=== PATIENT | female | born 1950 | race American Indian/Alaskan Native ===

== ENCOUNTER 2017-01-30 11:54 | Day surgery (SDC) | payer MEDICARE, OTHER ==
[2017-01-28 14:31] VITALS: RESP 18
--- NOTE | 2017-01-30 13:40 | CP.SDSHP ---
Same Day Surgery H & P - History Proposed Procedure: Left foot wound debridement with graft application. Pre-Op Diagnosis: Left foot venous stasis wound - Previous Medical/Surgical History Cardiac: Hypertension Pain: 5. Comments: Right eye-Glaucoma Previous Surgical History: Right Knee replacement- 2009 - Allergies Allergies: Allergies amoxicillin Allergy (Verified 01/27/17 16:13) RASH Penicillins Allergy (Verified 01/27/17 16:13) RASH shellfish derived Allergy (Verified 01/27/17 16:13) PAIN Sulfa (Sulfonamide Antibiotics) Allergy (Verified 01/27/17 16:13) RASH - Current Medications Current Medications: Losartan Lasix Neurontin 300mg TID - Physical Exam Vital Signs: Vital Signs 01/30/17 01/30/17 12:45 13:10 Temperature 97.7 F Pulse Rate 78 78 Respiratory 18 Rate Blood Pressure 131/81 O2 Sat by Pulse 100 Oximetry Mental Status: Alert & Oriented x3 Neuro: WNL Heart: WNL Lungs: WNL GI: WNL - {Optional Preform as Required} Integument: Other (Right lateral ankle partial thickness ulceration measuring 4 x 7.5 cm with sloughing exutate.) Ortho: WNL - Impression Impression: Pt was seen and examined in [facility]. Pt NPO status was confirmed. All Pre-op testing and clearance was in the chart. Pt has exhausted all conservative treatment at this time and is opting for surgical intervention. Pt was explained procedure and post-operative course. All pt's questions were answered to satisfaction. No guarantees were made. Pt understands all risks, benefits and complications of procedure. Pt will follow-up with Dr. Schaffer Pt. Evaluated Today:Candidate for Anesthesia & Procedure: Yes - Date & Time Date: 01/30/17 Time: 14:00 Short Stay Discharge - Short Stay Discharge Admitting Diagnosis/Reason for Visit: L97.912/I87.301 Disposition: HOME/ ROUTINE Medications: Acetaminophen with Codeine [Tylenol with Codeine #3 Tablet] 1 each PO TID #21 tablet Referrals: Vitaly Mabry [Primary Care Provider] - [facility] [Outside] Follow-up: Within 1 week in [facility]. Additional Instructions (Diet, Activity): Patient in good/stable condition for discharge home. Pt to resume medications per medical reconciliation. Resume regular diet. Please keep dressing clean, dry, & intact to surgical site, use plastic bag over bandage for showering, wear post op shoe at all times when ambulating, call clinic if you see signs of infection (redness, swelling, malodor), please make an appointment to see Dr. Schaffer in wound care center within 1 week for post-op check. Progress Note/Discharge Note with Instructions: - Patient evaluated bedside in recovery s/p surgical procedure. - After surgical procedure patient in NAD - (+) Void, (+) Appetite - Capillary refill time <3s and NVSI intact. - Patient denies complaints at this time - Post operative instructions and plan of care explained to patient at length. - Pt. acknowledges understanding. - Patient stable for DC per podiatric surgery
--- NOTE | 2017-01-30 13:40 | CP.PCM.PN ---
Subjective - Date & Time of Evaluation Date of Evaluation: 01/30/17 Time of Evaluation: 14:00 - Subjective Subjective: 66 year old female patient seen at bedside for pre-operative assessment concerning right leg wound graft application and wound debridement. Pt has been receiving wound care treatment isn't [facility] wound care center and is in need of surgical intervention a this time. Pt reports she has been NPO since 8pm yesterday evening. Pt reports burning and tingling in her right leg in area of wound which she attributes to he not taking her Neurontin as needed. Pt denies recent f/c/cp/sob/n/v. Objective - Vital Signs/Intake and Output Vital Signs (last 24 hours): Temp Pulse Resp BP Pulse Ox 97.7 F 78 18 131/81 100 01/30/17 12:45 01/30/17 13:10 01/30/17 12:45 01/30/17 12:45 01/30/17 12:45 - Constitutional Appears: Well, Non-toxic, No Acute Distress - Extremities Exam Additional comments: Compressive dressing clena, dry,, and intact. Neuro-vascular status intact to level of digits. Right leg lateral superficial ulceration - Neurological Exam Neurological Exam: Alert, Awake, Oriented x3 - Psychiatric Exam Psychiatric exam: Normal Affect, Normal Mood Assessment and Plan - Assessment and Plan (Free Text) Assessment: 66 year old male with right leg superficial ulceration. Plan: Pt was seen and examined in [facility] Pt NPO status was confirmed All Pre-op testing and clearance was in the chart Pt has exhausted all conservative treatment at this time and is opting for surgical intervention Pt was explained procedure and post-operative course All pt's questions were answered to satisfaction No guarantees were made Pt understands all risks, benefits and complications of procedure Pt will follow-up with Dr. Schaffer
[2017-01-30 14:33] VITALS: BMI 31.1
[2017-01-30] MEDS ORDERED: Bupivacaine 0.5% Inj(30mL) ONE (15:05)
[2017-01-30] MEDS ORDERED: Lidocaine 1% Inj (20ml) ONE (15:05)
[2017-01-30] MEDS ORDERED: Propofol 10 mg/ml Inj (20 ML) ONE (15:26)
[2017-01-30] MEDS ORDERED: Midazolam 2 MG/2 ML VIAL ONE (15:27)
[2017-01-30] MEDS ORDERED: Lidocaine Hydrochloride 5 ML INJ ONE (15:27)
[2017-01-30] MEDS ORDERED: Lactated Ringer's 1,000 ML IV ONE (15:50)
[2017-01-30] MEDS ORDERED: Bupivacaine 0.5% 50 ML IJ ONE (15:55)
[2017-01-30] MEDS ORDERED: Lidocaine 1% Inj (20ml) IJ ONE (15:55)
[2017-01-30] MEDS ORDERED: Oxycodone/Acetaminophen 5/325 mg Tab PO PRN ×2 (16:34)
[2017-01-30] MEDS ORDERED: Lactated Ringer's 1,000 ML IV SCH (16:37)
[2017-01-30] MEDS ORDERED: HYDROmorphone 0.5 mg/0.5 ml ISec IVP PRN (16:37)
--- NOTE | 2017-01-30 16:38 | PCM.SURG1 ---
Surgeon's Initial Post Op Note - Surgeon's Notes Surgeon: Dr. Bernard Piper Installer: Dr. Aranda PGY-1 Type of Anesthesia: General LMA, Local Anesthesia Administered By: Dr. Sands Pre-Operative Diagnosis: right leg chronic venous stasis ulceration Operative Findings: see operative report: Injectibles: 20 cc 1:1 mix 1% licoaine plain + 0.5 % marcaine plain. Materials: Neox cord graft 6.0x3.0cm, 4- 0 vircyl suture Post-Operative Diagnosis: same Operation Performed: right leg debridement of ulceration with application of graft Specimen/Specimens Removed: none Estimated Blood Loss: EBL {In ML}: 2 Blood Products Given: N/A Drains Used: No Drains Post-Op Condition: Good Date of Surgery/Procedure: 01/30/17 Time of Surgery/Procedure: 15:50
[2017-01-30 17:38] VITALS: O2SAT 98
[2017-01-30 18:21] VITALS: BP 141/73; PULSE 85; TEMP 98.5
--- NOTE | 2017-01-31 14:30 | OP ---
PROCEDURE DATE: 01/30/2017 SURGEON: Dr. Bernard. SLASHER HAND: Dr. Aranda, PGY-1. ANESTHESIOLOGIST: Dr. Sands. ANESTHESIA: General LMA sedation with local. PREOPERATIVE DIAGNOSIS: Right leg chronic ulceration. POSTOPERATIVE DIAGNOSIS: Right leg chronic ulceration. PROCEDURE PERFORMED: Right leg wound debridement with application of graft. INDICATIONS: The patient is a 66-year-old female with the above diagnosis. The patient has been see ing Dr. Bernard in the wound care center weekly. The patient has exhausted all conservative treatm ent at this time and now requires surgical intervention. The patient ____ after careful explanation of risks, benefits, complications, alternatives for surgical procedure. No guarantees were given nor implied. N.p.o. status was confirmed prior to taking the patient to the OR. The patient received a 1 time dose of 600 mg clindamycin IV prior to the procedure. PREPARATION: The patient was brought into the operating room, place on the operating room table in supine position. Timeout was performed prior to confirm identification of correct patient, procedure . After induction of IV sedation, the patient received a total of 20 mL of 1:1 mixture of 0.5% Mary Ellen ine plain and 1% lidocaine plain in a local block fashion to the right leg. Once local anesthesia wa s achieved, the right lower extremity were prepped and draped in normal sterile manner. The procedur e began. No tourniquet was used for this procedure. DESCRIPTION OF PROCEDURE: Attention was then directed to the lateral aspect of the right leg where s uperficial ulceration was noted measuring 4.0 x 7.5 x 0.3 cm. Using the Sunglassonix system, the wound be d was debrided of all fibrotic and nonviable tissue, which was passed from the operative field to the point of healthy bleeding at wound base and borders. A chlorhexidine scrub brush was then used to t horoughly cleanse the wound bed and the wound was copiously flushed with sterile normal saline. A 6. 0 x 3.0 cm NEOX cord graft was then moistened with sterile saline and applied to the wound bed. Usin g #4-0 Vicryl suture the corners of the graft were then sutured to the wound and anchored in place us ing simple suture technique. The wound was then dressed with Adaptic, 4 x 4 gauze, Kerlix, and the l eg was dressed with BRIAN compressive bandage. POSTOPERATIVE CONDITION: The patient tolerated anesthesia and the procedure well and was escorted to the recovery room with vital signs stable and neurovascular status intact to the right lower extremi ty. The patient is to keep the dressing clean, dry and intact and may weightbear as tolerated to the right lower extremity. She is to follow up with Dr. Bernard at the wound care center next week. IVETT ARANDA DPM Froilan Schaffer DPM cc: [id number] TT: 01/31/2017 14:29:57 jn
== END 2017-01-30 19:07 | disposition home or self-care (01) ==
LOC: H.OPSURG 11:54
PROVIDERS: ATTEND Podiatrist Foot & Ankle Surgery
DX: L97.912 Non-pressure chronic ulcer of unspecified part of right lower leg with fat layer exposed (principal); I87.301 Chronic venous hypertension (idiopathic) without complications of right lower extremity; I10 Essential (primary) hypertension
CPT/HCPCS: 11042; J2250; J2704; J2765; J3010; J7030; J7120; Q4148

== ENCOUNTER 2017-04-04 05:11 | Emergency (ER) | payer MEDICARE, SELFPAY ==
[2017-04-04 05:11] VITALS: BMI 31.1
[2017-04-04 05:23] VITALS: RESP 18; TEMP 98.4
--- NOTE | 2017-04-04 05:52 | ED PDOC ---
Lower Extremity Pain/Injury Time Seen by Provider: 04/04/17 05:22 Chief Complaint (Nursing): Lower Extremity Problem/Injury Chief Complaint (Provider): Knee Pain History Per: Patient History/Exam Limitations: no limitations Onset/Duration Of Symptoms: Days (7+) Current Symptoms Are (Timing): Still Present Severity: Moderate Additional History Per: Patient Additional Complaint(s): 66 y/o female complaining of left knee pain, with swelling, that has been constant for some time, and worse over the last week. Pain is worse with ROM and weight bearing - and has been preventing her from participating in PT for knee arthritis. No known injury or fall. No fever, chills, cough, redness, warmth, or other complaint. She reports a history of right TKR in the past, and is here this morning for a left TKR. She also has a history of DVT and is on coumadin. PMD: Diya Mabry Orthopaedist: Dr. Sevilla Past Medical History Vital Signs: Last Vital Signs Temp 98.4 F 04/04/17 05:16 Pulse 96 H 04/04/17 05:16 Resp 18 04/04/17 05:16 BP 125/87 04/04/17 05:16 Pulse Ox 97 04/04/17 05:16 - Medical History PMH: Arthritis, Diabetes, Deep Vein Thrombosis (left upper arm), HTN, Rheumatoid Arthritis Denies: Chronic Kidney Disease - Surgical History Other surgeries: (R) TKR - Family History Family History: States: Unknown Family Hx - Social History Current smoker - smoking cessation education provided: No Alcohol: None - Immunization History Hx Tetanus Toxoid Vaccination: Yes Hx Influenza Vaccination: Yes Hx Pneumococcal Vaccination: Yes - Home Medications Home Medications: Ambulatory Orders Medication Instructions Recorded Furosemide [Lasix] 40 mg PO DAILY 12/05/15 Gabapentin [Neurontin] 300 mg PO TID 12/05/15 Zolpidem [Ambien] 10 mg PO HS PRN 01/16/16 Losartan [Cozaar] 100 mg PO DAILY 02/01/16 Multivit with Calcium,Iron,Min 1 tab PO DAILY 02/01/16 [One Daily Women's] Potassium Chloride [Klor-Con 10] 10 meq PO DAILY 02/01/16 Naproxen [Naprosyn Tab] 375 mg PO Q6H PRN 04/08/16 Doxycycline Hyclate [Doryx] 1 tab PO BID 01/27/17 traMADol [Ultram] 50 mg PO TID PRN #12 tab 04/04/17 - Allergies Allergies/Adverse Reactions: Allergies Allergy/AdvReac Type Severity Reaction Status Date / Time amoxicillin Allergy RASH Verified 03/17/17 14:48 Penicillins Allergy RASH Verified 03/17/17 14:48 shellfish derived Allergy PAIN Verified 03/17/17 14:48 Sulfa (Sulfonamide Allergy RASH Verified 03/17/17 14:48 Antibiotics) Review of Systems ROS Statement: Except As Marked, All Systems Reviewed And Found Negative Musculoskeletal: Positive for: Leg Pain Physical Exam - Physical Exam Appears: Positive for: Well Head Exam: Positive for: ATRAUMATIC, NORMAL INSPECTION, NORMOCEPHALIC Skin: Positive for: Normal Color, Warm ENT: Positive for: Normal ENT Inspection Neck: Positive for: Normal Cardiovascular/Chest: Positive for: Regular Rate, Rhythm Respiratory: Positive for: Normal Breath Sounds. Negative for: Rales, Rhonchi, Wheezing Back: Positive for: Normal Inspection Extremity: Positive for: Tenderness (left knee - with rom), Swelling (slight left knee effusion, left calf swelling noted, negative Shah's Sign), Other ( No warmth or redness of the left knee. ). Negative for: Deformity Neurologic/Psych: Positive for: Alert, Oriented - Laboratory Results Result Diagrams: 04/04/17 06:00 04/04/17 06:00 - ECG O2 Sat by Pulse Oximetry: 97 Medical Decision Making Medical Decision Making: Impression: 66 y/o female with left knee pain and swelling in the setting of known history of DVT and arthritis Plan: - Toradol - Venous Doppler LE - Knee XR - Labs 07:00: Sign out to Dr. Marisa Recinosibbharath Attestation Documented by Caro Alvarez acting as a scribe for Bryson Olea MD. Provider Attestation: All medical record entries made by the Scribe were at my direction and personally dictated by me. I have reviewed the chart and agree that the record accurately reflects my personal performance of the history, physical exam, medical decision making, and the department course for this patient. I have also personally directed, reviewed, and agree with the discharge instructions and disposition. Disposition - Clinical Impression Clinical Impression: Chronic knee pain, Arthritis - Disposition Referrals: Alejandra Sevilla MD [Staff Provider] - Disposition Time: 07:00 Condition: STABLE Additional Instructions: See orthopedist for definitive management of your knee pain. Take medication as directed. Prescriptions: traMADol [Ultram] 50 mg PO TID PRN #12 tab PRN Reason: Pain, Moderate (4-7) Instructions: Osteoarthritis (ED), Knee Pain (ED) Patient Signed Over To: Froilan Cunningham III
[2017-04-04 06:23] LABS: BASO % 0.2 % (0.0-2.0); EOS # 0.1 K/uL (0.0-0.7); EOS % 0.8 % (0.0-4.0); HEMOGLOBIN 11.7 g/dL (12.0-16.0); LYMPH # 1.6 K/uL (1.0-4.3); LYMPH % 14.4 % (20.0-40.0); MEAN CELL VOLUME 86.4 fl (81.0-99.0); MEAN CORPUSCULAR HEMOGLOBIN 26.7 pg (27.0-31.0); MEAN CORPUSCULAR HGB CONC 30.9 g/dL (33.0-37.0); MEAN PLATELET VOLUME 8.9 fl (7.2-11.7); MONO # 1.3 K/uL (0.0-0.8); MONO % 11.2 % (0.0-10.0); NEUT # 8.3 K/uL (1.8-7.0); NEUT % 73.4 % (50.0-75.0); NRBC % 0.2 % (0.0-0.0); RBC 4.39 Mil/uL (3.80-5.20); WHITE BLOOD COUNT 11.3 K/uL (4.8-10.8)
[2017-04-04 06:34] LABS: ALB/GLOB RATIO 1.2 (1.0-2.1); ALBUMIN 4.3 g/dL (3.5-5.0); ALT/SGPT 41 U/L (9-52); AST/SGOT 48 U/L (14-36); BLOOD UREA NITROGEN 18 mg/dl (7-17); CALCIUM 9.5 mg/dL (8.4-10.2); GFR AFRICAN-AMERICAN > 60; GFR NON-AFRICAN AMERICAN 56
[2017-04-04 06:45] LABS: INR 0.9 (0.9-1.2); PARTIAL THROMBOPLASTIN TIME 18.7 Seconds (25.6-37.1); PROTHROMBIN TIME 10.5 Seconds (9.8-13.1)
--- NOTE | 2017-04-04 07:12 | ED PDOC ---
- Laboratory Results Result Diagrams: 04/04/17 06:00 04/04/17 06:00 - ECG O2 Sat by Pulse Oximetry: 97 (RA) Pulse Ox Interpretation: Normal Medical Decision Making Medical Decision Making: Patient signed out to provider at [address] Olea pending US duplex and reevaluation. XRay reveals significant arthritic changes US duplex is negative for DVT per Dr García radiologist. DC home w tramadol and followup w Dr Leahy who she has reported to have seen prior. Scribe Attestation Documented by Gianna Cortez acting as a scribe for Froilan Cunningham MD. Provider Attestation: All medical record entries made by the Scribe were at my direction and personally dictated by me. I have reviewed the chart and agree that the record accurately reflects my personal performance of the history, physical exam, medical decision making, and the department course for this patient. I have also personally directed, reviewed, and agree with the discharge instructions and disposition. Disposition - Clinical Impression Clinical Impression: Chronic knee pain, Arthritis - POA Present On Arrival: None - Disposition Referrals: Alejandra Leahy MD [Staff Provider] - Disposition: Routine/Home Disposition Time: 09:30 Condition: STABLE Additional Instructions: See orthopedist for definitive management of your knee pain. Take medication as directed. Prescriptions: traMADol [Ultram] 50 mg PO TID PRN #12 tab PRN Reason: Pain, Moderate (4-7) Instructions: Osteoarthritis (ED), Knee Pain (ED)
--- NOTE | 2017-04-04 09:18 | US ---
PROCEDURE: Left lower extremity Extremity Venous Doppler HISTORY: Possible DVT COMPARISON: None available. TECHNIQUE: Left lower extremity deep veins, including the common femoral, superficial femoral popliteal and posterior tibial veins were evaluated flow, compressibility and respiratory phasicity. FINDINGS: Normal flow, compressibility and respiratory phasicity was observed in the left lower extremity deep veins. . Note also made of a left-sided popliteal cyst measuring 4.7 x 1.8 x 3.3 cm. IMPRESSION: No evidence of deep venous thrombosis. . Popliteal cyst as above
[2017-04-04 10:01] VITALS: BP 133/75; PULSE 80
[2017-04-04 11:24] VITALS: O2SAT 97
--- NOTE | 2017-04-04 13:18 | CP.PCM.CON ---
History of Present Illness - History of Present Illness History of Present Illness: 66 y/o female with PMHx of Arthritis, Diabetes, Deep Vein Thrombosis (left upper arm), HTN, Rheumatoid Arthritis seen at bedside in ED complaining of pain in her left knee and leakage on her bandage due to a wound on the right leg. Pt states that she follows up with her box order person Dr. Schaffer in the wound care clinic but was unable to do so this past week due to her knee pain. Pt states that she has had this wound for a very long time. Pt states that she recently had a graft placed on the wound in January of this year. Pt states that she noticed a little drainage on her bandage and was worried of it getting infected. Pt denies of any pain to the wound site. Pt denies of any recent F/N/C/SOB today. Pt denies of any other pedal complains. PMHx: Arthritis, Diabetes, Deep Vein Thrombosis (left upper arm), HTN, Rheumatoid Arthritis PSHx: TKR, Graft placement on the wound SHx: denies Allergies: Amoxicillin, Penicillins, Sulfa drugs, Shellfish Review of Systems - Constitutional Constitutional: As Per HPI Past Patient History - Past Medical History & Family History Past Medical History?: Yes - Past Social History Alcohol: None - CARDIAC Hx Hypertension: Yes - PULMONARY Hx Respiratory Disorders: No - NEUROLOGICAL Hx Neurological Disorder: No - HEENT Hx HEENT Problems: No - RENAL Hx Chronic Kidney Disease: No - ENDOCRINE/METABOLIC Hx Endocrine Disorders: No - HEMATOLOGICAL/ONCOLOGICAL Hx Blood Disorders: No - INTEGUMENTARY Hx Dermatological Problems: Yes Hx Cellulitis: Yes - MUSCULOSKELETAL/RHEUMATOLOGICAL Hx Arthritis: Yes Hx Rheumatoid Arthritis: Yes - GASTROINTESTINAL Hx Gastrointestinal Disorders: No - GENITOURINARY/GYNECOLOGICAL Hx Genitourinary Disorders: No - PSYCHIATRIC Hx Psychophysiologic Disorder: No Hx Substance Use: No - SURGICAL HISTORY Other/Comment: Skin graft to right lower leg 05/10/14. Closure skin/ SubQ . DV t to left arm maylin-cath - ANESTHESIA Hx Anesthesia: Yes Hx Anesthesia Reactions: No Hx Malignant Hyperthermia: No Meds Home Medications: Home Medication List Medication Instructions Recorded Confirmed Type traMADol [Ultram] 50 mg PO TID PRN #12 tab 04/04/17 Rx Allergies/Adverse Reactions: Allergies Allergy/AdvReac Type Severity Reaction Status Date / Time amoxicillin Allergy RASH Verified 03/17/17 14:48 Penicillins Allergy RASH Verified 03/17/17 14:48 shellfish derived Allergy PAIN Verified 03/17/17 14:48 Sulfa (Sulfonamide Allergy RASH Verified 03/17/17 14:48 Antibiotics) Physical Exam - Constitutional Appears: Well, Non-toxic, No Acute Distress - Extremities Exam Additional comments: Right LE focused exam: VASC: DP/PT pulses are palpable 1/4, 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 - Neurological Exam Neurological exam: Alert, Oriented x3 - Psychiatric Exam Psychiatric exam: Normal Affect, Normal Mood Results - Vital Signs Recent Vital Signs: Last Vital Signs Temp 98.4 F 04/04/17 05:16 Pulse 80 04/04/17 09:18 Resp 18 04/04/17 09:18 BP 133/75 04/04/17 09:18 Pulse Ox 97 04/04/17 11:24 - Labs Result Diagrams: 04/04/17 06:00 04/04/17 06:00 Labs: Laboratory Results - last 24 hr 04/04/17 04/04/17 04/04/17 06:00 06:00 06:00 WBC 11.3 H RBC 4.39 Hgb 11.7 L Hct 37.9 MCV 86.4 MCH 26.7 L MCHC 30.9 L RDW 16.0 H Plt Count 256 MPV 8.9 Neut % (Auto) 73.4 Lymph % (Auto) 14.4 L [place] % (Auto) 11.2 H Eos % (Auto) 0.8 Baso % (Auto) 0.2 Neut # 8.3 H Lymph # 1.6 [place] # 1.3 H Eos # 0.1 Baso # 0.0 PT 10.5 INR 0.9 APTT 18.7 L Sodium 142 Potassium 4.4 Chloride 104 Carbon Dioxide 27 Anion Gap 15 BUN 18 H Creatinine 1.0 Est GFR ( Amer) > 60 Est GFR (Non-Af Amer) 56 Random Glucose 101 Calcium 9.5 Total Bilirubin 0.5 AST 48 H ALT 41 Alkaline Phosphatase 119 Total Protein 7.8 Albumin 4.3 Globulin 3.6 Albumin/Globulin Ratio 1.2 Assessment & Plan - Assessment and Plan (Free Text) Assessment: 66 y/o female seen at bedside in ED for a wound on distal lateral aspect of the right leg secondary to venous stasis Plan: Pt evaluated and chart reviewed Pt discussed in details with attending Dr. Schaffer Vitals and labs reviewed (Afebrile, WBC @ 11.3) Dressing changed using adaptic, DSD, kurlix Carrera compression applied up to the knee Pt educated the importance of keeping the dressing dry and clean Pt educated the importance of following up with Dr. Schaffer at wound care center Pt demonstrated verbal understanding Thank you for podiatry consult
--- NOTE | 2017-04-04 16:40 | RAD ---
PROCEDURE: Left Knee Radiographs. HISTORY: Pain. COMPARISON: Comparison made with radiographs of the left knee dated 04/16/2016 FINDINGS: BONES: No definitive radiographic evidence of acute displaced fracture nor dislocation. JOINTS: Severe tricompartmental degenerative osteoarthritis with joint space narrowing, subchondral cystic changes and sclerosis. JOINT EFFUSION: Questionable small joint effusion OTHER FINDINGS: None. IMPRESSION: Severe tricompartmental degenerative osteoarthritis. No definitive fracture. The
== END 2017-04-04 13:30 | disposition home or self-care (01) ==
LOC: H.ER 05:11
DX: M25.562 Pain in left knee (principal); M17.12 Unilateral primary osteoarthritis, left knee; Z86.718 Personal history of other venous thrombosis and embolism; R60.0 Localized edema; E11.9 Type 2 diabetes mellitus without complications; G89.29 Other chronic pain; I10 Essential (primary) hypertension; Z88.0 Allergy status to penicillin
CPT/HCPCS: 73562; 80053; 85025; 85610; 85730; 93971; 96374; 99283; J1885

== ENCOUNTER 2017-05-26 06:16 | Inpatient (IN) | payer MEDICARE, SELFPAY ==
[2017-05-26 06:29] VITALS: BMI 30.2
[2017-05-26] MEDS ORDERED: Sodium Chloride 0.9% 20 ML IV ONE (07:45)
[2017-05-26] MEDS ORDERED: Absorbable Gelatin Sponge Size 100 ONE (07:46)
[2017-05-26] MEDS ORDERED: Thrombin Topical 5,000 IU Spray Kit ONE (07:46)
[2017-05-26] MEDS ORDERED: Bacitracin Ointment 30 GM TUBE ONE (07:46)
[2017-05-26] MEDS ORDERED: Lactated Ringer's 1,000 ML IV ONE ×2 (07:50→13:00)
[2017-05-26] MEDS ORDERED: Midazolam 2 MG/2 ML VIAL ONE (08:12)
[2017-05-26] MEDS ORDERED: Propofol 10 mg/ml Inj (20 ML) ONE (08:12)
[2017-05-26] MEDS ORDERED: Rocuronium 10 mg/ml (5 ml) ONE ×2 (08:14→10:35)
[2017-05-26] MEDS: Bupivacaine 0.5% Inj(30mL) ONE ×2 (09:57→11:00)
[2017-05-26] MEDS: Morphine 1 mg/ml preservative-free Inj(Duramorph) ONE ×2 (09:57→11:00)
[2017-05-26] MEDS ORDERED: Sodium Chloride 0.9% Inj (10mL) IV ONE ×2 (09:57→11:00)
[2017-05-26] MEDS: EPINEPHrine 1 mg/ml (1:1000) Inj ONE ×2 (09:57→11:00)
[2017-05-26] MEDS ORDERED: Neostigmine Methylsulfate 2 MG/2 ML ML IV ONE (11:12)
[2017-05-26] MEDS: HYDROmorphone 0.5 mg/0.5 ml ISec IVP PRN ×2 (11:50→12:20)
--- NOTE | 2017-05-26 12:25 | PCM.SURG1 ---
Surgeon's Initial Post Op Note - Surgeon's Notes Surgeon: Nick Rivera MD Java Developer Consultant: Briana Ghotra PA-C, Dorene Type of Anesthesia: General Endo Pre-Operative Diagnosis: Left knee severe osteoarthritis Operative Findings: see op report Post-Operative Diagnosis: same as pre-op dx Operation Performed: Left TKR Specimen/Specimens Removed: left knee bone and soft tissue Estimated Blood Loss: EBL {In ML}: 200 Date of Surgery/Procedure: 05/26/17 Time of Surgery/Procedure: 09:30
--- NOTE | 2017-05-26 13:31 | RAD ---
PROCEDURE: Left Knee Radiographs. HISTORY: Left TKR COMPARISON: 04/04/2017 FINDINGS: BONES: Status post left TKR. No osseous fracture. Postoperative changes in anterior soft tissues of. JOINTS: As above JOINT EFFUSION: None. OTHER FINDINGS: None. IMPRESSION: Left total knee replacement
[2017-05-26] MEDS: Brimonidine 0.2% 50 DROP/5 ML BOTTLE OU SCH (16:06)
[2017-05-26] MEDS: Latanoprost 0.005% Opht SOUTION OU SCH (17:51)
[2017-05-26] MEDS: Lactated Ringer's 1,000 ML IV SCH (17:51)
--- NOTE | 2017-05-26 19:11 | CP.PCM.CON ---
History of Present Illness - History of Present Illness History of Present Illness: 66 year old female who underwent left total knee replacement seen at bedside for weekly venous stasis ulcer dressing change. Patient denies any acute changes to the ulcer and says that she has no pain in the area. Patient denies any further pedal complaints at this time. Patient denies N/V/F/C/CP/SOB Review of Systems - Review of Systems Review of Systems: ROS unremarkable outside of HPI Past Patient History - Past Medical History & Family History Past Medical History?: Yes - Past Social History Smoking Status: Never Smoked - CARDIAC Hx Cardiac Disorders: Yes Hx Hypertension: Yes Hx Peripheral Vascular Disease: Yes - PULMONARY Hx Respiratory Disorders: No - NEUROLOGICAL Hx Neurological Disorder: No - HEENT Hx HEENT Problems: No - RENAL Hx Chronic Kidney Disease: No - ENDOCRINE/METABOLIC Hx Endocrine Disorders: No - HEMATOLOGICAL/ONCOLOGICAL Hx Blood Disorders: No Other/Comment: R ankle blood clots 2013 - INTEGUMENTARY Hx Dermatological Problems: Yes Hx Cellulitis: Yes Other/Comment: WOUND ULCER R leg - MUSCULOSKELETAL/RHEUMATOLOGICAL Hx Musculoskeletal Disorders: Yes Hx Arthritis: Yes Hx Falls: No Hx Osteoarthritis: Yes Hx Rheumatoid Arthritis: Yes Hx Unsteady Gait: Yes Other/Comment: Chronic knee pain. Chronic R lower leg ulcer - GASTROINTESTINAL Hx Gastrointestinal Disorders: No - GENITOURINARY/GYNECOLOGICAL Hx Genitourinary Disorders: No - PSYCHIATRIC Hx Psychophysiologic Disorder: No Hx Emotional Abuse: No Hx Physical Abuse: No Hx Substance Use: No - SURGICAL HISTORY Hx Surgeries: Yes Hx Joint Replacement: Yes (TOTAL RIGHT KNEE REPLACEMENT 2010) Hx Orthopedic Surgery: Yes (left knee replaced) Other/Comment: SX FOR BLOOD CLOTS RT ANKLE - ANESTHESIA Hx Anesthesia: Yes Hx Anesthesia Reactions: No Hx Malignant Hyperthermia: No Has any member of the family had a problem w/ anesthesia?: No Meds Allergies/Adverse Reactions: Allergies Allergy/AdvReac Type Severity Reaction Status Date / Time amoxicillin Allergy RASH Verified 05/26/17 06:46 Penicillins Allergy RASH Verified 05/26/17 06:46 shellfish derived Allergy PAIN Verified 05/26/17 06:46 Sulfa (Sulfonamide Allergy RASH Verified 05/26/17 06:46 Antibiotics) - Medications Medications: Current Medications Brimonidine Tartrate (Alphagan 0.2% Opht) 1 drop OU DAILY [facility] Last Admin: 05/26/17 16:06 Dose: 1 drop Celecoxib (Celebrex) 200 mg PO Q12 [facility] Enoxaparin Sodium (Lovenox) 30 mg SC Q12 [facility] PRN Reason: Protocol Furosemide (Lasix) 40 mg PO DAILY [facility] Gabapentin (Neurontin) 300 mg PO TID [facility] Last Admin: 05/26/17 17:50 Dose: 300 mg Lactated Ringer's (Lactated Ringer's) 1,000 mls @ 100 mls/hr IV .Q10H [facility] Last Admin: 05/26/17 17:51 Dose: Not Given Ketorolac Tromethamine (Toradol) 15 mg IVP Q8 [facility] Last Admin: 05/26/17 17:54 Dose: 15 mg Latanoprost (Xalatan Opht) 1 drop OU DAILY [facility] Last Admin: 05/26/17 17:51 Dose: 1 drop Losartan Potassium (Cozaar) 100 mg PO DAILY [facility] Last Admin: 05/26/17 17:48 Dose: 100 mg Oxycodone HCl (Oxycontin Extended Release Tab) 10 mg PO Q12 [facility] Stop: 06/09/17 21:01 Oxycodone/Acetaminophen (Percocet 5/325 Mg Tab) 1 tab PO Q4 PRN PRN Reason: pain4-6 Stop: 05/29/17 12:36 Potassium Chloride (K-Dur 20 Meq Er Tab) 20 meq PO DAILY [facility] Senna/Docusate Sodium (Senokot S 50 Mg-8.6 Mg) 2 tab PO HS [facility] Zolpidem Tartrate (Ambien) 5 mg PO HS PRN PRN Reason: Insomnia Physical Exam - Constitutional Appears: Well, Non-toxic, No Acute Distress - Extremities Exam Additional comments: RLE focused exam Vasc: DP/PT pulses palpable 1/4. Skin temperature warm to warm. CFT < 3 seconds to all digits. Pitting edema noted. Neuro: Epicritic and protective sensation grossly intact b/l Derm: Venous stasis ulceration noted to right lateral leg measuring roughly 3 cm x 4 cm x 0.1 cm. Wound base is granular. Otherwise no open lesions, wounds, maceration, xerosis, abnormal pigmentation or abnormal growths noted at this time MSK: POP to ulcer site - Neurological Exam Neurological exam: Alert, Oriented x3 - Psychiatric Exam Psychiatric exam: Normal Affect, Normal Mood Results - Vital Signs Recent Vital Signs: Last Vital Signs Temp 98.4 F 05/26/17 17:00 Pulse 84 05/26/17 17:48 Resp 18 05/26/17 17:00 BP 112/70 05/26/17 17:48 Pulse Ox 100 05/26/17 16:15 - Labs Labs: Laboratory Results - last 24 hr 05/26/17 07:34 Blood Type A POSITIVE Antibody Screen Negative BBK History Checked Patient has bt Assessment & Plan - Assessment and Plan (Free Text) Assessment: 66 year old female seen bedside for right leg venous stasis ulcer dressing change Plan: Patient seen and evaluated Plan discussed with Dr. York Right leg dressed with alginate dressing and two layer compressive dressing Patient to have dressing changed again this Tuesday 05/29, if she is still in house Podiatry will change dressing at that time. - Date & Time Date: 05/26/17 Time: 17:13
[2017-05-26] MEDS: oxyCODONE 10 mg ER Tab (oxyCONTIN) PO SCH (21:26)
[2017-05-26] MEDS: Docusate-Senna 50 mg-8.6 mg Tab PO SCH (21:27)
[2017-05-26] MEDS ORDERED: Vancomycin 500 mg Inj IVPB ONE (21:30)
--- NOTE | 2017-05-26 23:32 | OP ---
PROCEDURE DATE: 05/26/2017 ATTENDING PHYSICIAN: Nick Rivera MD STRAPPING MACHINE TENDER: Briaan Ghotra PA-C PREOPERATIVE DIAGNOSIS: Left knee osteoarthritis. POSTOPERATIVE DIAGNOSIS: Left knee osteoarthritis. PROCEDURE: Left total knee replacement. IMPLANT SIZES: [employer] CCK implant, size 2 stemmed femur, size 2 stemmed tibial baseplate, 22 mm constrained polyethylene and a 29 mm patella bone. TYPE OF ANESTHESIA: General. ESTIMATED BLOOD LOSS: 100 mL. COMPLICATIONS: None. HISTORY: The patient with prolonged history of left knee pain progressively getting worse despite extensive conservative management, which included activity modification, injections, anti-inflammatory modification, and physical therapy. X-rays had revealed advanced arthritis. The patient was indicated for total knee replacement due to continued pain and limited mobility. I had a detailed discussion with the patient in the office explaining the nature of the surgery, alternatives of surgery, risks and benefits, rehabilitation protocol, and surgical markings. Risks of surgery include but not limited to continued pain, lack of motion, infection, vascular injury, DVT/PE, nerve injury including peroneal nerve dysfunction, reflex sympathetic dystrophy, compartment syndrome, unforeseen medical and/or anesthesia complications, limb loss, and even . The patient expressed an understanding of the risks and possible benefits of the procedure, and is also aware of the alternatives to surgery. PROCEDURE: On the day of surgery, the patient was admitted to preoperative holding area. A laterality sheet was completed confirming the correct operative site. The correct surgical knee was marked in the holding area and informed consent was signed from the patient. Once again, I reviewed the risks and benefits of the surgery with the patient in detail. These risks include but are not limited to continued pain, lack of motion, infection, vascular injury, DVT/PE, nerve injury including peroneal nerve dysfunction, reflex sympathetic dystrophy, symptomatic hardware, need for further procedure and surgeries, instability, iatrogenic fractures, compartment syndrome, unforeseen medical and/or anesthesia complications, limb loss, and even . The patient expressed an understanding of the risks and possible benefits of the procedure, also aware of the alternatives to surgery and signed the informed consent. The patient was transported to the operating room and placed in the supine position, general anesthesia was obtained. Exam under anesthesia revealed a fusion of 2+ range of motion is from 5 to 90 also include grade III laxity on varus and valgus stress. A padded tourniquet was applied to the patient's operative thigh and appropriate prophylactic antibiotics were given. The operative leg was draped and prepped in standard sterile manner. Timeout was completed confirming the patient's left knee to be the correct operative site. Using an Esmarch, the extremity was exsanguinated and tourniquet was inflated to 350 mmHg. The surgical incision markings were made using patella border, tibial tubercle, patella, and quadriceps tendon. Using a #10 blade, a midline incision was made. Skin dissection was taken until the prepatellar fascia was identified and the corners of the patellar tendon were marked for proper closure at the end of the procedure. Using a fresh #10 blade, a medial parapatellar arthrotomy was performed. The knee was exposed in the standard manner. The deep MCL was elevated for exposure, medial and lateral menisci were removed. ACL and PCL were also transected. The tibia was subluxed anteriorly. Planned tibial cut was made with power saw, using extramedullary guide, perpendicular to mechanical axis of the tibia. After the cut was made, the alignment was also checked and was found to be appropriate. Tibial cut surface was measured with trial base plate and it was noted that size 2 tibial baseplate was provide sufficient coverage without overhang. Tibial component was externally rotated and marked. Next, the knee was placed into 90 degrees of flexion. A drill hole was made within the femoral notch anterior to PCL insertion for placement of intramedullary femoral nic. Intramedullary femoral nic was inserted within the femoral canal and planned distal femoral cut was made. After the cut, knee was brought into full extension. Spacer blocks were used to check the extension balancing both in full extension and 30 degrees of flexion. It was found that 18 mm, trial spacer block allowed full extension with symmetric varus and valgus balancing. Next, we proceed with patella resurfacing. Patella width was found to 24 mm. Using the free-hand technique, the arthritic patellar surface was resected. Patella was sized using the guide and it was noted that 29 mm patella dome button would be appropriate for the patient. Next, the size of femoral component was determined using the posterior referencing guide. It was noted that a size 2 stemmed femoral implant femur would be appropriate for this patient without causing any significant notching. A 4 x 1 cutting block was placed and flexion gap balancing was checked. The flexion gap was found to be symmetric to the extension gap. Anterior and posterior condyle, anterior and posterior chamfer cuts were made. Next, appropriate size box cut for femoral component was prepared using the guide. The femoral trial component was impacted onto the distal femur. Appropriate size tibial trial component was also placed on the cut surface of the tibia. Using the drill and punch, keel for tibial implant was prepared. Trial tibial tray was secured onto the tibia using pins. Different size trial polyethylene inserts were secured onto the trial tibial tray to critically assess the following parameters: Full range of motion, extension and flexion gap balancing, mid-flexion stability, anterior and posterior drawer, and patellar tracking. All parameter were found to be satisfactory with 22 mm constrained polyethylene insert. During this procedure, I was assisted by Briana Ghotra PA-C, who assisted in positioning the patient on the operating room table as well as transferring the patient from the operating room table to the recovery room stretcher. In addition, Briana Ghotra PA-C, assisted me during the actual operative procedure by positioning, protecting critical neurovascular structures, exposure of the joint, and proper positioning of the implants. The presence of Briana Ghotra PA-C as my operative server assistant, was medically necessary to ensure the utmost safety of the patient in the pre, intra-, and postoperative periods. Nick Rivera MD
[2017-05-27] MEDS: Oxycodone/Acetaminophen 5/325 mg Tab PO PRN ×2 (01:03→06:40)
[2017-05-27 07:25] LABS: BASO % 0.5 % (0.0-2.0); EOS # 0.4 K/uL (0.0-0.7); EOS % 4.7 % (0.0-4.0); HEMATOCRIT 28.1 % (34.0-47.0); LYMPH # 1.2 K/uL (1.0-4.3); LYMPH % 13.7 % (20.0-40.0); MEAN CELL VOLUME 86.5 fl (81.0-99.0); MEAN CORPUSCULAR HGB CONC 31.3 g/dL (33.0-37.0); MEAN PLATELET VOLUME 8.8 fl (7.2-11.7); MONO % 11.1 % (0.0-10.0); NRBC % 0.1 % (0.0-0.0); RED CELL DISTRIBUTION WIDTH 17.3 % (11.5-14.5); WHITE BLOOD COUNT 8.6 K/uL (4.8-10.8)
[2017-05-27 07:37] LABS: BLOOD UREA NITROGEN 18 mg/dl (7-17); CALCIUM 8.4 mg/dL (8.4-10.2); CARBON DIOXIDE 25 mmol/L (22-30); CHLORIDE 107 mmol/L (98-107); GFR AFRICAN-AMERICAN > 60; GLUCOSE,RANDOM 92 mg/dL (65-105); POTASSIUM 4.3 MMOL/L (3.6-5.0); SODIUM 138 mmol/l (132-148)
[2017-05-27] MEDS: oxyCODONE 10 mg ER Tab (oxyCONTIN) PO SCH ×2 (09:01→21:35)
[2017-05-27] MEDS: Potassium Chloride 20 mEq ER Tab PO SCH (09:02)
[2017-05-27] MEDS: Latanoprost 0.005% Opht SOUTION OU SCH (09:04)
--- NOTE | 2017-05-27 09:06 | CP.PCM.PN ---
Subjective - Date & Time of Evaluation Date of Evaluation: 05/27/17 Time of Evaluation: 08:15 - Subjective Subjective: S/P LTKR POD#1 Pt seen and examined at bedside, comfortable in bed Pt c/o mild left knee pain, pt states has itchiness after taking percocet Pt denies any SOB, chest pain, N/V/D, numbness/tingling LLE Objective - Vital Signs/Intake and Output Vital Signs (last 24 hours): Temp Pulse Resp BP Pulse Ox 99.7 F H 90 18 122/78 99 05/27/17 07:34 05/27/17 07:34 05/27/17 07:34 05/27/17 07:34 05/27/17 07:34 - Medications Medications: Current Medications Brimonidine Tartrate (Alphagan 0.2% Opht) 1 drop OU DAILY [facility] Last Admin: 05/26/17 16:06 Dose: 1 drop Celecoxib (Celebrex) 200 mg PO Q12 [facility] Last Admin: 05/26/17 21:26 Dose: 200 mg Enoxaparin Sodium (Lovenox) 30 mg SC Q12H [facility] PRN Reason: Protocol Furosemide (Lasix) 40 mg PO DAILY [facility] Gabapentin (Neurontin) 300 mg PO TID [facility] Last Admin: 05/26/17 17:50 Dose: 300 mg Lactated Ringer's (Lactated Ringer's) 1,000 mls @ 100 mls/hr IV .Q10H [facility] Last Admin: 05/26/17 17:51 Dose: Not Given Ketorolac Tromethamine (Toradol) 15 mg IVP Q8 [facility] Last Admin: 05/27/17 00:06 Dose: 15 mg Latanoprost (Xalatan Opht) 1 drop OU DAILY [facility] Last Admin: 05/26/17 17:51 Dose: 1 drop Losartan Potassium (Cozaar) 100 mg PO DAILY [facility] Last Admin: 05/26/17 17:48 Dose: 100 mg Oxycodone HCl (Oxycontin Extended Release Tab) 10 mg PO Q12 [facility] Stop: 06/09/17 21:01 Last Admin: 05/26/17 21:26 Dose: 10 mg Potassium Chloride (K-Dur 20 Meq Er Tab) 20 meq PO DAILY [facility] Senna/Docusate Sodium (Senokot S 50 Mg-8.6 Mg) 2 tab PO HS [facility] Last Admin: 05/26/17 21:27 Dose: 2 tab Tramadol HCl (Ultram) 50 mg PO Q4 PRN PRN Reason: pain4-6 Zolpidem Tartrate (Ambien) 5 mg PO HS PRN PRN Reason: Insomnia Last Admin: 05/26/17 23:32 Dose: 5 mg - Labs Labs: 05/27/17 06:30 05/27/17 06:30 - Constitutional Appears: Well, No Acute Distress - Respiratory Exam Respiratory Exam: Clear to Ausculation Bilateral, NORMAL BREATHING PATTERN - Cardiovascular Exam Cardiovascular Exam: REGULAR RHYTHM, RRR - Extremities Exam Additional comments: LLE: Knee dressing C/D/I +TTP left calf, calf soft and compressible, no ttp right calf N/V intact distally Distal pulses wnl Assessment and Plan - Assessment and Plan (Free Text) Assessment: 66 yo F s/p LTKR POD#1 Plan: 66 yo F s/p LTKR POD#1 Pain Control Percocet switched to tramadol PT/OT B/L LE US to r/o dvt lle DVT ppx- lovenox 30mg bid F/U labs Discussed with Dr. Rivera
[2017-05-27] MEDS: Brimonidine 0.2% 50 DROP/5 ML BOTTLE OU SCH (09:10)
[2017-05-27] MEDS: Enoxaparin 30 mg Syringe SC SCH ×2 (10:07→21:36)
--- NOTE | 2017-05-27 15:19 | US ---
PROCEDURE: Bilateral lower extremity venous duplex Doppler. HISTORY: S/p L TKR,. Hx of DVT on RLE COMPARISON: None available. TECHNIQUE: Bilateral common femoral, superficial femoral, popliteal and posterior tibial veins were evaluated. Flow was assessed with color Doppler, compressibility, assessment of phasic flow and augmentation response. FINDINGS: COMMON FEMORAL VEIN: Right CFV: Unremarkable. Left CFV: Unremarkable. SUPERFICIAL FEMORAL VEIN: Right SFV: Unremarkable. Left SFV: Unremarkable. POPLITEAL VEIN: Right Popliteal: Unremarkable. Left Popliteal: Unremarkable. POSTERIOR TIBIAL VEIN: Right PTV: Not visualized due to overlying bandages. . Left PTV: Unremarkable. OTHER FINDINGS: None. IMPRESSION: Right posterior tibial vein not visualized due to overlying bandages. Remaining visualized deep veins of the right and left lower extremities are patent without evidence of DVT.
--- NOTE | 2017-05-27 17:36 | CP.PCM.HP ---
<Rosa Bernard - Last Filed: 05/27/17 17:29> History of Present Illness - History of Present Illness History of Present Illness: 66 year old female with PMHx of HTN, PVD, DVT, glaucoma admitted for left total knee replacement. Patient seen and examined with attending. Reports that pain is well controlled with medications. Passing flatus, but has not yet had a bowel movement. Reporting mild left calf pain this morning. Denies Cp, SOB, N/V, abdominal pain, diarrheas. Present on Admission - Present on Admission Any Indicators Present on Admission: No History of DVT/PE: Yes History of Uncontrolled Diabetes: No Urinary Catheter: No Decubitus Ulcer Present: No Review of Systems - Review of Systems All systems: reviewed and no additional remarkable complaints except (as per HPI ) Past Patient History - Past Medical History & Family History Past Medical History?: Yes - Past Social History Smoking Status: Never Smoked - CARDIAC Hx Hypertension: Yes - PULMONARY Hx Respiratory Disorders: No - NEUROLOGICAL Hx Neurological Disorder: No - HEENT Hx HEENT Problems: No - RENAL Hx Chronic Kidney Disease: No - ENDOCRINE/METABOLIC Hx Endocrine Disorders: No - HEMATOLOGICAL/ONCOLOGICAL Hx Blood Disorders: No Other/Comment: R ankle blood clots 2013 - INTEGUMENTARY Hx Dermatological Problems: Yes Hx Cellulitis: Yes Other/Comment: WOUND ULCER R leg - MUSCULOSKELETAL/RHEUMATOLOGICAL Hx Arthritis: Yes - GASTROINTESTINAL Hx Gastrointestinal Disorders: No - GENITOURINARY/GYNECOLOGICAL Hx Genitourinary Disorders: No - PSYCHIATRIC Hx Psychophysiologic Disorder: No Hx Emotional Abuse: No Hx Physical Abuse: No Hx Substance Use: No - SURGICAL HISTORY Hx Surgeries: Yes Hx Joint Replacement: Yes (TOTAL RIGHT KNEE REPLACEMENT 2010) Hx Orthopedic Surgery: Yes (left knee replaced) Other/Comment: SX FOR BLOOD CLOTS RT ANKLE - ANESTHESIA Hx Anesthesia: Yes Hx Anesthesia Reactions: No Hx Malignant Hyperthermia: No Has any member of the family had a problem w/ anesthesia?: No Meds Allergies/Adverse Reactions: Allergies Allergy/AdvReac Type Severity Reaction Status Date / Time amoxicillin Allergy RASH Verified 05/26/17 06:46 Penicillins Allergy RASH Verified 05/26/17 06:46 shellfish derived Allergy PAIN Verified 05/26/17 06:46 Sulfa (Sulfonamide Allergy RASH Verified 05/26/17 06:46 Antibiotics) Physical Exam - Constitutional Appears: No Acute Distress - Eye Exam Eye Exam: Normal appearance - ENT Exam ENT Exam: Mucous Membranes Moist - Respiratory Exam Respiratory Exam: Clear to Auscultation Bilateral, NORMAL BREATHING PATTERN - Cardiovascular Exam Cardiovascular Exam: REGULAR RHYTHM, +S1, +S2 - GI/Abdominal Exam GI & Abdominal Exam: Normal Bowel Sounds, Soft. absent: Distended, Firm, Guarding, Tenderness - Extremities Exam Extremities exam: Positive for: calf tenderness, normal inspection. Negative for: pedal edema Additional comments: mild tenderness in left calf - Neurological Exam Neurological exam: Alert, Oriented x3 Results - Vital Signs Recent Vital Signs: Last Vital Signs Temp 98.5 F 05/27/17 16:13 Pulse 84 05/27/17 16:13 Resp 20 05/27/17 16:13 BP 135/83 05/27/17 16:13 Pulse Ox 97 05/27/17 16:13 - Labs Result Diagrams: 05/27/17 06:30 05/27/17 06:30 Labs: Laboratory Results - last 24 hr 05/27/17 05/27/17 06:30 06:30 WBC 8.6 RBC 3.25 L Hgb 8.8 L D Hct 28.1 L MCV 86.5 MCH 27.0 MCHC 31.3 L RDW 17.3 H Plt Count 164 MPV 8.8 Neut % (Auto) 70.0 Lymph % (Auto) 13.7 L Drew % (Auto) 11.1 H Eos % (Auto) 4.7 H Baso % (Auto) 0.5 Neut # 6.0 Lymph # 1.2 Drew # 1.0 H Eos # 0.4 Baso # 0.0 Sodium 138 Potassium 4.3 Chloride 107 Carbon Dioxide 25 Anion Gap 11 BUN 18 H Creatinine 1.1 Est GFR ( Amer) > 60 Est GFR (Non-Af Amer) 50 Random Glucose 92 Calcium 8.4 Assessment & Plan - Assessment and Plan (Free Text) Plan: S/P LTKR POD#1 admit in MedSurg after surgery c/w Pain Control PT/OT evaluation and treatment f/u B/L LE US to r/o DVT in lower extremities f/u labs f/u Ortho surgical team recommendations.Dr. Rivera HTN controlled c/w home meds DVT ppx- lovenox 30mg bid - Date & Time Date: 05/27/17 Time: 08:30 <Yfn Carmona - Last Filed: 05/28/17 10:09> Results - Vital Signs Recent Vital Signs: Last Vital Signs Temp 98.7 F 05/28/17 07:24 Pulse 92 H 05/28/17 09:06 Resp 18 05/28/17 07:24 BP 146/88 05/28/17 09:06 Pulse Ox 98 05/28/17 07:24 - Labs Result Diagrams: 05/28/17 05:00 05/28/17 05:00 Labs: Laboratory Results - last 24 hr 05/28/17 05/28/17 05:00 05:00 WBC 8.2 RBC 3.06 L Hgb 8.4 L Hct 26.2 L MCV 85.5 MCH 27.3 MCHC 31.9 L RDW 17.3 H Plt Count 158 MPV 9.0 Neut % (Auto) 64.6 Lymph % (Auto) 14.0 L Drew % (Auto) 14.6 H Eos % (Auto) 6.1 H Baso % (Auto) 0.7 Neut # 5.3 Lymph # 1.2 Drew # 1.2 H Eos # 0.5 Baso # 0.1 Sodium 137 Potassium 4.1 Chloride 104 Carbon Dioxide 25 Anion Gap 12 BUN 17 Creatinine 1.1 Est GFR ( Amer) > 60 Est GFR (Non-Af Amer) 50 Random Glucose 90 Calcium 8.8 Assessment & Plan (1) Total knee replacement status Status: Acute (2) Hypertension Status: Chronic (3) Arthritis Status: Acute - Assessment and Plan (Free Text) Plan: I was present during evaluation and discussed with DR Bernard re plans of care and treatment. Yfn Carmona M.D.
[2017-05-27] MEDS: Docusate-Senna 50 mg-8.6 mg Tab PO SCH (21:37)
[2017-05-28 06:19] LABS: BASO # 0.1 K/uL (0.0-0.2); BASO % 0.7 % (0.0-2.0); EOS # 0.5 K/uL (0.0-0.7); EOS % 6.1 % (0.0-4.0); HEMATOCRIT 26.2 % (34.0-47.0); LYMPH # 1.2 K/uL (1.0-4.3); MEAN CELL VOLUME 85.5 fl (81.0-99.0); MEAN CORPUSCULAR HEMOGLOBIN 27.3 pg (27.0-31.0); MEAN CORPUSCULAR HGB CONC 31.9 g/dL (33.0-37.0); MONO # 1.2 K/uL (0.0-0.8); MONO % 14.6 % (0.0-10.0); NEUT # 5.3 K/uL (1.8-7.0); NEUT % 64.6 % (50.0-75.0); RED CELL DISTRIBUTION WIDTH 17.3 % (11.5-14.5); WHITE BLOOD COUNT 8.2 K/uL (4.8-10.8)
[2017-05-28 06:26] LABS: BLOOD UREA NITROGEN 17 mg/dl (7-17); CALCIUM 8.8 mg/dL (8.4-10.2); CARBON DIOXIDE 25 mmol/L (22-30); CHLORIDE 104 mmol/L (98-107); GFR AFRICAN-AMERICAN > 60; GLUCOSE,RANDOM 90 mg/dL (65-105); POTASSIUM 4.1 MMOL/L (3.6-5.0); SODIUM 137 mmol/l (132-148)
[2017-05-28] MEDS: Potassium Chloride 20 mEq ER Tab PO SCH (09:04)
[2017-05-28] MEDS: Enoxaparin 30 mg Syringe SC SCH ×2 (09:05→21:44)
[2017-05-28] MEDS: Brimonidine 0.2% 50 DROP/5 ML BOTTLE OU SCH (09:06)
[2017-05-28] MEDS: Latanoprost 0.005% Opht SOUTION OU SCH (09:07)
[2017-05-28] MEDS: oxyCODONE 10 mg ER Tab (oxyCONTIN) PO SCH ×2 (09:10→21:43)
--- NOTE | 2017-05-28 10:07 | CP.PCM.PN ---
Subjective - Date & Time of Evaluation Date of Evaluation: 05/28/17 Time of Evaluation: 10:05 - Subjective Subjective: patient is doing a lot better Noted two sites of hematoma on the wound as noted in the dressing. hematoma has not progressed since noted yesterday Has no fever. Patient has a hx of post surgical infections in the past. Objective - Vital Signs/Intake and Output Vital Signs (last 24 hours): Temp Pulse Resp BP Pulse Ox 98.7 F 92 H 18 146/88 98 05/28/17 07:24 05/28/17 09:06 05/28/17 07:24 05/28/17 09:06 05/28/17 07:24 - Medications Medications: Current Medications Brimonidine Tartrate (Alphagan 0.2% Opht) 1 drop OU DAILY [facility] Last Admin: 05/28/17 09:06 Dose: 1 drop Celecoxib (Celebrex) 200 mg PO Q12 [facility] Last Admin: 05/28/17 09:04 Dose: 200 mg Diphenhydramine HCl (Benadryl) 25 mg PO Q6 PRN PRN Reason: Itching / Pruritus Last Admin: 05/28/17 09:11 Dose: 25 mg Doxycycline Hyclate (Doryx) 100 mg PO Q12 [facility] Enoxaparin Sodium (Lovenox) 30 mg SC Q12H [facility] PRN Reason: Protocol Last Admin: 05/28/17 09:05 Dose: 30 mg Furosemide (Lasix) 40 mg PO DAILY [facility] Last Admin: 05/28/17 09:04 Dose: 40 mg Gabapentin (Neurontin) 300 mg PO TID [facility] Last Admin: 05/28/17 09:04 Dose: 300 mg Lactated Ringer's (Lactated Ringer's) 1,000 mls @ 100 mls/hr IV .Q10H [facility] Last Admin: 05/26/17 17:51 Dose: Not Given Ketorolac Tromethamine (Toradol) 15 mg IVP Q8 [facility] Last Admin: 05/28/17 09:05 Dose: 15 mg Latanoprost (Xalatan Opht) 1 drop OU DAILY [facility] Last Admin: 05/28/17 09:07 Dose: 1 drop Losartan Potassium (Cozaar) 100 mg PO DAILY [facility] Last Admin: 05/28/17 09:06 Dose: 100 mg Oxycodone HCl (Oxycontin Extended Release Tab) 10 mg PO Q12 [facility] Stop: 06/09/17 21:01 Last Admin: 05/28/17 09:10 Dose: 10 mg Potassium Chloride (K-Dur 20 Meq Er Tab) 20 meq PO DAILY [facility] Last Admin: 05/28/17 09:04 Dose: 20 meq Senna/Docusate Sodium (Senokot S 50 Mg-8.6 Mg) 2 tab PO HS [facility] Last Admin: 05/27/17 21:37 Dose: 2 tab Tramadol HCl (Ultram) 50 mg PO Q4 PRN PRN Reason: pain4-6 Last Admin: 05/27/17 18:47 Dose: 50 mg Zolpidem Tartrate (Ambien) 5 mg PO HS PRN PRN Reason: Insomnia Last Admin: 05/28/17 00:25 Dose: 5 mg - Labs Labs: 05/28/17 05:00 05/28/17 05:00 - Head Exam Head Exam: NORMAL INSPECTION - Eye Exam Eye Exam: Normal appearance - ENT Exam ENT Exam: Mucous Membranes Moist - Respiratory Exam Respiratory Exam: Clear to Ausculation Bilateral - Cardiovascular Exam Cardiovascular Exam: REGULAR RHYTHM - GI/Abdominal Exam GI & Abdominal Exam: Normal Bowel Sounds - Neurological Exam Neurological Exam: Awake, Oriented x3 - Psychiatric Exam Psychiatric exam: Normal Mood Assessment and Plan (1) Total knee replacement status Status: Acute (2) Hypertension Status: Chronic (3) Arthritis Status: Acute - Assessment and Plan (Free Text) Plan: cont meds cont tx discussed with Dr Quijano can change dessing today start on Doxycycline
[2017-05-28] MEDS: Lactated Ringer's 1,000 ML IV SCH (18:09)
[2017-05-28] MEDS: Docusate-Senna 50 mg-8.6 mg Tab PO SCH (21:44)
[2017-05-29 06:15] LABS: BASO # 0.1 K/uL (0.0-0.2); BASO % 0.6 % (0.0-2.0); EOS # 0.5 K/uL (0.0-0.7); EOS % 5.2 % (0.0-4.0); HEMATOCRIT 25.7 % (34.0-47.0); LYMPH # 1.4 K/uL (1.0-4.3); LYMPH % 15.6 % (20.0-40.0); MEAN CELL VOLUME 85.6 fl (81.0-99.0); MEAN CORPUSCULAR HEMOGLOBIN 26.9 pg (27.0-31.0); MEAN CORPUSCULAR HGB CONC 31.4 g/dL (33.0-37.0); MEAN PLATELET VOLUME 8.3 fl (7.2-11.7); MONO # 1.5 K/uL (0.0-0.8); MONO % 16.7 % (0.0-10.0); NEUT # 5.6 K/uL (1.8-7.0); NEUT % 61.9 % (50.0-75.0)
[2017-05-29 06:42] LABS: CALCIUM 9.1 mg/dL (8.4-10.2); POTASSIUM 4.5 MMOL/L (3.6-5.0)
[2017-05-29 08:05] VITALS: BP 134/72; PULSE 63; RESP 20; TEMP 98.3; O2SAT 97
[2017-05-29] MEDS: Potassium Chloride 20 mEq ER Tab PO SCH (08:25)
[2017-05-29] MEDS: Brimonidine 0.2% 50 DROP/5 ML BOTTLE OU SCH (08:26)
[2017-05-29] MEDS: Latanoprost 0.005% Opht SOUTION OU SCH (08:26)
[2017-05-29] MEDS: oxyCODONE 10 mg ER Tab (oxyCONTIN) PO SCH (08:27)
[2017-05-29] MEDS ORDERED: Pantoprazole 40 mg EC Tab PO SCH (09:00)
--- NOTE | 2017-05-29 10:28 | CP.PCM.PN ---
Subjective - Date & Time of Evaluation Date of Evaluation: 05/29/17 Time of Evaluation: 10:26 - Subjective Subjective: 66 y/o female seen at bedside for right lateral leg venous stasis ulceration. Patient has been ambulating with a walker for rehab for her left total knee replacement. Patient states the dressing has been coming off the right leg and that the alginate is causing burning in her ulcer. Patient states she will be discharged sometime today to [facility]. Patient denies F/C/N/V/SOB. Objective - Vital Signs/Intake and Output Vital Signs (last 24 hours): Temp Pulse Resp BP Pulse Ox 98.3 F 63 20 134/72 97 05/29/17 08:03 05/29/17 08:25 05/29/17 08:03 05/29/17 08:25 05/29/17 08:03 - Medications Medications: Current Medications Brimonidine Tartrate (Alphagan 0.2% Opht) 1 drop OU DAILY [facility] Last Admin: 05/29/17 08:26 Dose: 1 drop Celecoxib (Celebrex) 200 mg PO Q12 [facility] Last Admin: 05/29/17 08:26 Dose: 200 mg Diphenhydramine HCl (Benadryl) 25 mg PO Q6 PRN PRN Reason: Itching / Pruritus Last Admin: 05/29/17 04:28 Dose: 25 mg Doxycycline Hyclate (Doryx) 100 mg PO Q12@0500,1700 [facility] Last Admin: 05/29/17 04:29 Dose: 100 mg Enoxaparin Sodium (Lovenox) 30 mg SC Q12H [facility] PRN Reason: Protocol Last Admin: 05/28/17 21:44 Dose: 30 mg Furosemide (Lasix) 40 mg PO DAILY [facility] Last Admin: 05/29/17 08:25 Dose: 40 mg Gabapentin (Neurontin) 300 mg PO TID [facility] Last Admin: 05/29/17 08:28 Dose: 300 mg Ketorolac Tromethamine (Toradol) 15 mg IVP Q8 [facility] Last Admin: 05/29/17 08:27 Dose: 15 mg Latanoprost (Xalatan Opht) 1 drop OU DAILY [facility] Last Admin: 05/29/17 08:26 Dose: 1 drop Losartan Potassium (Cozaar) 100 mg PO DAILY [facility] Last Admin: 05/29/17 08:25 Dose: 100 mg Oxycodone HCl (Oxycontin Extended Release Tab) 10 mg PO Q12 [facility] Stop: 06/09/17 21:01 Last Admin: 05/29/17 08:27 Dose: Not Given Pantoprazole Sodium (Protonix Ec Tab) 40 mg PO DAILY [facility] Potassium Chloride (K-Dur 20 Meq Er Tab) 20 meq PO DAILY [facility] Last Admin: 05/29/17 08:25 Dose: 20 meq Senna/Docusate Sodium (Senokot S 50 Mg-8.6 Mg) 2 tab PO HS [facility] Last Admin: 05/28/17 21:44 Dose: 2 tab Tramadol HCl (Ultram) 50 mg PO Q4 PRN PRN Reason: pain4-6 Last Admin: 05/27/17 18:47 Dose: 50 mg Zolpidem Tartrate (Ambien) 5 mg PO HS PRN PRN Reason: Insomnia Last Admin: 05/28/17 00:25 Dose: 5 mg - Labs Labs: 05/29/17 06:05 05/29/17 06:05 - Constitutional Appears: Well, Non-toxic, No Acute Distress - Extremities Exam Additional comments: RLE focused exam Vasc: DP/PT pulses palpable 1/4. Temperature gradient warm to warm. CFT < 3 seconds to all digits. Pitting edema noted Neuro: Protective sensation grossly intact B/L Derm: Venous stasis ulceration noted to right lateral leg measuring roughly 5 cm x 3.5 cm x 0.1 cm. Wound base is 90%granular and 10% fibrotic. Mild serous Otherwise no open lesions, wounds, maceration, xerosis, abnormal pigmentation or abnormal growths noted at this time MSK: tenderness to palpation to ulcer site - Neurological Exam Neurological Exam: Alert, Awake, Oriented x3 - Psychiatric Exam Psychiatric exam: Normal Affect, Normal Mood Assessment and Plan - Assessment and Plan (Free Text) Assessment: 66 year old female seen bedside for right leg venous stasis ulcer Plan: Patient seen and evaluated Plan discussed with Dr. Schaffer Right leg ulcer dressed with Telnunu, inocencia and Carrera compressive dressing of webril and BRIAN bandages Patient to be D/C later today and will follow up as outpatient with Dr. Schaffer in wound care clinic
[2017-05-29] MEDS: Enoxaparin 30 mg Syringe SC SCH (10:47)
--- NOTE | 2017-05-29 14:03 | CP.PCM.PCO ---
Assessment/Plan - Assessment/Plan Assessment (Free Text): Pt stable, ambulating in room without distress. Pt seen and cleared for d/c to [facility] by Dr. Carmona and Dr. Rivera. Discussed with Dr. Rivera, Hgb 8.1, pt is asymptomatic. Okay per Dr. Rivera to transfer to [facility]. Hgb to be monitored in rehab. SW and RN made aware to endorse to receiving facility. - Problems Patient Problems: Problem List (Active/Current) Problem Status Onset Code Total knee replacement status Acute Z96.659
--- NOTE | 2017-05-29 15:38 | CP.PCM.DIS ---
Provider - Provider Date of Admission: 05/26/17 12:30 Attending physician: Yfn Carmona MD Primary care physician: Diya Mabry MD Time Spent in preparation of Discharge (in minutes): 35 Diagnosis - Discharge Diagnosis (1) Chronic knee pain Status: Chronic Comment: s/p left total knee replacement (2) Arthritis Status: Chronic (3) Hypertension Status: Chronic Hospital Course - Lab Results Lab Results: Most Recent Lab Values WBC 9.0 K/uL (4.8-10.8) 05/29/17 06:05 RBC 3.00 Mil/uL (3.80-5.20) L 05/29/17 06:05 Hgb 8.1 g/dL (12.0-16.0) L 05/29/17 06:05 Hct 25.7 % (34.0-47.0) L 05/29/17 06:05 MCV 85.6 fl (81.0-99.0) 05/29/17 06:05 MCH 26.9 pg (27.0-31.0) L 05/29/17 06:05 MCHC 31.4 g/dL (33.0-37.0) L 05/29/17 06:05 RDW 17.0 % (11.5-14.5) H 05/29/17 06:05 Plt Count 167 K/uL (130-400) 05/29/17 06:05 MPV 8.3 fl (7.2-11.7) 05/29/17 06:05 Neut % (Auto) 61.9 % (50.0-75.0) 05/29/17 06:05 Lymph % (Auto) 15.6 % (20.0-40.0) L 05/29/17 06:05 [place] % (Auto) 16.7 % (0.0-10.0) H 05/29/17 06:05 Eos % (Auto) 5.2 % (0.0-4.0) H 05/29/17 06:05 Baso % (Auto) 0.6 % (0.0-2.0) 05/29/17 06:05 Neut # 5.6 K/uL (1.8-7.0) 05/29/17 06:05 Lymph # 1.4 K/uL (1.0-4.3) 05/29/17 06:05 [place] # 1.5 K/uL (0.0-0.8) H 05/29/17 06:05 Eos # 0.5 K/uL (0.0-0.7) 05/29/17 06:05 Baso # 0.1 K/uL (0.0-0.2) 05/29/17 06:05 Sodium 136 mmol/l (132-148) 05/29/17 06:05 Potassium 4.5 MMOL/L (3.6-5.0) 05/29/17 06:05 Chloride 101 mmol/L (98-107) 05/29/17 06:05 Carbon Dioxide 27 mmol/L (22-30) 05/29/17 06:05 Anion Gap 13 (10-20) 05/29/17 06:05 BUN 19 mg/dl (7-17) H 05/29/17 06:05 Creatinine 1.3 mg/dL (0.7-1.2) H 05/29/17 06:05 Est GFR ( Amer) 50 05/29/17 06:05 Est GFR (Non-Af Amer) 41 05/29/17 06:05 Random Glucose 98 mg/dL (65-105) 05/29/17 06:05 Calcium 9.1 mg/dL (8.4-10.2) 05/29/17 06:05 Blood Type A POSITIVE 05/26/17 07:34 Antibody Screen Negative 05/26/17 07:34 BBK History Checked Patient has bt 05/26/17 07:34 - Hospital Course Hospital Course: Patient seen and examined with attending. 66 year old female with PMHx of HTN, PVD, DVT, glaucoma s/p left total knee replacement. Doing well post operatively, pain is controlled. Wound is clean, dry and intact, no drainage no erythema, induration. Patient feels well. D/c to [facility]: [facility]. - Date & Time of H&P Date of H&P: 05/27/17 Time of H&P: 09:10 Discharge Exam - Head Exam Head Exam: NORMAL INSPECTION - Eye Exam Eye Exam: EOMI, Normal appearance, PERRL - Respiratory Exam Respiratory Exam: NORMAL BREATHING PATTERN, UNREMARKABLE - Cardiovascular Exam Cardiovascular Exam: REGULAR RHYTHM, +S1, +S2. absent: Tachycardia - GI/Abdominal Exam GI & Abdominal Exam: Unremarkable - Extremities Exam Additional comments: left anterior knee: incision : dayami in place, no erythema/drainage/ induration. clean and dry - Neurological Exam Neurological exam: Alert, CN II-XII Intact, Oriented x3 - Psychiatric Exam Psychiatric exam: Normal Affect, Normal Mood - Skin Skin Exam: Dry, Intact Discharge Plan - Discharge Medications Prescriptions: Ferrous Sulfate [Feosol] 325 mg PO BID #30 tab - Follow Up Plan Condition: GOOD Disposition: REHAB FACILITY/REHAB UNIT Instructions: Precautions after Total Joint Replacement Surgery (DC), Knee Replacement (DC) Referrals: Diya Mabry MD [Primary Care Provider] -
== END 2017-05-29 14:56 | DRG 470 ==
LOC: H.OPSURG 06:16 → H.MEDSURG1 12:30
PROVIDERS: ADMIT Family Medicine; ATTEND Family Medicine
PROC: 0SRD0J9 Replacement of Left Knee Joint with Synthetic Substitute, Cemented, Open Approach (ICD-10-PCS; principal; 2017-05-26 08:45)
DX: M17.12 Unilateral primary osteoarthritis, left knee (principal); L97.919 Non-pressure chronic ulcer of unspecified part of right lower leg with unspecified severity; I10 Essential (primary) hypertension; G89.29 Other chronic pain; H40.9 Unspecified glaucoma; M06.9 Rheumatoid arthritis, unspecified; Z96.651 Presence of right artificial knee joint; I83.019 Varicose veins of right lower extremity with ulcer of unspecified site; I73.9 Peripheral vascular disease, unspecified

== ENCOUNTER 2017-10-29 14:30 | Inpatient (IN) | payer MEDICARE, SELFPAY ==
[2017-10-29 14:30] VITALS: BMI 40.3
--- NOTE | 2017-10-29 15:19 | ED PDOC ---
Arrival/HPI - General Chief Complaint: Hip Pain Time Seen by Provider: 10/29/17 14:41 Past Medical History - Cardiac Hx Hypertension: Yes - Pulmonary Hx Respiratory Disorders: No - Neurological Hx Neurological Disorder: No - HEENT Hx HEENT Disorder: No - Renal Hx Renal Disorder: No - Endocrine/Metabolic Hx Endocrine Disorders: No - Hematological/Oncological Hx Blood Disorders: No Other/Comment: R ankle blood clots 2013 - Integumentary Hx Dermatological Disorder: Yes Hx Cellulitis: Yes Other/Comment: WOUND ULCER R leg - Musculoskeletal/Rheumatological Hx Arthritis: Yes - Gastrointestinal Hx Gastrointestinal Disorders: No - Genitourinary/Gynecological Hx Genitourinary Disorders: No - Psychiatric Hx Psychophysiologic Disorder: No Hx Emotional Abuse: No Hx Physical Abuse: No Hx Substance Use: No - Surgical History Hx Joint Replacement: Yes (TOTAL RIGHT KNEE REPLACEMENT 2010) Hx Orthopedic Surgery: Yes (left knee replaced) Other/Comment: SX FOR BLOOD CLOTS RT ANKLE - Anesthesia Hx Anesthesia: Yes Hx Anesthesia Reactions: No Hx Malignant Hyperthermia: No - Suicidal Assessment Feels Threatened In Home Enviroment: No Family/Social History Smoking Status: Never Smoked Hx Alcohol Use: No Hx Substance Use: No Allergies/Home Meds Allergies/Adverse Reactions: Allergies amoxicillin Allergy (Verified 08/18/17 14:42) RASH Penicillins Allergy (Verified 08/18/17 14:42) RASH shellfish derived Allergy (Verified 08/18/17 14:42) PAIN Sulfa (Sulfonamide Antibiotics) Allergy (Verified 08/18/17 14:42) RASH Home Medications: Home Meds Medication Instructions Recorded Confirmed Furosemide [Lasix] 40 mg PO DAILY 12/05/15 09/29/17 Gabapentin [Neurontin] 300 mg PO TID 12/05/15 09/29/17 Zolpidem [Ambien] 10 mg PO HS PRN 01/16/16 09/29/17 Losartan [Cozaar] 100 mg PO DAILY 02/01/16 09/29/17 Multivit with Calcium,Iron,Min 1 tab PO DAILY 02/01/16 09/29/17 [One Daily Women's] Potassium Chloride [Klor-Con 10] 20 meq PO DAILY 02/01/16 09/29/17 Brimonidine 0.2% [Alphagan 0.2% 1 drop OU DAILY 05/26/17 09/29/17 Opht] Latanoprost 0.005% Opht [Xalatan 1 drop OU DAILY 05/26/17 09/29/17 Opht] Physical Exam Vital Signs Temp Pulse Resp BP Pulse Ox 10/29/17 14:31 97 F L 91 H 18 140/76 99 Medical Decision Making - RAD Interpretation Radiology Orders: 10/29/17 15:18 HIP MIN 2V W/ PELVIS LT [RAD] Stat 10/29/17 15:19 KNEE 3 VIEWS LT [RAD] Stat Disposition/Present on Arrival - Present on Arrival History of DVT/PE: Yes History of Uncontrolled Diabetes: No Urinary Catheter: No History Surgical Site Infection Following: None - Disposition
--- NOTE | 2017-10-29 15:39 | ED PDOC ---
Arrival/HPI <Sultan James - Last Filed: 10/29/17 17:09> <Bubba Rice - Last Filed: 10/29/17 17:48> - General Chief Complaint: Hip Pain Time Seen by Provider: 10/29/17 14:41 - History of Present Illness Narrative History of Present Illness (Text): 10/29/17 15:33 67 yo female pmhx HTN, PVD, DVT in 2012, glaucoma and B/L total knee replacement , most recent left total knee replacement on 04/2017 presents to ED w/ complaints of left hip pain (05/07) after a fall and landed on left hip about 2 hours ago. Pt reports she was walking from the bathroom towards the living room but her cat was on her way so lost the balance and fell. Pt is unable to bear weight on left leg. Denies any dizziness, blurry vision, chest pain or dyspnea prior to fall. Denies any head injury or LOC. Denies being on any blood thinner. Pt reports she was on blood thinner in 2012 for 6 months. Pt goes to PT 2x/week for left knee. Left knee replacement surgery was performed by Dr. Rivera. Pt follows up with podiatry Dr. York 2x/week ( q Tuesdays and Fridays) 10/29/17 15:39 10/29/17 16:04 ([place]) Past Medical History - Cardiac Hx Hypertension: Yes - Pulmonary Hx Respiratory Disorders: No - Neurological Hx Neurological Disorder: No - HEENT Hx HEENT Disorder: No - Renal Hx Renal Disorder: No - Endocrine/Metabolic Hx Endocrine Disorders: No - Hematological/Oncological Hx Blood Disorders: No Other/Comment: R ankle blood clots 2012 - Integumentary Hx Dermatological Disorder: Yes Hx Cellulitis: Yes Other/Comment: WOUND ULCER R leg - Musculoskeletal/Rheumatological Hx Arthritis: Yes - Gastrointestinal Hx Gastrointestinal Disorders: No - Genitourinary/Gynecological Hx Genitourinary Disorders: No - Psychiatric Hx Psychophysiologic Disorder: No Hx Emotional Abuse: No Hx Physical Abuse: No Hx Substance Use: No - Surgical History Hx Joint Replacement: Yes (TOTAL RIGHT KNEE REPLACEMENT 2010) Hx Orthopedic Surgery: Yes (left knee replaced) Other/Comment: SX FOR BLOOD CLOTS RT ANKLE - Anesthesia Hx Anesthesia: Yes Hx Anesthesia Reactions: No Hx Malignant Hyperthermia: No - Suicidal Assessment Feels Threatened In Home Enviroment: No <Sultan James - Last Filed: 10/29/17 17:09> Family/Social History Smoking Status: Never Smoked Hx Alcohol Use: No Hx Substance Use: No <Sultan James - Last Filed: 10/29/17 17:09> Family/Social History: No Known Family HX <Bubba Rice - Last Filed: 10/29/17 17:48> Allergies/Home Meds <Bernadette Ramireztan - Last Filed: 10/29/17 17:09> <Srikanth Riceo Jael - Last Filed: 10/29/17 17:48> Allergies/Adverse Reactions: Allergies amoxicillin Allergy (Verified 08/18/17 14:42) RASH Penicillins Allergy (Verified 08/18/17 14:42) RASH shellfish derived Allergy (Verified 08/18/17 14:42) PAIN Sulfa (Sulfonamide Antibiotics) Allergy (Verified 08/18/17 14:42) RASH Home Medications: Home Meds Medication Instructions Recorded Confirmed Furosemide [Lasix] 40 mg PO DAILY 12/05/15 10/29/17 Gabapentin [Neurontin] 300 mg PO TID 12/05/15 10/29/17 Zolpidem [Ambien] 10 mg PO HS PRN 01/16/16 10/29/17 Losartan [Cozaar] 100 mg PO DAILY 02/01/16 10/29/17 Multivit with Calcium,Iron,Min 1 tab PO DAILY 02/01/16 10/29/17 [One Daily Women's] Brimonidine 0.2% [Alphagan 0.2% 1 drop OU DAILY 05/26/17 10/29/17 Opht] Latanoprost 0.005% Opht [Xalatan 1 drop OU DAILY 05/26/17 10/29/17 Opht] Pravastatin Sodium [Pravachol] 40 mg PO DAILY 10/29/17 10/29/17 Review of Systems - Review of Systems Constitutional: absent: Fevers Eyes: absent: Vision Changes Respiratory: absent: SOB, Cough Cardiovascular: absent: Chest Pain, Palpitations Gastrointestinal: absent: Abdominal Pain, Nausea, Vomiting Neurological: absent: Headache, Dizziness <Sultan James - Last Filed: 10/29/17 17:09> Physical Exam - Systems Exam Head: Present: Atraumatic, Normocephalic Neck: Present: Normal Range of Motion Respiratory/Chest: Present: Clear to Auscultation, Good Air Exchange Cardiovascular: Present: Regular Rate and Rhythm, Normal S1, S2 Abdomen: Present: Normal Bowel Sounds. No: Tenderness, Distention Lower Extremity: Present: Other (Left extremity is slightly shorter than right extremity when pt is lying on bed. Left extremity has mild external rotation. Pain with deep palpation of left thigh. Right lower extremity upto knee is covered with andrew wrap and dressing. Dressing looks C/D/I.) Neurological: Present: Speech Normal <Sultan James - Last Filed: 10/29/17 17:09> Vital Signs Temp Pulse Resp BP Pulse Ox 10/29/17 14:31 97 F L 91 H 18 140/76 99 Medical Decision Making <Sultan James - Last Filed: 10/29/17 17:09> - Critical Care Critical Care Minutes: 30 minutes <Bubba Rice - Last Filed: 10/29/17 17:48> ED Course and Treatment: 10/29/17 15:47 67 yo female pmhx B/L knee replacement presents to ED c/o left hip pain s/p fall this afternoon. Plan: Toradol 15 mg IVP Left hip x-ray Left knee x-ray Preop labs 10/29/17 17:09 (Sultan James) 10/29/17 17:36 67 you female presents with left hip pain s/p mechanical fall. Agree with resident note. Left Hip with tenderness and decrease ROM +2 pulse distal pedal Short left leg with external rotation Left Hip Xray IMPRESSION: Acute left transcervical femoral neck fracture with superior migration of the distal fracture segment. Case discussed with Dr. Munoz who admits for Dr. Jose Rogers. Placed a call to Dr. Rivera who is being covered by Dr. Castaneda. Pending call back from HUY Warren. 10/29/17 17:45 EKG: NSR at [address] elevations, nl intervals 10/29/17 17:47 Case discussed with HUY Warren who evaluated patient. No further recommendations at this time. (Bubba Rice) - Lab Interpretations Lab Results: 10/29/17 16:08 10/29/17 16:08 Lab Results 10/29/17 16:08: PT 11.9, INR 1.1, APTT 29.6 10/29/17 16:08: WBC 9.3, RBC 3.63 L, Hgb 8.4 L, Hct 27.9 L, MCV 76.9 L D, MCH 23.1 L, MCHC 30.0 L, RDW 18.3 H, Plt Count 242 10/29/17 16:08: Sodium 140, Potassium 4.5, Chloride 105, Carbon Dioxide 24, Anion Gap 16, BUN 17, Creatinine 1.2, Est GFR ( Amer) 55, Est GFR (Non- Af Amer) 45, Random Glucose 92, Calcium 8.9 - RAD Interpretation Radiology Orders: 10/29/17 15:18 HIP MIN 2V W/ PELVIS LT [RAD] Stat 10/29/17 15:19 KNEE 3 VIEWS LT [RAD] Stat 10/29/17 16:06 CHEST PORTABLE [RAD] Stat - Medication Orders Current Medication Orders: Discontinued Medications Ketorolac Tromethamine (Toradol) 15 mg IVP ONCE ONE Stop: 10/29/17 15:19 Last Admin: 10/29/17 15:45 Dose: 15 mg MAR Pain Assessment Document 10/29/17 15:45 HPB (Rec: 10/29/17 15:45 HPB [id number]) Pain Reassessment Is this a pain reassessment? No Sleep Is patient sleeping during reassessment? No Presence of Pain Presence of Pain Yes IVP Administration Document 10/29/17 15:45 HPB (Rec: 10/29/17 15:45 HPB [id number]) Charges for Administration # of IVP Administrations 1 Disposition/Present on Arrival - Present on Arrival History of DVT/PE: Yes History of Uncontrolled Diabetes: No Urinary Catheter: No History Surgical Site Infection Following: None <Sultan James - Last Filed: 10/29/17 17:09> - Present on Arrival Any Indicators Present on Arrival: Yes History of DVT/PE: Yes - Disposition Have Diagnosis and Disposition been Completed?: Yes Disposition Time: 16:40 Patient Plan: Admission <Bubba Rice - Last Filed: 10/29/17 17:48> - Disposition Diagnosis: Hip fracture, left Disposition: HOSPITALIZED Condition: GUARDED Forms: [email or web address] (Maltese)
--- NOTE | 2017-10-29 16:17 | RAD ---
PROCEDURE: Left Hip X-ray Radiographs. HISTORY: left hip pain s/p fall r/o fx COMPARISON: None. FINDINGS: BONES: Acute left transcervical femoral neck fracture with superior migration of the distal fracture segment. JOINTS: Bilateral hip narrowed. SOFT TISSUES: Normal. OTHER FINDINGS: Calcified uterine fibroids. IMPRESSION: Acute left transcervical femoral neck fracture with superior migration of the distal fracture segment.
--- NOTE | 2017-10-29 16:19 | RAD ---
PROCEDURE: Left Knee Radiographs. HISTORY: Pain. COMPARISON: Left knee radiographs dated 05/26/2017. FINDINGS: There has been prior total left knee arthroplasty. Prosthetic components remain in good alignment. No periprosthetic lucency is seen to suggest component loosening or fracture. IMPRESSION: Status post total left knee arthroplasty. No appreciable fracture or evidence of component loosening.
[2017-10-29 16:34] LABS: HEMOGLOBIN 8.4 g/dL (12.0-16.0); MEAN CELL VOLUME 76.9 fl (81.0-99.0); MEAN CORPUSCULAR HEMOGLOBIN 23.1 pg (27.0-31.0); RBC 3.63 Mil/uL (3.80-5.20); RED CELL DISTRIBUTION WIDTH 18.3 % (11.5-14.5); WHITE BLOOD COUNT 9.3 K/uL (4.8-10.8)
[2017-10-29 16:44] LABS: CALCIUM 8.9 mg/dL (8.4-10.2)
[2017-10-29 16:53] LABS: INR 1.1 (0.9-1.2); PROTHROMBIN TIME 11.9 Seconds (9.8-13.1)
--- NOTE | 2017-10-29 17:12 | RAD ---
HISTORY: Preop. COMPARISON: 09/07/2016 FINDINGS: LUNGS: No active pulmonary disease. PLEURA: No significant pleural effusion identified, no pneumothorax apparent. CARDIOVASCULAR: No radiographic findings to suggest acute or significant cardiovascular disease. Venous access catheter in stable, satisfactory position. OSSEOUS STRUCTURES: No significant abnormalities. VISUALIZED UPPER ABDOMEN: Normal. OTHER FINDINGS: None. IMPRESSION: No active disease. No significant interval change compared to the prior examination(s).
[2017-10-29 17:18] LABS: PARTIAL THROMBOPLASTIN TIME 29.6 Seconds (25.6-37.1)
--- NOTE | 2017-10-29 18:55 | CP.PCM.CON ---
History of Present Illness - History of Present Illness History of Present Illness: 67 yo F with pmhx of htn, PVD, DVT, glaucoma, OA, with previous b/l TKR presents to ED c/o left hip pain and limited range of motion after a mechanical fall at home. Pt recently had LTKR by Dr. Rivera on 05/26/17. Pt was recovering well from TKR. She states she fell at home and landed on her left lower extremity. She was unable to bear weight after the fall. Pt denies any head trauma or LOC. She denies previous injury or trauma to left hip. SHe denies any chest pain, SOB, N/V, or paresthesia or numbness to LLE. Xrays of left hip reveal left hip fx. Orthopaedics consulted for further evaluation and tx of left hip fx. Review of Systems - Musculoskeletal Musculoskeletal: As Per HPI Past Patient History - Past Medical History & Family History Past Medical History?: Yes - Past Social History Smoking Status: Never Smoked - CARDIAC Hx Hypertension: Yes - PULMONARY Hx Respiratory Disorders: No - NEUROLOGICAL Hx Neurological Disorder: No - HEENT Hx HEENT Problems: No - RENAL Hx Chronic Kidney Disease: No - ENDOCRINE/METABOLIC Hx Endocrine Disorders: No - HEMATOLOGICAL/ONCOLOGICAL Hx Blood Disorders: No Other/Comment: R ankle blood clots 2012 - INTEGUMENTARY Hx Dermatological Problems: Yes Hx Cellulitis: Yes Other/Comment: WOUND ULCER R leg - MUSCULOSKELETAL/RHEUMATOLOGICAL Hx Arthritis: Yes - GASTROINTESTINAL Hx Gastrointestinal Disorders: No - GENITOURINARY/GYNECOLOGICAL Hx Genitourinary Disorders: No - PSYCHIATRIC Hx Psychophysiologic Disorder: No Hx Emotional Abuse: No Hx Physical Abuse: No Hx Substance Use: No - SURGICAL HISTORY Hx Joint Replacement: Yes (TOTAL RIGHT KNEE REPLACEMENT 2010) Hx Orthopedic Surgery: Yes (left knee replaced) Other/Comment: SX FOR BLOOD CLOTS RT ANKLE - ANESTHESIA Hx Anesthesia: Yes Hx Anesthesia Reactions: No Hx Malignant Hyperthermia: No Meds Allergies/Adverse Reactions: Allergies Allergy/AdvReac Type Severity Reaction Status Date / Time amoxicillin Allergy RASH Verified 08/18/17 14:42 Penicillins Allergy RASH Verified 08/18/17 14:42 shellfish derived Allergy PAIN Verified 08/18/17 14:42 Sulfa (Sulfonamide Allergy RASH Verified 08/18/17 14:42 Antibiotics) Physical Exam - Constitutional Appears: Well, No Acute Distress - Respiratory Exam Respiratory Exam: Clear to Auscultation Bilateral, NORMAL BREATHING PATTERN - Cardiovascular Exam Cardiovascular Exam: REGULAR RHYTHM, RRR - Extremities Exam Additional comments: Left hip: +ttp at proximal femur left leg shortened and externally rotated ROM limited due to pain Calves soft and nontender b/l N/V intact distally Distal pulses wnl Results - Vital Signs Recent Vital Signs: Last Vital Signs Temp 98 F 10/29/17 18:01 Pulse 80 10/29/17 18:01 Resp 17 10/29/17 18:01 BP 136/80 10/29/17 18:01 Pulse Ox 98 10/29/17 18:01 - Labs Result Diagrams: 10/29/17 16:08 10/29/17 16:08 Labs: Laboratory Results - last 24 hr 10/29/17 10/29/17 10/29/17 16:08 16:08 16:08 WBC 9.3 RBC 3.63 L Hgb 8.4 L Hct 27.9 L MCV 76.9 L D MCH 23.1 L MCHC 30.0 L RDW 18.3 H Plt Count 242 PT 11.9 INR 1.1 APTT 29.6 Sodium 140 Potassium 4.5 Chloride 105 Carbon Dioxide 24 Anion Gap 16 BUN 17 Creatinine 1.2 Est GFR ( Amer) 55 Est GFR (Non-Af Amer) 45 Random Glucose 92 Calcium 8.9 Blood Type Antibody Screen BBK History Checked 10/29/17 16:08 WBC RBC Hgb Hct MCV MCH MCHC RDW Plt Count PT INR APTT Sodium Potassium Chloride Carbon Dioxide Anion Gap BUN Creatinine Est GFR ( Amer) Est GFR (Non-Af Amer) Random Glucose Calcium Blood Type A POSITIVE Antibody Screen Negative BBK History Checked Patient has bt Assessment & Plan - Assessment and Plan (Free Text) Assessment: 67 yo F with pmhx of htn, PVD, DVT, b/l TKR presents with left hip femoral neck fx Plan: Xrays of left hip reviewed xrays reveal left hip displaced transcervical femoral neck fx Pt had previous L TKR by Dr. Rivera in 04/2017 Pt will require surgical fixation of left hip fx pending medical clearance Consult carbon printer orthopaedist for further eval and tx, as Dr. Rivera is currently away Pain Control DVT ppx F/U labs
[2017-10-29] MEDS ORDERED: Patient's Own Med (Zolpidem [Ambien] 10 MG) PO PRN (23:13)
[2017-10-30 06:29] LABS: HEMOGLOBIN 7.9 g/dL (12.0-16.0); MEAN CELL VOLUME 75.9 fl (81.0-99.0); MEAN CORPUSCULAR HEMOGLOBIN 23.7 pg (27.0-31.0); MEAN CORPUSCULAR HGB CONC 31.2 g/dL (33.0-37.0); RBC 3.32 Mil/uL (3.80-5.20); RED CELL DISTRIBUTION WIDTH 18.1 % (11.5-14.5); WHITE BLOOD COUNT 6.8 K/uL (4.8-10.8)
[2017-10-30 06:36] LABS: CALCIUM 8.5 mg/dL (8.4-10.2)
--- NOTE | 2017-10-30 08:33 | CP.PCM.CON ---
History of Present Illness - History of Present Illness History of Present Illness: ID: 67 yo female CC: pain and restricted ROM L hip HPI: 67 yo female presents with pain andrestricted ROM Lhip. Pt had sustained fall at home presents to ER admiteed with displaced subcapital hip FX with evidence for preexisting O/A Past Patient History - Past Medical History & Family History Past Medical History?: Yes - Past Social History Smoking Status: Never Smoked - CARDIAC Hx Hypertension: Yes Other/Comment: s/p L TKR - PULMONARY Hx Respiratory Disorders: No - NEUROLOGICAL Hx Neurological Disorder: No - HEENT Hx HEENT Problems: No - RENAL Hx Chronic Kidney Disease: No - ENDOCRINE/METABOLIC Hx Endocrine Disorders: No - HEMATOLOGICAL/ONCOLOGICAL Hx Blood Disorders: No Other/Comment: R ankle blood clots 2013 - INTEGUMENTARY Hx Dermatological Problems: Yes Hx Cellulitis: Yes Other/Comment: WOUND ULCER R leg - MUSCULOSKELETAL/RHEUMATOLOGICAL Hx Arthritis: Yes Hx Falls: Yes - GASTROINTESTINAL Hx Gastrointestinal Disorders: No - GENITOURINARY/GYNECOLOGICAL Hx Genitourinary Disorders: No - PSYCHIATRIC Hx Psychophysiologic Disorder: No Hx Emotional Abuse: No Hx Physical Abuse: No Hx Substance Use: No - SURGICAL HISTORY Hx Joint Replacement: Yes (TOTAL RIGHT KNEE REPLACEMENT 2010) Hx Orthopedic Surgery: Yes (left knee replaced) Other/Comment: SX FOR BLOOD CLOTS RT ANKLE - ANESTHESIA Hx Anesthesia: Yes Hx Anesthesia Reactions: No Hx Malignant Hyperthermia: No Meds Allergies/Adverse Reactions: Allergies Allergy/AdvReac Type Severity Reaction Status Date / Time amoxicillin Allergy RASH Verified 08/18/17 14:42 Penicillins Allergy RASH Verified 08/18/17 14:42 shellfish derived Allergy PAIN Verified 08/18/17 14:42 Sulfa (Sulfonamide Allergy RASH Verified 08/18/17 14:42 Antibiotics) - Medications Medications: Current Medications Brimonidine Tartrate (Alphagan 0.2% Opht) 1 drop OU DAILY [facility] Furosemide (Lasix) 40 mg PO DAILY [facility] Gabapentin (Neurontin) 300 mg PO TID [facility] Hydromorphone HCl (Dilaudid) 0.5 mg IVP Q4 PRN PRN Reason: Pain, moderate (4-7) Stop: 10/31/17 23:12 Last Admin: 10/30/17 08:08 Dose: 0.5 mg Latanoprost (Xalatan Opht) 1 drop OU DAILY [facility] Losartan Potassium (Cozaar) 100 mg PO DAILY [facility] Multivitamins/Minerals (Therapeutic-M Tab) 1 tab PO DAILY [facility] Pantoprazole Sodium (Protonix Ec Tab) 40 mg PO DAILY [facility] Pravastatin Sodium (Pravachol) 40 mg PO DAILY [facility] Zolpidem Tartrate (Ambien) 5 mg PO HS PRN PRN Reason: Insomnia Last Admin: 10/29/17 23:38 Dose: 5 mg Physical Exam - Additional Findings Additional findings: Musculoskekltal: stance/.gait- defrred ROM L: hip rerstricted N/V intact s/p recent TKR Results - Vital Signs Recent Vital Signs: Last Vital Signs Temp 97.9 F 10/29/17 23:51 Pulse 87 10/29/17 23:51 Resp 19 10/29/17 23:51 BP 153/80 H 10/29/17 23:51 Pulse Ox 99 10/29/17 23:51 - Labs Result Diagrams: 10/30/17 05:50 10/30/17 05:50 Labs: Laboratory Results - last 24 hr 10/29/17 10/29/17 10/29/17 16:08 16:08 16:08 WBC 9.3 RBC 3.63 L Hgb 8.4 L Hct 27.9 L MCV 76.9 L D MCH 23.1 L MCHC 30.0 L RDW 18.3 H Plt Count 242 PT 11.9 INR 1.1 APTT 29.6 Sodium 140 Potassium 4.5 Chloride 105 Carbon Dioxide 24 Anion Gap 16 BUN 17 Creatinine 1.2 Est GFR ( Amer) 55 Est GFR (Non-Af Amer) 45 Random Glucose 92 Calcium 8.9 Total Bilirubin AST ALT Alkaline Phosphatase Total Protein Albumin Globulin Albumin/Globulin Ratio Triglycerides Cholesterol LDL Cholesterol Direct HDL Cholesterol Vitamin B12 Blood Type Antibody Screen Crossmatch BBK History Checked 10/29/17 10/30/17 10/30/17 16:08 05:50 05:50 WBC 6.8 RBC 3.32 L Hgb 7.9 L Hct 25.2 L MCV 75.9 L MCH 23.7 L MCHC 31.2 L RDW 18.1 H Plt Count 218 PT INR APTT Sodium 139 Potassium 4.5 Chloride 106 Carbon Dioxide 27 Anion Gap 11 BUN 15 Creatinine 1.2 Est GFR ( Amer) 55 Est GFR (Non-Af Amer) 45 Random Glucose 85 Calcium 8.5 Total Bilirubin 0.3 AST 23 ALT 26 Alkaline Phosphatase 80 Total Protein 6.2 L Albumin 3.0 L D Globulin 3.2 Albumin/Globulin Ratio 1.0 Triglycerides 67 D Cholesterol 117 LDL Cholesterol Direct 43 HDL Cholesterol 48 Vitamin B12 569 Blood Type A POSITIVE Antibody Screen Negative Crossmatch See Detail BBK History Checked Patient has bt - Impressions Impression: Xray- garden's 4 subcapital fx L hip, with preexisting O/a Assessment & Plan - Assessment and Plan (Free Text) Assessment: displacedsubcapital L femur fx with preexisting O/A P for THR when pt cleared by DR Munoz (Thursday)
[2017-10-30] MEDS ORDERED: MULTIVIT WITH CALCIUM IRON MIN PO SCH (09:00)
[2017-10-30 09:34] LABS: IRON 44 ug/dL (37-170)
[2017-10-30 09:44] LABS: % IRON SATURATION 9 % (20-55); TOTAL IRON BINDING CAPACITY 498 ug/dL (250-450)
--- NOTE | 2017-10-30 10:09 | CP.PCM.CON ---
History of Present Illness - History of Present Illness History of Present Illness: THE PATIENT IS A 67 YEAR OLD FEMALE WITH A HISTORY OF HYPERTENSION, HYPERLIPIDEMIA, RLE DVT, GLAUCOMA AND BILATERAL TKR. SHE NOW HAD A MECHANICAL FALL AND SUSTAINED A LEFT HIP FRACTURE AND WILL REQUIRE SURGERY. CARDIOLOGY WAS CALLED FOR PRE-OP CLEARANCE. SHE DENIES LOC, CHEST PAIN, SOB OR PALPITATIONS STATING THAT SHE WAS WALKING AND HER CAT GOT IN HER WAY AND SHE TRIPPED AND FELL AND THEN HAD LEFT HIP PAIN AND COULDN'T SUSTAIN HER WEIGHT. SHE STATES THAT ABOUT 5 YEARS AGO SHE HAD RLE DVT AND THE BLOOD CLOT WAS SURGICALLY REMOVED AND SHE WAS ON WARFARIN FOR 6 MOS. SHE DENIES CAD HISTORY OR CHEST PAIN. Past Patient History - Past Medical History & Family History Past Medical History?: Yes - Past Social History Smoking Status: Never Smoked - CARDIAC Hx Hypertension: Yes Other/Comment: s/p L TKR - PULMONARY Hx Respiratory Disorders: No - NEUROLOGICAL Hx Neurological Disorder: No - HEENT Hx HEENT Problems: No - RENAL Hx Chronic Kidney Disease: No - ENDOCRINE/METABOLIC Hx Endocrine Disorders: No - HEMATOLOGICAL/ONCOLOGICAL Hx Blood Disorders: No Other/Comment: R ankle blood clots 2013 - INTEGUMENTARY Hx Dermatological Problems: Yes Hx Cellulitis: Yes Other/Comment: WOUND ULCER R leg - MUSCULOSKELETAL/RHEUMATOLOGICAL Hx Arthritis: Yes Hx Falls: Yes - GASTROINTESTINAL Hx Gastrointestinal Disorders: No - GENITOURINARY/GYNECOLOGICAL Hx Genitourinary Disorders: No - PSYCHIATRIC Hx Psychophysiologic Disorder: No Hx Emotional Abuse: No Hx Physical Abuse: No Hx Substance Use: No - SURGICAL HISTORY Hx Joint Replacement: Yes (TOTAL RIGHT KNEE REPLACEMENT 2010) Hx Orthopedic Surgery: Yes (left knee replaced) Other/Comment: SX FOR BLOOD CLOTS RT ANKLE - ANESTHESIA Hx Anesthesia: Yes Hx Anesthesia Reactions: No Hx Malignant Hyperthermia: No Meds Allergies/Adverse Reactions: Allergies Allergy/AdvReac Type Severity Reaction Status Date / Time amoxicillin Allergy RASH Verified 08/18/17 14:42 Penicillins Allergy RASH Verified 08/18/17 14:42 shellfish derived Allergy PAIN Verified 08/18/17 14:42 Sulfa (Sulfonamide Allergy RASH Verified 08/18/17 14:42 Antibiotics) - Medications Medications: Current Medications Brimonidine Tartrate (Alphagan 0.2% Opht) 1 drop OU DAILY [facility] Furosemide (Lasix) 40 mg PO DAILY [facility] Gabapentin (Neurontin) 300 mg PO TID [facility] Hydromorphone HCl (Dilaudid) 0.5 mg IVP Q4 PRN PRN Reason: Pain, moderate (4-7) Stop: 10/31/17 23:12 Last Admin: 10/30/17 08:08 Dose: 0.5 mg Latanoprost (Xalatan Opht) 1 drop OU DAILY [facility] Losartan Potassium (Cozaar) 100 mg PO DAILY [facility] Multivitamins/Minerals (Therapeutic-M Tab) 1 tab PO DAILY [facility] Pantoprazole Sodium (Protonix Ec Tab) 40 mg PO DAILY [facility] Pravastatin Sodium (Pravachol) 40 mg PO DAILY [facility] Zolpidem Tartrate (Ambien) 5 mg PO HS PRN PRN Reason: Insomnia Last Admin: 10/29/17 23:38 Dose: 5 mg Physical Exam - Respiratory Exam Respiratory Exam: Clear to Auscultation Bilateral - Cardiovascular Exam Cardiovascular Exam: REGULAR RHYTHM, +S1, +S2 - Extremities Exam Additional comments: RLE BANDAGED DUE TO AN ULCER LLE WITHOUT EDEMA AND ISABELLE'S SIGN IS NEGATIVE - Additional Findings Additional findings: EKG NSR H/H TODAY IS 7.06/22 Results - Vital Signs Recent Vital Signs: Last Vital Signs Temp 98 F 10/30/17 08:33 Pulse 87 10/30/17 08:33 Resp 18 10/30/17 08:33 BP 139/73 10/30/17 08:33 Pulse Ox 97 10/30/17 08:33 - Labs Result Diagrams: 10/30/17 05:50 10/30/17 05:50 Labs: Laboratory Results - last 24 hr 10/29/17 10/29/17 10/29/17 16:08 16:08 16:08 WBC 9.3 RBC 3.63 L Hgb 8.4 L Hct 27.9 L MCV 76.9 L D MCH 23.1 L MCHC 30.0 L RDW 18.3 H Plt Count 242 PT 11.9 INR 1.1 APTT 29.6 Sodium 140 Potassium 4.5 Chloride 105 Carbon Dioxide 24 Anion Gap 16 BUN 17 Creatinine 1.2 Est GFR ( Amer) 55 Est GFR (Non-Af Amer) 45 Random Glucose 92 Calcium 8.9 Iron TIBC % Saturation Ferritin Total Bilirubin AST ALT Alkaline Phosphatase Total Protein Albumin Globulin Albumin/Globulin Ratio Triglycerides Cholesterol LDL Cholesterol Direct HDL Cholesterol Vitamin B12 Blood Type Antibody Screen Crossmatch BBK History Checked 10/29/17 10/30/17 10/30/17 16:08 05:50 05:50 WBC 6.8 RBC 3.32 L Hgb 7.9 L Hct 25.2 L MCV 75.9 L MCH 23.7 L MCHC 31.2 L RDW 18.1 H Plt Count 218 PT INR APTT Sodium 139 Potassium 4.5 Chloride 106 Carbon Dioxide 27 Anion Gap 11 BUN 15 Creatinine 1.2 Est GFR ( Amer) 55 Est GFR (Non-Af Amer) 45 Random Glucose 85 Calcium 8.5 Iron TIBC % Saturation Ferritin Total Bilirubin 0.3 AST 23 ALT 26 Alkaline Phosphatase 80 Total Protein 6.2 L Albumin 3.0 L D Globulin 3.2 Albumin/Globulin Ratio 1.0 Triglycerides 67 D Cholesterol 117 LDL Cholesterol Direct 43 HDL Cholesterol 48 Vitamin B12 569 Blood Type A POSITIVE Antibody Screen Negative Crossmatch See Detail BBK History Checked Patient has bt 10/30/17 10/30/17 09:00 09:00 WBC RBC Hgb Hct MCV MCH MCHC RDW Plt Count PT INR APTT Sodium Potassium Chloride Carbon Dioxide Anion Gap BUN Creatinine Est GFR ( Amer) Est GFR (Non-Af Amer) Random Glucose Calcium Iron 44 TIBC 498 H % Saturation 9 L Ferritin 14.0 Total Bilirubin AST ALT Alkaline Phosphatase Total Protein Albumin Globulin Albumin/Globulin Ratio Triglycerides Cholesterol LDL Cholesterol Direct HDL Cholesterol Vitamin B12 Blood Type Antibody Screen Crossmatch BBK History Checked Assessment & Plan - Assessment and Plan (Free Text) Assessment: FALL WITH LEFT HIP FRACTURE HYPERTENSION HYPERLIPIDEMIA BILATERAL KNEE REPLACEMENTS ANEMIA Plan: CONTINUE LOSARTAN AND PRAVASTATIN THE PATIENT WILL RECEIVE 2U RBCS DVT PROPHYLAXIS WITH LOVENOX TO BEGIN TOMORROW AFTER BLOOD TRANSFUSION THE PATIENT IS CLEARED FOR SURGERY
[2017-10-30] MEDS: Latanoprost 0.005% Opht SOUTION OU SCH (10:36)
[2017-10-30] MEDS: Pravastatin Sodium 40 MG TAB PO SCH (10:38)
[2017-10-30] MEDS: Pantoprazole 40 mg EC Tab PO SCH (10:39)
[2017-10-30] MEDS: Multivitamin With Minerals Tab PO SCH (10:39)
[2017-10-30] MEDS: Brimonidine 0.2% 50 DROP/5 ML BOTTLE OU SCH (10:56)
--- NOTE | 2017-10-30 11:23 | CARD ---
APPROVED REPORT EKG Measurement Heart [id number] <Conclusion> Normal sinus rhythm Normal ECG
--- NOTE | 2017-10-30 15:23 | RAD ---
PROCEDURE: Left Knee Radiographs. HISTORY: Posttraumatic pain. COMPARISON: None. FINDINGS: BONES: No acute fractures. No evidence of hardware loosening or failure. JOINTS: Expected findings following a left TKA JOINT EFFUSION: None. OTHER FINDINGS: None. IMPRESSION: No acute findings related to/accounting for the clinical presentation.
[2017-10-30 17:25] LABS: FOLATE > 20.0 ng/mL
[2017-10-30] MEDS: Enoxaparin 40 mg Syringe SC SCH (21:39)
[2017-10-31 07:01] LABS: MEAN CELL VOLUME 77.2 fl (81.0-99.0); MEAN CORPUSCULAR HEMOGLOBIN 24.4 pg (27.0-31.0); MEAN CORPUSCULAR HGB CONC 31.6 g/dL (33.0-37.0); RBC 4.51 Mil/uL (3.80-5.20); RED CELL DISTRIBUTION WIDTH 18.4 % (11.5-14.5); WHITE BLOOD COUNT 9.6 K/uL (4.8-10.8)
[2017-10-31 07:11] LABS: BLOOD UREA NITROGEN 14 mg/dl (7-17); GFR AFRICAN-AMERICAN > 60; GFR NON-AFRICAN AMERICAN 50
[2017-10-31] MEDS: Brimonidine 0.2% 50 DROP/5 ML BOTTLE OU SCH (08:46)
[2017-10-31] MEDS: Enoxaparin 40 mg Syringe SC SCH ×2 (08:50→09:00)
[2017-10-31] MEDS: Pantoprazole 40 mg EC Tab PO SCH (08:51)
[2017-10-31] MEDS: Pravastatin Sodium 40 MG TAB PO SCH (08:51)
[2017-10-31] MEDS: Multivitamin With Minerals Tab PO SCH (08:51)
[2017-10-31] MEDS: Latanoprost 0.005% Opht SOUTION OU SCH (08:52)
[2017-10-31] MEDS ORDERED: Docusate-Senna 50 mg-8.6 mg Tab PO ONE (09:00)
--- NOTE | 2017-10-31 15:08 | CP.PCM.CON ---
History of Present Illness - History of Present Illness History of Present Illness: 67 y/o female with PMHx of Arthritis, Diabetes, Deep Vein Thrombosis (left upper arm), HTN, Rheumatoid Arthritis seen at bedside for right lower leg ulceration. She was admitted about sustained a left hip fracture secondary to falling from stance on 10/29/17. She reports she felt dizziness and fell over. She is known to Dr. York. She sees Dr. York in wound care for continued treatment of her venous stasis ulceration to right LE. She reports that she has pain to the right LE and reports it as a burning pain. She reports that her wound is stable. She denies drainage or odor. She reports same pain. She denies n/sob/cp/chills or f. PMHx: Arthritis, Diabetes, Deep Vein Thrombosis (left upper arm), HTN, Rheumatoid Arthritis PSHx: TKR, Graft placement on the wound SHx: denies Allergies: Amoxicillin, Penicillins, Sulfa drugs, Shellfish Past Patient History - Past Medical History & Family History Past Medical History?: Yes - Past Social History Smoking Status: Never Smoked - CARDIAC Hx Hypertension: Yes Other/Comment: s/p L TKR - PULMONARY Hx Respiratory Disorders: No - NEUROLOGICAL Hx Neurological Disorder: No - HEENT Hx HEENT Problems: No - RENAL Hx Chronic Kidney Disease: No - ENDOCRINE/METABOLIC Hx Endocrine Disorders: No - HEMATOLOGICAL/ONCOLOGICAL Hx Blood Disorders: No Other/Comment: R ankle blood clots 2012 - INTEGUMENTARY Hx Dermatological Problems: Yes Hx Cellulitis: Yes Other/Comment: WOUND ULCER R leg - MUSCULOSKELETAL/RHEUMATOLOGICAL Hx Arthritis: Yes Hx Falls: Yes - GASTROINTESTINAL Hx Gastrointestinal Disorders: No - GENITOURINARY/GYNECOLOGICAL Hx Genitourinary Disorders: No - PSYCHIATRIC Hx Psychophysiologic Disorder: No Hx Emotional Abuse: No Hx Physical Abuse: No Hx Substance Use: No - SURGICAL HISTORY Hx Joint Replacement: Yes (TOTAL RIGHT KNEE REPLACEMENT 2010) Hx Orthopedic Surgery: Yes (left knee replaced) Other/Comment: SX FOR BLOOD CLOTS RT ANKLE - ANESTHESIA Hx Anesthesia: Yes Hx Anesthesia Reactions: No Hx Malignant Hyperthermia: No Meds Allergies/Adverse Reactions: Allergies Allergy/AdvReac Type Severity Reaction Status Date / Time amoxicillin Allergy RASH Verified 08/18/17 14:42 Penicillins Allergy RASH Verified 08/18/17 14:42 shellfish derived Allergy PAIN Verified 08/18/17 14:42 Sulfa (Sulfonamide Allergy RASH Verified 08/18/17 14:42 Antibiotics) - Medications Medications: Current Medications Brimonidine Tartrate (Alphagan 0.2% Opht) 1 drop OU DAILY [facility] Last Admin: 10/31/17 08:46 Dose: 1 drop Diphenhydramine HCl (Benadryl) 25 mg PO DAILY [facility] Doxycycline Hyclate (Doryx) 100 mg PO HS [facility] PRN Reason: Protocol Enoxaparin Sodium (Lovenox) 40 mg SC DAILY [facility] PRN Reason: Protocol Last Admin: 10/31/17 08:50 Dose: 40 mg Enoxaparin Sodium (Lovenox) 40 mg SC DAILY [facility] PRN Reason: Protocol Stop: 11/01/17 00:00 Last Admin: 10/30/17 21:39 Dose: 40 mg Gabapentin (Neurontin) 300 mg PO TID [facility] Last Admin: 10/31/17 08:50 Dose: 300 mg Hydromorphone HCl (Dilaudid) 0.5 mg IVP Q4 PRN PRN Reason: Pain, moderate (4-7) Stop: 10/31/17 23:12 Last Admin: 10/31/17 11:29 Dose: 0.5 mg Latanoprost (Xalatan Opht) 1 drop OU DAILY [facility] Last Admin: 10/31/17 08:52 Dose: 1 drop Losartan Potassium (Cozaar) 100 mg PO DAILY [facility] Last Admin: 10/31/17 08:57 Dose: 100 mg Multivitamins/Minerals (Therapeutic-M Tab) 1 tab PO DAILY [facility] Last Admin: 10/31/17 08:51 Dose: 1 tab Ondansetron HCl (Zofran Inj) 8 mg IVP Q4 PRN PRN Reason: Nausea/Vomiting Last Admin: 10/31/17 08:53 Dose: 8 mg Pantoprazole Sodium (Protonix Ec Tab) 40 mg PO DAILY [facility] Last Admin: 10/31/17 08:51 Dose: 40 mg Pravastatin Sodium (Pravachol) 40 mg PO DAILY [facility] Last Admin: 10/31/17 08:51 Dose: 40 mg Zolpidem Tartrate (Ambien) 5 mg PO HS PRN PRN Reason: Insomnia Last Admin: 10/29/17 23:38 Dose: 5 mg Physical Exam - Constitutional Appears: Well, Non-toxic, No Acute Distress - Extremities Exam Additional comments: RLE focused exam Vasc: DP/PT pulses palpable 1/4. Temperature gradient warm to warm. CFT < 3 seconds to all digits. Pitting edema noted Neuro: Protective sensation grossly intact B/L Derm: Venous stasis ulceration noted to right lateral leg measuring roughly 5 cm x 3.5 cm x 0.1 cm. Wound base is 90%granular and 10% fibrotic. Mild serous draiange noted. No erythema, no abscess, no streaking, no undermining, no tunneling, no maceration, xerosis, abnormal pigmentation or abnormal growths noted at this time. No probe to bone. MSK: tenderness to palpation to ulcer site - Neurological Exam Neurological exam: Alert, Oriented x3 - Psychiatric Exam Psychiatric exam: Normal Affect, Normal Mood Results - Vital Signs Recent Vital Signs: Last Vital Signs Temp 98 F 10/31/17 12:30 Pulse 90 10/31/17 12:30 Resp 18 10/31/17 12:30 BP 132/80 10/31/17 12:30 Pulse Ox 98 10/31/17 12:30 - Labs Result Diagrams: 10/31/17 05:30 10/31/17 05:30 Labs: Laboratory Results - last 24 hr 10/29/17 10/30/17 10/31/17 16:08 09:00 05:30 WBC 9.6 RBC 4.51 Hgb 11.0 L D Hct 34.8 MCV 77.2 L MCH 24.4 L MCHC 31.6 L RDW 18.4 H Plt Count 242 Sodium Potassium Chloride Carbon Dioxide Anion Gap BUN Creatinine Est GFR ( Amer) Est GFR (Non-Af Amer) Random Glucose Calcium Folate > 20.0 Blood Type A POSITIVE Antibody Screen Negative Crossmatch See Detail BBK History Checked Patient has bt 10/31/17 05:30 WBC RBC Hgb Hct MCV MCH MCHC RDW Plt Count Sodium 138 Potassium 4.5 Chloride 102 Carbon Dioxide 26 Anion Gap 15 BUN 14 Creatinine 1.1 Est GFR ( Amer) > 60 Est GFR (Non-Af Amer) 50 Random Glucose 87 Calcium 9.0 Folate Blood Type Antibody Screen Crossmatch BBK History Checked Assessment & Plan - Assessment and Plan (Free Text) Assessment: 67 year old female seen bedside for right leg venous stasis ulcer-stable Plan: Patient seen and examined Discussed plan in detail with attending Dr. York Charts, labs, vitals reviewed (afebrile, absent leukocytosis) Cleanse ulceration with saline solution and ulceration dressed with adaptic, medihoney, gauze, abd and 3 layer compression Ulceration is stable with no clinical signs of infection Maanda per podiatry standpoint Will continue to follow and provide local wound care Thank you for the consult Will f/u with Dr. York upon discharge
--- NOTE | 2017-10-31 18:49 | PN ---
DAILY PROGRESS NOTE DATE: 10/31/2017 SUBJECTIVE: The patient is seen today, 10/31/2017. She had high blood pressure as well as one episode of nausea, likely secondary to the pain medications and the patient vomited once. PHYSICAL EXAMINATION VITAL SIGNS: Blood pressure now is 132/80, temperature 98, respiratory rate 15 and pulse 90. HEENT: Pupils equal, reactive to light. Normal-appearing mucosa of the conjunctivae, oropharynx and nasal membrane mucosa. NECK: Supple. No JVD. No carotid bruit. No lymph node. No thyromegaly. CHEST/LUNGS: Bilateral good air exchange. No rales, no rhonchi. CARDIOVASCULAR: PMI not localized, S1 and S2. No additional sounds. ABDOMEN: Normoactive bowel sounds. No tenderness. No organomegaly. No masses. EXTREMITIES: No cyanosis. No clubbing. No edema. 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 No neurological deficit could be appreciated. ASSESSMENT: 1. Fall with acute left transcervical femoral neck fracture with superior migration of the distal fracture segment. 2. Hypertension. 3. Hyperlipidemia. 4. Osteoarthritis, status post bilateral total knee replacement. PLAN: We will resume the patient's medications of hypertension. Podiatry consult and patient is currently having Unna boots in the right lower extremity. Will give her one more dose of Lovenox today and hold it tomorrow on anticipation for surgery on the following day. Terry Munoz MD
[2017-11-01] MEDS: Pantoprazole 40 mg EC Tab PO SCH (08:49)
[2017-11-01] MEDS: Pravastatin Sodium 40 MG TAB PO SCH (08:50)
[2017-11-01] MEDS: Multivitamin With Minerals Tab PO SCH (08:50)
[2017-11-01] MEDS: Latanoprost 0.005% Opht SOUTION OU SCH (08:51)
[2017-11-01] MEDS: Brimonidine 0.2% 50 DROP/5 ML BOTTLE OU SCH (08:51)
[2017-11-01] MEDS: Enoxaparin 40 mg Syringe SC SCH (08:52)
--- NOTE | 2017-11-01 09:15 | CP.PCM.PN ---
Subjective - Date & Time of Evaluation Date of Evaluation: 10/01/17 Time of Evaluation: 09:00 - Subjective Subjective: NO CHEST PAIN OR SOB LEFT HIP PAIN ALSO COMPLAINS OF CONSTIPATION NOT RELIEVED BY PRUNE JUICE Objective - Vital Signs/Intake and Output Vital Signs (last 24 hours): Temp Pulse Resp BP Pulse Ox 98.4 F 88 20 161/99 H 95 11/01/17 07:53 11/01/17 07:53 11/01/17 07:53 11/01/17 08:50 11/01/17 07:53 - Medications Medications: Current Medications Brimonidine Tartrate (Alphagan 0.2% Opht) 1 drop OU DAILY [facility] Last Admin: 11/01/17 08:51 Dose: 1 drop Diphenhydramine HCl (Benadryl) 25 mg PO DAILY [facility] Last Admin: 11/01/17 08:51 Dose: 25 mg Doxycycline Hyclate (Doryx) 100 mg PO HS [facility] PRN Reason: Protocol Last Admin: 10/31/17 21:35 Dose: 100 mg Enoxaparin Sodium (Lovenox) 40 mg SC DAILY [facility] PRN Reason: Protocol Last Admin: 11/01/17 08:52 Dose: 40 mg Gabapentin (Neurontin) 300 mg PO TID [facility] Last Admin: 11/01/17 08:49 Dose: 300 mg Latanoprost (Xalatan Opht) 1 drop OU DAILY [facility] Last Admin: 11/01/17 08:51 Dose: 1 drop Losartan Potassium (Cozaar) 100 mg PO DAILY [facility] Last Admin: 11/01/17 08:50 Dose: 100 mg Magnesium Hydroxide (Milk Of Magnesia) 30 ml PO QID PRN PRN Reason: Constipation Multivitamins/Minerals (Therapeutic-M Tab) 1 tab PO DAILY [facility] Last Admin: 11/01/17 08:50 Dose: 1 tab Ondansetron HCl (Zofran Inj) 8 mg IVP Q4 PRN PRN Reason: Nausea/Vomiting Last Admin: 10/31/17 08:53 Dose: 8 mg Pantoprazole Sodium (Protonix Ec Tab) 40 mg PO DAILY [facility] Last Admin: 11/01/17 08:49 Dose: 40 mg Pravastatin Sodium (Pravachol) 40 mg PO DAILY [facility] Last Admin: 11/01/17 08:50 Dose: 40 mg Zolpidem Tartrate (Ambien) 5 mg PO HS PRN PRN Reason: Insomnia Last Admin: 11/01/17 00:39 Dose: 5 mg - Labs Labs: 10/31/17 05:30 10/31/17 05:30 PT 11.9 Seconds (9.8-13.1) 10/29/17 16:08 INR 1.1 (0.9-1.2) 10/29/17 16:08 APTT 29.6 Seconds (25.6-37.1) 10/29/17 16:08 - Respiratory Exam Respiratory Exam: Clear to Ausculation Bilateral - Cardiovascular Exam Cardiovascular Exam: REGULAR RHYTHM, +S1, +S2 - Additional Findings Additional findings: H/H Assessment and Plan - Assessment and Plan (Free Text) Assessment: FALL WITH LEFT HIP FRACTURE HYPERTENSION HYPERLIPIDEMIA CONSTIPATION Plan: CONTINUE LOSARTAN, PRAVASTATIN AND LOVENOX MOM GIVEN FOR CONSTIPATION TO OR IN AM
[2017-11-01] MEDS: Magnesium Hydroxide Susp 30 ml UD PO PRN (10:33)
[2017-11-01 16:22] LABS: SQUAMOUS EPITHIAL 1 /hpf (0-5); URINE BACTERIA RARE (<OCC); URINE BILIRUBIN NEGATIVE (NEGATIVE); URINE BLOOD SMALL (NEGATIVE); URINE CLARITY SLIGHTY-CLOUDY (Clear); URINE COLOR YELLOW (YELLOW); URINE GLUCOSE (UA) NEG (Normal); URINE LEUKOCYTE ESTERASE TRACE Leu/uL (Negative); URINE NITRATE NEGATIVE (NEGATIVE); URINE PROTEIN NEGATIVE (NEGATIVE); URINE UROBILINOGEN 0.2-1.0 mg/dL (0.2-1.0)
--- NOTE | 2017-11-01 23:03 | CT ---
EXAM: CT Left Lower Extremity Without Intravenous Contrast, Hip CLINICAL HISTORY: 67 years old, female; Injury or trauma; Fall; Initial encounter; Fracture, traumatic; Closed fracture; Hip; Left; Additional info: S/P l hip FX TECHNIQUE: Axial computed tomography images of the left hip without intravenous contrast. All CT scans at this facility use one or more dose reduction techniques, viz.: automated exposure control; ma/kV adjustment per patient size (including targeted exams where dose is matched to indication; i.e. head); or iterative reconstruction technique. COMPARISON: CR - HIP W/WO PELVIS 2-3 VIEWS LT 2017-10-29 15:41 FINDINGS: Bones/joints: Fracture left femoral neck. Superior displacement of distal fracture fragment. Anterior angulation at fracture apex. Sclerotic fracture margins. Minimal callus formation about fracture site without osseous bridging. Degenerative changes of lumbar spine. No dislocation. Soft tissues: Mild to moderate stranding within subcutaneous tissues and interfascial planes of left thigh. Vasculature: Mild atherosclerotic disease. Bowel: Colonic diverticula. Bladder: Dodson catheter. Reproductive: Lobulated uterus with several coarse calcifications compatible with fibroids. IMPRESSION: 1. Left proximal femur fracture, subacute to chronic. 2. Soft tissue edema, nonspecific. Clinical correlation is needed. 3. Incidental/non-acute findings are described above.
[2017-11-02 06:47] LABS: HEMOGLOBIN 10.9 g/dL (12.0-16.0); MEAN CELL VOLUME 78.5 fl (81.0-99.0); MEAN CORPUSCULAR HEMOGLOBIN 24.1 pg (27.0-31.0); MEAN CORPUSCULAR HGB CONC 30.7 g/dL (33.0-37.0); RBC 4.53 Mil/uL (3.80-5.20); WHITE BLOOD COUNT 7.8 K/uL (4.8-10.8)
[2017-11-02 07:03] LABS: PROTHROMBIN TIME 11.4 Seconds (9.8-13.1)
[2017-11-02] MEDS ORDERED: Neostigmine Methylsulfate 2 MG/2 ML ML IV ONE ×2 (07:25→12:25)
[2017-11-02] MEDS ORDERED: Succinylcholine 200 mg/10 ml Inj IV ONE ×2 (07:26→12:19)
[2017-11-02] MEDS ORDERED: Midazolam 2 MG/2 ML VIAL ONE ×2 (07:26→12:19)
[2017-11-02] MEDS ORDERED: Sodium Chloride 0.9% 0 ML IV ONE (07:26)
[2017-11-02] MEDS ORDERED: Lidocaine 4% (Laryng-O-Jet) Kit MM ONE ×2 (07:26→12:19)
[2017-11-02] MEDS ORDERED: ePHEDrine 50 mg/ml Inj ONE ×2 (07:30→13:48)
[2017-11-02] MEDS ORDERED: Rocuronium 10 mg/ml (5 ml) ONE ×4 (07:31→15:09)
[2017-11-02] MEDS ORDERED: Morphine 1 mg/ml preservative-free Inj(Duramorph) ONE ×2 (07:58→13:50)
[2017-11-02] MEDS ORDERED: Etomidate 20 mg/10ml Inj IV ONE (08:00)
[2017-11-02] MEDS ORDERED: Phenylephrine 10 mg/ml Inj ONE ×2 (08:01→14:56)
[2017-11-02] MEDS: Pravastatin Sodium 40 MG TAB PO SCH (08:12)
[2017-11-02] MEDS: Pantoprazole 40 mg EC Tab PO SCH (08:12)
[2017-11-02] MEDS: Multivitamin With Minerals Tab PO SCH (08:12)
[2017-11-02] MEDS: Latanoprost 0.005% Opht SOUTION OU SCH (08:13)
[2017-11-02] MEDS: Brimonidine 0.2% 50 DROP/5 ML BOTTLE OU SCH (08:13)
--- NOTE | 2017-11-02 09:03 | HP ---
HISTORY OF PRESENT ILLNESS: This is a 67-year-old female with history of multiple medical problems, was brought to emergency room after a mechanical fall and left lower extremity pain. The patient was evaluated in the emergency room and she was found to have left hip fracture. The patient was admitted for further management. The patient denied to have any chest pain, shortness of breath, palpitation, or any evidence of cardiopulmonary decompensation. REVIEW OF SYSTEMS: Other review of systems is negative. ALLERGIES: THE PATIENT HAS ALLERGY TO PENICILLIN, SULFONAMIDES, AND SHELLFISH. PAST MEDICAL HISTORY: Hypertension, hyperlipidemia, and status post DVT about 5 years ago. SOCIAL HISTORY: No history of smoking, EtOH, or substance abuse. FAMILY HISTORY: Noncontributory. MEDICATIONS: As per MAR. PHYSICAL EXAMINATION: GENERAL: The patient is not in any cardiopulmonary distress. VITAL SIGNS: Blood pressure 139/73, temperature 98.2, respiratory rate 20, and pulse 86. HEENT: Pupils equal and reactive to light. Normal-appearing mucosa of the conjunctivae, oropharynx and nasal membrane mucosa. NECK: Supple. No JVD. No carotid bruit. No lymph node. No thyromegaly. CHEST AND LUNGS: Bilaterally symmetrical expansion. Good air exchange. No rales. No rhonchi. CARDIOVASCULAR: PMI not localized. S1 and S2. No additional sounds. ABDOMEN: Normoactive bowel sounds. No tenderness. No organomegaly. No masses. EXTREMITIES: No cyanosis. No clubbing. No edema. CENTRAL NERVOUS SYSTEM: Alert, awake, and oriented x3. No neurological deficit could be appreciated. ASSESSMENT: Mechanical fall with left hip fracture, hypertension, hyperlipidemia, and iron-deficiency anemia. PLAN: We will transfuse the patient two units of packed RBCs and the patient will need further workup for anemia including colonoscopy. The patient was informed about that. Cardiac clearance prior to surgery, resume the patient's home medications, and DVT prophylaxis. Terry Munoz MD
--- NOTE | 2017-11-02 09:07 | CP.PCM.PN ---
Subjective - Date & Time of Evaluation Date of Evaluation: 11/02/17 Time of Evaluation: 08:00 - Subjective Subjective: NO NEW COMPLAINTS HAD BM YESTERDAY AND FEELS BETTER Objective - Vital Signs/Intake and Output Vital Signs (last 24 hours): Temp Pulse Resp BP Pulse Ox 97.2 F L 93 H 20 164/90 H 97 11/02/17 08:26 11/02/17 08:26 11/02/17 08:26 11/02/17 08:26 11/02/17 08:26 - Medications Medications: Current Medications Brimonidine Tartrate (Alphagan 0.2% Opht) 1 drop OU DAILY [facility] Last Admin: 11/02/17 08:13 Dose: 1 drop Diphenhydramine HCl (Benadryl) 25 mg PO DAILY [facility] Last Admin: 11/02/17 08:12 Dose: Not Given Doxycycline Hyclate (Doryx) 100 mg PO HS [facility] PRN Reason: Protocol Last Admin: 11/01/17 21:05 Dose: 100 mg Gabapentin (Neurontin) 300 mg PO TID [facility] Last Admin: 11/02/17 08:12 Dose: Not Given Hydromorphone HCl (Dilaudid) 0.5 mg IVP Q4 PRN PRN Reason: Pain, moderate (4-7) Last Admin: 11/02/17 06:48 Dose: 0.5 mg Latanoprost (Xalatan Opht) 1 drop OU DAILY [facility] Last Admin: 11/02/17 08:13 Dose: 1 drop Losartan Potassium (Cozaar) 100 mg PO DAILY [facility] Last Admin: 11/02/17 08:14 Dose: Not Given Magnesium Hydroxide (Milk Of Magnesia) 30 ml PO QID PRN PRN Reason: Constipation Last Admin: 11/01/17 10:33 Dose: 30 ml Multivitamins/Minerals (Therapeutic-M Tab) 1 tab PO DAILY [facility] Last Admin: 11/02/17 08:12 Dose: Not Given Ondansetron HCl (Zofran Inj) 8 mg IVP Q4 PRN PRN Reason: Nausea/Vomiting Last Admin: 10/31/17 08:53 Dose: 8 mg Pantoprazole Sodium (Protonix Ec Tab) 40 mg PO DAILY [facility] Last Admin: 11/02/17 08:12 Dose: Not Given Pravastatin Sodium (Pravachol) 40 mg PO DAILY [facility] Last Admin: 11/02/17 08:12 Dose: Not Given Zolpidem Tartrate (Ambien) 5 mg PO HS PRN PRN Reason: Insomnia Last Admin: 11/01/17 00:39 Dose: 5 mg - Labs Labs: 11/02/17 05:55 10/31/17 05:30 PT 11.4 Seconds (9.8-13.1) 11/02/17 05:55 INR 1.0 (0.9-1.2) 11/02/17 05:55 APTT 37.0 Seconds (25.6-37.1) 11/02/17 05:55 - Respiratory Exam Respiratory Exam: Clear to Ausculation Bilateral - Cardiovascular Exam Cardiovascular Exam: REGULAR RHYTHM, +S1, +S2 Assessment and Plan - Assessment and Plan (Free Text) Assessment: FALL WITH LEFT HIP FRACTURE HYPERTENSION HYPERLIPIDEMIA Plan: CONTINUE LOSARTAN AND PRAVASTATIN AMLODIPINE GIVEN LAST EVENING DUE TO ELEVATED BLOOD PRESSURE
[2017-11-02 09:41] LABS: BLOOD UREA NITROGEN 15 mg/dl (7-17); CALCIUM 8.6 mg/dL (8.4-10.2); GFR AFRICAN-AMERICAN > 60; GFR NON-AFRICAN AMERICAN 50
[2017-11-02] MEDS ORDERED: Sevoflurane - Inhalation Anesthetic Liq (250 ml) ONE (10:08)
[2017-11-02] MEDS ORDERED: Sodium Chloride 0.9% 10 ML IV ONE (12:19)
[2017-11-02] MEDS ORDERED: Propofol 10 mg/ml Inj (20 ML) ONE (12:26)
[2017-11-02] MEDS ORDERED: Lidocaine 1% 5ml Abboject IV ONE (12:27)
[2017-11-02] MEDS ORDERED: Lidocaine 1% Inj (20ml) ONE (12:29)
[2017-11-02] MEDS ORDERED: Bacitracin Ointment 30 GM TUBE ONE ×2 (12:29→17:49)
[2017-11-02] MEDS ORDERED: Absorbable Gelatin Sponge Size 100 ONE (12:29)
[2017-11-02] MEDS ORDERED: Thrombin Topical 5,000 Int Units Spray Kit ONE (12:29)
[2017-11-02] MEDS ORDERED: Bupivacaine 0.5% Inj(30mL) ONE (12:29)
[2017-11-02] MEDS ORDERED: Lactated Ringer's 1,000 ML IV ONE ×4 (13:52→17:30)
[2017-11-02] MEDS ORDERED: Sodium Chloride 0.9% 1,000 ML IV ONE (14:00)
[2017-11-02] MEDS ORDERED: Bacitracin OINT 15GM TOP ONE (17:45)
[2017-11-02] MEDS ORDERED: Neostigmine Methylsulfate 3mg/3ml Syringe IV ONE (18:03)
--- NOTE | 2017-11-02 18:14 | PCM.SURG1 ---
Surgeon's Initial Post Op Note - Surgeon's Notes Surgeon: [employer] Technician: [facility]/ 2nd regina Ornelas,[id number] Type of Anesthesia: General Endo, Spinal Anesthesia Administered By: DR Valentin Irene/ Pre-Operative Diagnosis: Displaced subcapital fx L hip. pre-existoing O/A L hip Operative Findings: as above Post-Operative Diagnosis: as above Operation Performed: L THR. femoral neck osteotomy. arthrotomy/synovectomy. release iliopsooas tendon. autograft bone graft to acetabulum Specimen/Specimens Removed: bone/synovium/cartilage Estimated Blood Loss: EBL {In ML}: 200 Blood Products Given: N/A Drains Used: No Drains Post-Op Condition: Fair Date of Surgery/Procedure: 11/02/17 Time of Surgery/Procedure: 15:30 (time in room/anetsheisa induction time 1350)
[2017-11-02 19:06] LABS: HEMOGLOBIN 11.2 g/dL (12.0-16.0); MEAN CELL VOLUME 78.7 fl (81.0-99.0); MEAN CORPUSCULAR HGB CONC 31.8 g/dL (33.0-37.0); RBC 4.46 Mil/uL (3.80-5.20); RED CELL DISTRIBUTION WIDTH 18.5 % (11.5-14.5)
[2017-11-03] MEDS: Clindamycin 600mg/50ml NS 600 MG/50 ML BAG IVPB SCH ×2 (00:59→09:07)
[2017-11-03] MEDS ORDERED: ceFAZolin 1 GM in Sodium Chloride 0.9% 100 ML IVPB SCH (01:00)
--- NOTE | 2017-11-03 08:06 | CP.PCM.PN ---
Subjective - Date & Time of Evaluation Date of Evaluation: 11/03/17 Time of Evaluation: 07:30 - Subjective Subjective: S- pt doing well/minimal discomfort post op L hip Objective - Vital Signs/Intake and Output Vital Signs (last 24 hours): Temp Pulse Resp BP Pulse Ox 97.4 F L 86 20 150/87 100 11/03/17 00:50 11/03/17 00:50 11/03/17 00:50 11/03/17 00:50 11/03/17 00:50 Intake and Output: 11/03/17 11/03/17 06:59 18:59 Output Total 125 Balance -125 - Medications Medications: Current Medications Brimonidine Tartrate (Alphagan 0.2% Opht) 1 drop OU DAILY [facility] Last Admin: 11/02/17 08:13 Dose: 1 drop Diphenhydramine HCl (Benadryl) 25 mg PO DAILY [facility] Last Admin: 11/02/17 08:12 Dose: Not Given Doxycycline Hyclate (Doryx) 100 mg PO [facility] PRN Reason: Protocol Last Admin: 11/02/17 21:50 Dose: 100 mg Enoxaparin Sodium (Lovenox) 40 mg SC DAILY [facility] PRN Reason: Protocol Gabapentin (Neurontin) 300 mg PO TID [facility] Last Admin: 11/02/17 17:19 Dose: Not Given Hydromorphone HCl (Dilaudid) 0.5 mg IVP Q4 PRN PRN Reason: Pain, moderate (4-7) Last Admin: 11/03/17 05:15 Dose: 0.5 mg Hydromorphone HCl (Dilaudid 0.2 Mg/Ml Pattern Shop Supervisor) 0 mg IV PRN PRN; Protocol PRN Reason: Pain, severe (8-10) Last Admin: 11/02/17 19:30 Dose: 0.1 mg Clindamycin Phosphate (Cleocin In Normal Saline) 600 mg in 50 mls @ 50 mls/hr IVPB Q8 [facility] PRN Reason: Protocol Stop: 11/03/17 09:59 Last Admin: 11/03/17 00:59 Dose: 50 mls/hr Latanoprost (Xalatan Opht) 1 drop OU DAILY [facility] Last Admin: 11/02/17 08:13 Dose: 1 drop Losartan Potassium (Cozaar) 100 mg PO DAILY [facility] Last Admin: 11/02/17 08:14 Dose: Not Given Magnesium Hydroxide (Milk Of Magnesia) 30 ml PO QID PRN PRN Reason: Constipation Last Admin: 11/01/17 10:33 Dose: 30 ml Multivitamins/Minerals (Therapeutic-M Tab) 1 tab PO DAILY [facility] Last Admin: 11/02/17 08:12 Dose: Not Given Ondansetron HCl (Zofran Inj) 8 mg IVP Q4 PRN PRN Reason: Nausea/Vomiting Last Admin: 11/02/17 21:50 Dose: 8 mg Pantoprazole Sodium (Protonix Ec Tab) 40 mg PO DAILY [facility] Last Admin: 11/02/17 08:12 Dose: Not Given Pravastatin Sodium (Pravachol) 40 mg PO DAILY [facility] Last Admin: 11/02/17 08:12 Dose: Not Given Zolpidem Tartrate (Ambien) 5 mg PO HS PRN PRN Reason: Insomnia Last Admin: 11/03/17 00:14 Dose: 5 mg - Labs Labs: 11/02/17 18:54 11/02/17 09:22 PT 11.4 Seconds (9.8-13.1) 11/02/17 05:55 INR 1.0 (0.9-1.2) 11/02/17 05:55 APTT 37.0 Seconds (25.6-37.1) 11/02/17 05:55 - Additional Findings Additional findings: Obj- Musculoskeletal stance/gait- defe N/V intact excellent progress Assessment and Plan - Assessment and Plan (Free Text) Assessment: A- s/p THR L P-weighrt bearing to tolerance lovenox 40 mg subq daily d/c planning
--- NOTE | 2017-11-03 08:23 | PN ---
DAILY PROGRESS NOTE DATE: 11/02/2017 SUBJECTIVE: The patient is seen today on 11/02/2017 as postoperative. The patient was seen in recovery after open reduction and internal fixation of the left hip. PHYSICAL EXAMINATION VITAL SIGNS: Blood pressure 134/81, temperature 97.1, respiratory rate 18 and pulse 77. HEENT: Pupils equal and reactive to light. Normal appearing mucosa of the conjunctivae, oropharyngeal and nasal membrane mucosa. NECK: Supple. No JVD. No carotid bruit. No lymph node. No thyromegaly. CHEST AND LUNGS: Bilaterally symmetrical expansion. Good air exchange. No rales. No rhonchi. CARDIOVASCULAR SYSTEM: PMI not localized. S1 and S2. No additional sounds. ABDOMEN: Normoactive bowel sounds. No tenderness. No organomegaly. No masses. EXTREMITIES: No cyanosis. No clubbing. No edema. CENTRAL NERVOUS SYSTEM: Alert, awake and oriented x2. No neurological deficits could be appreciated. ASSESSMENT: 1. Status post fall with fracture of left hip, post open reduction and internal fixation. 2. Hypertension. 3. Hypercholesterolemia. 4. Bilateral total knee replacement. PLAN: We will resume the patient's preoperative medications. We will start DVT prophylaxis once cleared by Orthopedics. Monitor hemoglobin and hematocrit. Terry Munoz MD
[2017-11-03] MEDS: Pantoprazole 40 mg EC Tab PO SCH (09:08)
[2017-11-03] MEDS: Latanoprost 0.005% Opht SOUTION OU SCH (09:09)
[2017-11-03] MEDS: Multivitamin With Minerals Tab PO SCH (09:09)
[2017-11-03] MEDS: Pravastatin Sodium 40 MG TAB PO SCH (09:09)
[2017-11-03] MEDS: Brimonidine 0.2% 50 DROP/5 ML BOTTLE OU SCH (09:09)
--- NOTE | 2017-11-03 09:22 | CP.PCM.PN ---
Subjective - Date & Time of Evaluation Date of Evaluation: 11/03/17 Time of Evaluation: 08:45 - Subjective Subjective: NO CHEST PAIN OR SOB Objective - Vital Signs/Intake and Output Vital Signs (last 24 hours): Temp Pulse Resp BP Pulse Ox 98.4 F 102 H 20 134/80 100 11/03/17 08:16 11/03/17 09:08 11/03/17 08:16 11/03/17 09:08 11/03/17 08:16 Intake and Output: 11/03/17 11/03/17 06:59 18:59 Output Total 125 Balance -125 - Medications Medications: Current Medications Brimonidine Tartrate (Alphagan 0.2% Opht) 1 drop OU DAILY [facility] Last Admin: 11/03/17 09:09 Dose: 1 drop Diphenhydramine HCl (Benadryl) 25 mg PO DAILY [facility] Last Admin: 11/03/17 09:08 Dose: 25 mg Doxycycline Hyclate (Doryx) 100 mg PO HS [facility] PRN Reason: Protocol Last Admin: 11/02/17 21:50 Dose: 100 mg Enoxaparin Sodium (Lovenox) 40 mg SC DAILY [facility] PRN Reason: Protocol Gabapentin (Neurontin) 300 mg PO TID [facility] Last Admin: 11/03/17 09:08 Dose: 300 mg Hydromorphone HCl (Dilaudid) 0.5 mg IVP Q4 PRN PRN Reason: Pain, moderate (4-7) Last Admin: 11/03/17 09:07 Dose: 0.5 mg Clindamycin Phosphate (Cleocin In Normal Saline) 600 mg in 50 mls @ 50 mls/hr IVPB Q8 [facility] PRN Reason: Protocol Stop: 11/03/17 09:59 Last Admin: 11/03/17 09:07 Dose: 50 mls/hr Latanoprost (Xalatan Opht) 1 drop OU DAILY [facility] Last Admin: 11/03/17 09:09 Dose: 1 drop Losartan Potassium (Cozaar) 100 mg PO DAILY [facility] Last Admin: 11/03/17 09:08 Dose: 100 mg Magnesium Hydroxide (Milk Of Magnesia) 30 ml PO QID PRN PRN Reason: Constipation Last Admin: 11/01/17 10:33 Dose: 30 ml Multivitamins/Minerals (Therapeutic-M Tab) 1 tab PO DAILY [facility] Last Admin: 11/03/17 09:09 Dose: 1 tab Ondansetron HCl (Zofran Inj) 8 mg IVP Q4 PRN PRN Reason: Nausea/Vomiting Last Admin: 11/02/17 21:50 Dose: 8 mg Pantoprazole Sodium (Protonix Ec Tab) 40 mg PO DAILY [facility] Last Admin: 11/03/17 09:08 Dose: 40 mg Pravastatin Sodium (Pravachol) 40 mg PO DAILY [facility] Last Admin: 11/03/17 09:09 Dose: 40 mg Zolpidem Tartrate (Ambien) 5 mg PO HS PRN PRN Reason: Insomnia Last Admin: 11/03/17 00:14 Dose: 5 mg - Labs Labs: 11/02/17 18:54 11/02/17 09:22 PT 11.4 Seconds (9.8-13.1) 11/02/17 05:55 INR 1.0 (0.9-1.2) 11/02/17 05:55 APTT 37.0 Seconds (25.6-37.1) 11/02/17 05:55 - Respiratory Exam Respiratory Exam: Clear to Ausculation Bilateral - Cardiovascular Exam Cardiovascular Exam: REGULAR RHYTHM, +S1, +S2 - Additional Findings Additional findings: OR NOTES REVIEWED WITH LEFT TOTAL HIP REPLACEMENT Assessment and Plan - Assessment and Plan (Free Text) Assessment: LEFT THR FOR FALL AND FRACTURE HYPERTENSION HYPERLIPIDEMIA Plan: CONTINUE LOSARTAN, PRAVASTATIN, LOVENOX AND PAIN MEDS
--- NOTE | 2017-11-03 10:34 | RAD ---
PROCEDURE: Left Hip X-ray Radiographs. HISTORY: s/p L THR COMPARISON: Comparison is made with the previous CT dated 11/01/2017 FINDINGS: BONES: Patient status post total hip replacement on the left. Postsurgical changes are noted. The hardware is seen at appropriate position. No evidence of acute fracture otherwise in the pelvis and right hip. JOINTS: The right hip is located demonstrates [id number] osteoarthritic changes P SOFT TISSUES: Normal. OTHER FINDINGS: None. IMPRESSION: Status post left total hip replacement.
--- NOTE | 2017-11-03 11:58 | OP ---
PROCEDURE DATE: 11/02/2017 LOCATION: [facility]. PREOPERATIVE DIAGNOSIS: Displaced subcapital comminuted fracture of the left femur. POSTOPERATIVE DIAGNOSES: 1. Displaced subcapital fracture of the left femur. 2. Preexisting osteoarthritic change of the hip. PROCEDURES: 1. Left total hip replacement arthroplasty, anterior approach. 2. Femoral neck osteotomy. 3. Release of iliopsoas tendon. 4. Autograft bone grafting to the acetabulum and proximal femur. 5. Computer navigation. SURGEON: Isreal Rinaldi MD HEALTH DATA ADMINISTRATOR: Claire Licona, certified registered nursing food and nutrition services assistant. SECOND GRINDER SET UP OPERATOR SURFACE: Narayan Hill, general surgical garment assembler. ANESTHESIA ADMINISTERED BY: Dr. Ureña and Dr. Proctor. BLOOD LOSS: Approximately 200 mL. BLOOD REPLACED: 1 unit of packed red blood cells. COMPLICATIONS: No complications. DRAINS: No drains. OPERATIVE INDICATIONS: Cecelia Jarquin is a woman who has had a prior left total knee replacement arthroplasty who presents after a fall. The patient presents to the emergency room at [facility] with a displaced subcapital fracture of the left hip with preexisting osteoarthritic change. The patient stabilized, medical clearance is obtained. Pros, cons, risks and benefits of surgical approach were discussed, the possibility of mechanical failure, infection, thromboembolic disease, leg-length inequality, nerve injury, recurrent dislocation, possibility of secondary or tertiary surgeries were discussed. The patient can no longer withstand the discomfort. The patient, it should be noted had a prosthetic replacement of the left knee on the same side. OPERATIVE PROCEDURE: After having obtained informed consent in the above fashion, after having identified side, site and procedure and a critical pause/time-out, after satisfactory induction of spinal and general anesthesia, the patient identified as Cecelia Jarquin in the supine position with all bony prominences well padded. The left lower extremity was prepped and draped in the usual fashion for lower extremity surgery. The [facility] traction and positioner were employed. Under the surgeon's direction at this point, the fluoroscope was positioned, video images were generated and therapeutic decisions were made therefrom. This having been accomplished, verification of position was offered on AP image intensification views. Position was found to be acceptable with preexisting arthritic changes noted. It should be noted that the femoral neck osteotomy was planned and a napkin ring is planned both virtually preoperatively and intraoperatively. Great planning was used to achieve leg-length equality and stability and the level of the osteotomy covered as a separate procedure. After having obtained informed consent, after having identified side, site and procedure and a critical pause/time-out, after the satisfactory induction of the anesthetic, after sterilely prepping and draping, an incision was described one fingerbreadth distal to the ASIS four fingerbreadths distal and superficial to the tensor fascia femoris muscle, three fingerbreadths posterior to the anterior superior iliac spine. The fascia was divided in the area of the rectus femoris. The rectus femoris was taken down. The modified Adson-Nima was placed. The posterior aspect of the rectus femoris was identified. Hemostasis was controlled. The retractor was placed deeper and the fascia superficial to the hip joint capsule was divided. The lateral femoral circumflex vessels and the anterior branch of the lateral femoral circumflex vessels were protected and controlled with the Aquamantys and then with suture ligature. This having been accomplished, the fat superficial to the hip capsule was removed. The reflected rectus femoris was divided. Medacta and Hohmann retractors were placed and a capsulotomy was accomplished. The capsule was elevated intact and brought back in the region of the intertrochanteric tubercle to the greater trochanter. This having been accomplished, the femoral neck osteotomy was accomplished and a napkin ring of bone was removed. Comminution was removed as well. This having been accomplished and the deep Charnley retractor was placed, the acetabulum was identified. This having been accomplished, the position having been found to be acceptable, there was found to be severe preexisting arthritis. The pulvinar was excised. Arthrotomy and synovectomy was accomplished. Sequential reaming was carried out to 52 mm. The reamings were denuded of articular cartilage. At this point in time, computer navigation was employed. Two stab wounds were placed one fingerbreadth posterior to the anterior superior iliac spine. These were found to be in acceptable position. The camera bracket for the accelerometer housing fixed to the pins, the [place] navigation system was identified and placed on the ipsilateral side, the left side of iliac crest. This having been accomplished, the [place] navigation system was registered. This having been accomplished, having exposed the femoral neck, the femoral neck osteotomy was accomplished using the oscillating saw. Again after extensive preoperative planning, a napkin ring bone was removed and at this point in time, the cut femoral neck is identified. The corkscrew was placed and the head was removed from the acetabulum. This having been accomplished, the labrum was excised. The osteophytes were removed. The arthrotomy and excision of the pulvinar was accomplished. The pulvinar was excised and a portion of the transverse acetabular ligament was excised. This having been accomplished, sequential reaming was carried out to a #52 acetabular component with the verification by computer navigation with the Intellijoint sensor matted on the reamer. Reamings were denuded of articular cartilage. Trialing was accomplished. Intellijoint navigation was accomplished and the position was found to be approximately 45 to 48 degrees of abduction and 15 degrees of anteversion. This was found to be acceptable. Autograft bone grafting was carried out to the acetabulum. The Medacta cup was impacted in approximately 45 degrees of abduction and 15 degrees of anteversion. The cup was found to be acceptable and stable. At this point in time, the iliopsoas tendon was released. The pubofemoral ligament, the iliofemoral ligament, and the ischial femoral ligaments were released as well as the attachments of the conjoined in the piriformis fossa. At this point in time, the femur was delivered into the wound with external rotation and flexion and broaching was carried out. Sequential broaching was carried out to a #5 femoral component. Trialing was accomplished with a +3.5 head and was found to be stable in all planes. This having been accomplished, autograft bone grafting was accomplished. Having been accomplished to the acetabulum, the stem was removed and the appropriate size #5 Medacta femoral component was introduced without a collar. Bone grafting was accomplished to the proximal femur. A +3.5 head was introduced with the appropriate 52 mm outer bearing. The hip was reduced and found to be stable in all planes. The wound was thoroughly irrigated. Hemostasis was controlled with the Aquamantys. Verification of position was offered on image intensification views. Blood loss was approximately 200 mL, mostly from the fracture site. This having been accomplished, hemostasis was controlled and closures in layers with 0 Quill for the tensor fascia femoris, followed by 0 Quill for the subcutaneous and dayami. Compression dressing was applied. The pins were removed from the anterior superior iliac spine and the wound was closed with Vicryl and nylon. It should be noted that the registration of the Intellijoint device for the computer navigation had been accomplished in the anterior superior iliac spine. The position was found to be acceptable. The wound had been thoroughly irrigated. Verification of cup position was accomplished. Because of the nature of the fracture, the Intellijoint navigation was employed. The Intellijoint was removed. Closure began with an interrupted Vicryl and nylon. Compression dressing was applied. The patient was transferred from the operating table to the stretcher, having tolerated the procedure well. Claire Licona, certified registered nursing food and nutrition services assistant was essential to the completion of the operative goal in all points in the operative exercise. Isreal Rinaldi MD
--- NOTE | 2017-11-03 12:01 | RAD ---
PROCEDURE: Intraoperative Fluoroscopy. HISTORY: LT.HIP REPLACEMENT FINDINGS: Fluoroscopic assistance was provided for left hip replacement. Total fluoroscopic time (continuous mode) utilized during the procedure: 8.1 seconds. Submitted images from the current procedure: 3.0. Please refer to the operative report from Dr. ZAVALETA [facility].
[2017-11-03] MEDS: Enoxaparin 40 mg Syringe SC SCH (12:59)
[2017-11-03 13:27] LABS: HEMOGLOBIN 11.4 g/dL (12.0-16.0); MEAN CELL VOLUME 79.3 fl (81.0-99.0); MEAN CORPUSCULAR HEMOGLOBIN 24.8 pg (27.0-31.0); MEAN CORPUSCULAR HGB CONC 31.3 g/dL (33.0-37.0); RBC 4.61 Mil/uL (3.80-5.20); WHITE BLOOD COUNT 13.8 K/uL (4.8-10.8)
[2017-11-03 13:49] LABS: BLOOD UREA NITROGEN 14 mg/dl (7-17); CALCIUM 8.5 mg/dL (8.4-10.2); GFR AFRICAN-AMERICAN > 60; GFR NON-AFRICAN AMERICAN 50
--- NOTE | 2017-11-04 01:00 | PN ---
DATE: 11/03/2017 DAILY PROGRESS NOTE SUBJECTIVE: The patient is seen today on 11/03/2017. She is postoperative day #1. No respiratory distress. No chest pain. PHYSICAL EXAMINATION: VITAL SIGNS: Blood pressure 127/80, temperature 98.5, respiratory rate 19 and pulse 100. HEENT: Pupils equal, reactive to light. Normal-appearing mucosa of the conjunctivae, oropharynx, and nasal membrane mucosa. NECK: Supple. No JVD. No carotid bruit. No lymph node. No thyromegaly. CHEST AND LUNGS: Bilateral symmetrical expansion. Good air exchange. No rales, no rhonchi. CARDIOVASCULAR: PMI not localized. S1, S2. No additional sounds. ABDOMEN: Normoactive bowel sounds. No tenderness. No organomegaly. No masses. EXTREMITIES: No cyanosis, no clubbing, no edema. CENTRAL NERVOUS SYSTEM: Alert, awake, oriented x2. No neurological deficit could be appreciated. ASSESSMENT: 1. Status post fall with fracture of left femur status post open reduction internal fixation postoperative day #1. 2. Hypertension, mixed status post anemia of acute blood loss was less status post 2 units of packed RBCs transfusion. PLAN: All the patient's home medications were resumed and will give DVT prophylaxis as per when cleared by orthopedics, physical therapy. Terry Munoz MD
[2017-11-04 06:24] LABS: BASO % 0.3 % (0.0-2.0); EOS # 0.7 K/uL (0.0-0.7); EOS % 5.8 % (0.0-4.0); HEMOGLOBIN 9.9 g/dL (12.0-16.0); LYMPH # 0.8 K/uL (1.0-4.3); LYMPH % 6.6 % (20.0-40.0); MEAN CELL VOLUME 78.6 fl (81.0-99.0); MEAN CORPUSCULAR HGB CONC 31.8 g/dL (33.0-37.0); MEAN PLATELET VOLUME 8.2 fl (7.2-11.7); MONO # 1.8 K/uL (0.0-0.8); MONO % 14.6 % (0.0-10.0); NEUT # 8.8 K/uL (1.8-7.0); NEUT % 72.7 % (50.0-75.0); PLATELET COUNT 173 K/uL (130-400); RBC 3.95 Mil/uL (3.80-5.20)
[2017-11-04 07:08] LABS: ALB/GLOB RATIO 0.9 (1.0-2.1); ALBUMIN 2.7 g/dL (3.5-5.0); ALT/SGPT 30 U/L (9-52); AST/SGOT 39 U/L (14-36); BLOOD UREA NITROGEN 16 mg/dl (7-17); GFR AFRICAN-AMERICAN > 60; GFR NON-AFRICAN AMERICAN 50
[2017-11-04 08:04] VITALS: RESP 18; TEMP 98.6; O2SAT 96
--- NOTE | 2017-11-04 08:20 | CP.PCM.PN ---
Subjective - Date & Time of Evaluation Date of Evaluation: 11/04/17 Time of Evaluation: 08:15 - Subjective Subjective: 67 y/o female with PMHx of Arthritis, Diabetes, Deep Vein Thrombosis (left upper arm), HTN, Rheumatoid Arthritis seen at bedside for right lower leg venous stasis ulceration. Patient is AAO x 3 and NAD at time of visit resting comfortably in bed. Denies any new pedal complaints at this time. States that her left hip surgery went well without incident. Denies recent N/V/F/C/CP/SOB/D/ posterior calf pain when squeezed Objective - Vital Signs/Intake and Output Vital Signs (last 24 hours): Temp Pulse Resp BP Pulse Ox 98.6 F 100 H 18 131/85 96 11/04/17 08:02 11/04/17 08:02 11/04/17 08:02 11/04/17 08:02 11/04/17 08:02 - Medications Medications: Current Medications Brimonidine Tartrate (Alphagan 0.2% Opht) 1 drop OU DAILY [facility] Last Admin: 11/03/17 09:09 Dose: 1 drop Diphenhydramine HCl (Benadryl) 25 mg PO DAILY [facility] Last Admin: 11/03/17 09:08 Dose: 25 mg Doxycycline Hyclate (Doryx) 100 mg PO HS [facility] PRN Reason: Protocol Last Admin: 11/03/17 22:03 Dose: 100 mg Enoxaparin Sodium (Lovenox) 40 mg SC DAILY [facility] PRN Reason: Protocol Last Admin: 11/03/17 12:59 Dose: 40 mg Furosemide (Lasix) 40 mg PO DAILY [facility] Last Admin: 11/03/17 17:17 Dose: 40 mg Gabapentin (Neurontin) 300 mg PO TID [facility] Last Admin: 11/03/17 17:12 Dose: 300 mg Hydromorphone HCl (Dilaudid) 0.5 mg IVP Q4 PRN PRN Reason: Pain, severe (8-10) Last Admin: 11/04/17 06:22 Dose: 0.5 mg Latanoprost (Xalatan Opht) 1 drop OU DAILY [facility] Last Admin: 11/03/17 09:09 Dose: 1 drop Losartan Potassium (Cozaar) 100 mg PO DAILY [facility] Last Admin: 11/03/17 09:08 Dose: 100 mg Magnesium Hydroxide (Milk Of Magnesia) 30 ml PO QID PRN PRN Reason: Constipation Last Admin: 11/01/17 10:33 Dose: 30 ml Multivitamins/Minerals (Therapeutic-M Tab) 1 tab PO DAILY [facility] Last Admin: 11/03/17 09:09 Dose: 1 tab Ondansetron HCl (Zofran Inj) 8 mg IVP Q4 PRN PRN Reason: Nausea/Vomiting Last Admin: 11/02/17 21:50 Dose: 8 mg Pantoprazole Sodium (Protonix Ec Tab) 40 mg PO DAILY [facility] Last Admin: 11/03/17 09:08 Dose: 40 mg Pravastatin Sodium (Pravachol) 40 mg PO DAILY [facility] Last Admin: 11/03/17 09:09 Dose: 40 mg Zolpidem Tartrate (Ambien) 5 mg PO HS PRN PRN Reason: Insomnia Last Admin: 11/03/17 00:14 Dose: 5 mg - Labs Labs: 11/04/17 05:35 11/04/17 05:35 PT 11.4 Seconds (9.8-13.1) 11/02/17 05:55 INR 1.0 (0.9-1.2) 11/02/17 05:55 APTT 37.0 Seconds (25.6-37.1) 11/02/17 05:55 - Constitutional Appears: Well, Non-toxic, No Acute Distress - Extremities Exam Additional comments: RLE focused exam Vasc: DP/PT pulses palpable 1/4. Temperature gradient warm to warm. CFT < 3 seconds to all digits. Pitting edema noted Neuro: Protective sensation grossly intact B/L Derm: Venous stasis ulceration noted to right lateral leg measuring roughly 5 cm x 3.5 cm x 0.1 cm. Wound base is 90% granular and 10% fibrotic. Mild serous draiange noted. No erythema, no abscess, no streaking, no undermining, no tunneling, no maceration, xerosis, abnormal pigmentation or abnormal growths noted at this time. No probe to bone. Wound is clinically uninfected. MSK: tenderness to palpation to ulcer site, minimal - Neurological Exam Neurological Exam: Alert, Awake, Oriented x3 - Psychiatric Exam Psychiatric exam: Normal Affect, Normal Mood Assessment and Plan - Assessment and Plan (Free Text) Assessment: 67 year old female seen bedside for right leg venous stasis ulcer-stable Plan: Patient seen and evaluated at bedside Plan discussed with attending Dr. York Afebrile WBC 12.0 Patients leg cleansed with moist towel, lotion and rivas butter Wound cleansed with saline Wound dressed with adaptic, medihoney, gauze, ABD, Unna boot, Coban Patient instructed to inform nurse if she feels dressing is too tight Patient stable from podiatric standpoint Will follow up with Dr. York in wound care center upon discharge from hospital Podiatry will continue to follow while patient in house
[2017-11-04] MEDS: Latanoprost 0.005% Opht SOUTION OU SCH (09:27)
[2017-11-04] MEDS: Brimonidine 0.2% 50 DROP/5 ML BOTTLE OU SCH (09:27)
[2017-11-04] MEDS: Enoxaparin 40 mg Syringe SC SCH (09:28)
[2017-11-04] MEDS: Multivitamin With Minerals Tab PO SCH (09:29)
[2017-11-04] MEDS: Pravastatin Sodium 40 MG TAB PO SCH (09:29)
[2017-11-04] MEDS: Pantoprazole 40 mg EC Tab PO SCH (09:29)
--- NOTE | 2017-11-04 09:51 | CP.PCM.PN ---
Subjective - Date & Time of Evaluation Date of Evaluation: 11/04/17 Time of Evaluation: 09:00 - Subjective Subjective: NO CHEST PAIN OR SOB Objective - Vital Signs/Intake and Output Vital Signs (last 24 hours): Temp Pulse Resp BP Pulse Ox 98.6 F 100 H 18 135/85 96 11/04/17 08:02 11/04/17 09:27 11/04/17 08:02 11/04/17 09:28 11/04/17 08:02 - Medications Medications: Current Medications Brimonidine Tartrate (Alphagan 0.2% Opht) 1 drop OU DAILY [facility] Last Admin: 11/04/17 09:27 Dose: 1 drop Diphenhydramine HCl (Benadryl) 25 mg PO DAILY [facility] Last Admin: 11/04/17 09:27 Dose: 25 mg Doxycycline Hyclate (Doryx) 100 mg PO HS [facility] PRN Reason: Protocol Last Admin: 11/03/17 22:03 Dose: 100 mg Enoxaparin Sodium (Lovenox) 40 mg SC DAILY [facility] PRN Reason: Protocol Last Admin: 11/04/17 09:28 Dose: 40 mg Furosemide (Lasix) 40 mg PO DAILY [facility] Last Admin: 11/04/17 09:28 Dose: 40 mg Gabapentin (Neurontin) 300 mg PO TID [facility] Last Admin: 11/04/17 09:28 Dose: 300 mg Hydromorphone HCl (Dilaudid) 0.5 mg IVP Q4 PRN PRN Reason: Pain, severe (8-10) Last Admin: 11/04/17 06:22 Dose: 0.5 mg Latanoprost (Xalatan Opht) 1 drop OU DAILY [facility] Last Admin: 11/04/17 09:27 Dose: 1 drop Losartan Potassium (Cozaar) 100 mg PO DAILY [facility] Last Admin: 11/04/17 09:27 Dose: 100 mg Magnesium Hydroxide (Milk Of Magnesia) 30 ml PO QID PRN PRN Reason: Constipation Last Admin: 11/01/17 10:33 Dose: 30 ml Multivitamins/Minerals (Therapeutic-M Tab) 1 tab PO DAILY [facility] Last Admin: 11/04/17 09:29 Dose: 1 tab Ondansetron HCl (Zofran Inj) 8 mg IVP Q4 PRN PRN Reason: Nausea/Vomiting Last Admin: 11/02/17 21:50 Dose: 8 mg Pantoprazole Sodium (Protonix Ec Tab) 40 mg PO DAILY [facility] Last Admin: 11/04/17 09:29 Dose: 40 mg Pravastatin Sodium (Pravachol) 40 mg PO DAILY [facility] Last Admin: 11/04/17 09:29 Dose: 40 mg Zolpidem Tartrate (Ambien) 5 mg PO HS PRN PRN Reason: Insomnia Last Admin: 11/03/17 00:14 Dose: 5 mg - Labs Labs: 11/04/17 05:35 11/04/17 05:35 PT 11.4 Seconds (9.8-13.1) 11/02/17 05:55 INR 1.0 (0.9-1.2) 11/02/17 05:55 APTT 37.0 Seconds (25.6-37.1) 11/02/17 05:55 - Respiratory Exam Respiratory Exam: Clear to Ausculation Bilateral - Cardiovascular Exam Cardiovascular Exam: +S1, +S2 Assessment and Plan - Assessment and Plan (Free Text) Assessment: LEFT THR FOR FALL AND FRACTURE HYPERTENSION HYPERLIPIDEMIA Plan: CONTINUE LOSARTAN, FUROSEMIDE, PRAVASTATIN AND LOVENOX FOR REHAB
[2017-11-04 11:00] LABS: ANISOCYTOSIS MODERATE; BANDS 1 % (0-2); EOSINOPHIL 6 % (0-7); HYPOCHROMIC SLIGHT; LYMPHOCYTE 6 % (20-50); MICROCYTOSIS SLIGHT; MONOCYTE 8 % (0-10); MYELOCYTE 1 % (0-0); NEUTROPHIL 78 % (42-75); PLATELET ESTIMATE NORMAL (NORMAL); TOTAL CELLS COUNTED 100
[2017-11-04] MEDS: Magnesium Hydroxide Susp 30 ml UD PO PRN (13:08)
--- NOTE | 2017-11-04 14:33 | CP.PCM.PN ---
Subjective - Date & Time of Evaluation Date of Evaluation: 11/04/17 Time of Evaluation: 14:31 - Subjective Subjective: Patient states pain in hip is controlled. Denies CP/SOB/dizziness. Denies numbness/tingling. Objective - Vital Signs/Intake and Output Vital Signs (last 24 hours): Temp Pulse Resp BP Pulse Ox 98.6 F 100 H 18 131/85 96 11/04/17 12:22 11/04/17 12:22 11/04/17 12:22 11/04/17 12:22 11/04/17 12:22 - Medications Medications: Current Medications Brimonidine Tartrate (Alphagan 0.2% Opht) 1 drop OU DAILY [facility] Last Admin: 11/04/17 09:27 Dose: 1 drop Diphenhydramine HCl (Benadryl) 25 mg PO DAILY [facility] Last Admin: 11/04/17 09:27 Dose: 25 mg Doxycycline Hyclate (Doryx) 100 mg PO HS [facility] PRN Reason: Protocol Last Admin: 11/03/17 22:03 Dose: 100 mg Enoxaparin Sodium (Lovenox) 40 mg SC DAILY [facility] PRN Reason: Protocol Last Admin: 11/04/17 09:28 Dose: 40 mg Gabapentin (Neurontin) 300 mg PO TID [facility] Last Admin: 11/04/17 09:28 Dose: 300 mg Hydromorphone HCl (Dilaudid) 0.5 mg IVP Q4 PRN PRN Reason: Pain, severe (8-10) Last Admin: 11/04/17 13:03 Dose: 0.5 mg Latanoprost (Xalatan Opht) 1 drop OU DAILY [facility] Last Admin: 11/04/17 09:27 Dose: 1 drop Losartan Potassium (Cozaar) 100 mg PO DAILY [facility] Last Admin: 11/04/17 09:27 Dose: 100 mg Magnesium Hydroxide (Milk Of Magnesia) 30 ml PO QID PRN PRN Reason: Constipation Last Admin: 11/04/17 13:08 Dose: 30 ml Multivitamins/Minerals (Therapeutic-M Tab) 1 tab PO DAILY [facility] Last Admin: 11/04/17 09:29 Dose: 1 tab Ondansetron HCl (Zofran Inj) 8 mg IVP Q4 PRN PRN Reason: Nausea/Vomiting Last Admin: 11/02/17 21:50 Dose: 8 mg Pantoprazole Sodium (Protonix Ec Tab) 40 mg PO DAILY [facility] Last Admin: 11/04/17 09:29 Dose: 40 mg Pravastatin Sodium (Pravachol) 40 mg PO DAILY [facility] Last Admin: 11/04/17 09:29 Dose: 40 mg Zolpidem Tartrate (Ambien) 5 mg PO HS PRN PRN Reason: Insomnia Last Admin: 11/03/17 00:14 Dose: 5 mg - Labs Labs: 11/04/17 05:35 11/04/17 05:35 PT 11.4 Seconds (9.8-13.1) 11/02/17 05:55 INR 1.0 (0.9-1.2) 11/02/17 05:55 APTT 37.0 Seconds (25.6-37.1) 11/02/17 05:55 - Extremities Exam Additional comments: +ROM ankl;e/toes, sensation intact, +Dp/PT pulses calves soft NT neg homans, dressing changed, no erythema, scant serous drainage, mild ecchymosis thigh soft Assessment and Plan (1) Hip fracture, left Assessment & Plan: POD#2 s/p left THR -orthopedically stable for transfer to rehab -PT/OT -dressing change left hip daily -VTE proph -f/u 2 weeks, call for appt -d/w Dr. Rinaldi, agrees with above Status: Acute
[2017-11-04 16:32] VITALS: BP 123/78; PULSE 103
--- NOTE | 2017-11-05 05:39 | DS ---
REASON FOR ADMISSION: This is a 67-year-old female who was admitted after a fall with fracture of the left femur. COURSE OF HOSPITALIZATION: The patient was admitted to regular floor and she had an orthopedic consultation done by Dr. Rinaldi. The patient had cardiology clearance by Dr. Anders and the patient underwent open reduction and internal fixation of the left femur. The patient did well and postoperative course was uneventful and the patient was discharged to subacute rehabilitation after starting physical therapy. FINAL DIAGNOSES: 1. Fall. 2. Fracture of left femur. 3. Hypertension. [facility] MD Alexander
== END 2017-11-04 16:55 | DRG 470 ==
LOC: H.ER 14:30 → H.ERHOLD 17:38 → H.MEDSURG1 22:28
PROVIDERS: ADMIT Internal Medicine; ATTEND Internal Medicine
PROC: 30233N1 Transfusion of Nonautologous Red Blood Cells into Peripheral Vein, Percutaneous Approach (ICD-10-PCS; principal; 2017-10-30)
PROC: 0SRB0JZ Replacement of Left Hip Joint with Synthetic Substitute, Open Approach (ICD-10-PCS; 2017-11-02)
PROC: 0SBB0ZZ Excision of Left Hip Joint, Open Approach (ICD-10-PCS; 2017-11-02)
PROC: 8E0YXBZ Computer Assisted Procedure of Lower Extremity (ICD-10-PCS; 2017-11-02)
DX: S72.032A Displaced midcervical fracture of left femur, initial encounter for closed fracture (principal); M06.9 Rheumatoid arthritis, unspecified; D62 Acute posthemorrhagic anemia; L97.919 Non-pressure chronic ulcer of unspecified part of right lower leg with unspecified severity; D50.9 Iron deficiency anemia, unspecified; E78.5 Hyperlipidemia, unspecified; I10 Essential (primary) hypertension; Z88.0 Allergy status to penicillin; W18.30XA Fall on same level, unspecified, initial encounter; Y93.9 Activity, unspecified; Y92.009 Unspecified place in unspecified non-institutional (private) residence as the place of occurrence of the external cause; Z88.2 Allergy status to sulfonamides; Z91.013 Allergy to seafood; Z86.718 Personal history of other venous thrombosis and embolism; Z96.653 Presence of artificial knee joint, bilateral; M16.12 Unilateral primary osteoarthritis, left hip; H40.9 Unspecified glaucoma; K59.00 Constipation, unspecified; E78.00 Pure hypercholesterolemia, unspecified; I87.8 Other specified disorders of veins; S72.012A Unspecified intracapsular fracture of left femur, initial encounter for closed fracture; I73.9 Peripheral vascular disease, unspecified; M65.9 Synovitis and tenosynovitis, unspecified

== ENCOUNTER 2018-03-30 15:02 | Observation (INO) | payer MEDICARE, SELFPAY ==
[2018-03-30 15:02] VITALS: BMI 27.2
--- NOTE | 2018-03-30 16:24 | ED PDOC ---
Syncope/Near Syncope/Dizziness Time Seen by Provider: 03/30/18 15:20 Chief Complaint (Nursing): Dizziness/Lightheaded Chief Complaint (Provider): Syncope History Per: Patient History/Exam Limitations: no limitations Onset/Duration Of Symptoms: Days Current Symptoms Are (Timing): Still Present Additional Complaint(s): 67 year old female with a PMHx of hypertension, rheumatoid arthritis, PVD, and DVT presents to the ED complaining of syncope. Reports she was [facility] and she blacked out. She fell on the ground and hit her head. There is bleeding from the wound on her eyebrow and she felt light headedness afterwards. Patient states she did not feel dizzy, have chest pain, or shortness of breath prior to fainting. Also complaints of swelling on left leg chronically for 1 year. Over the last 3 weeks, there is ooze coming out from the injection site where the fluid was taken out of the knee. Denies fever, chills, numbness or tingling. PMD: Diya Mabry Past Medical History Reviewed: Historical Data, Nursing Documentation, Vital Signs Vital Signs: Last Vital Signs Temp 98.6 F 03/30/18 15:04 Pulse 76 03/30/18 15:04 Resp 18 03/30/18 15:04 BP 141/86 03/30/18 15:04 Pulse Ox 100 03/30/18 15:04 - Medical History PMH: Arthritis, Diabetes, Deep Vein Thrombosis (left upper arm), HTN, Rheumatoid Arthritis Denies: Chronic Kidney Disease - Surgical History Other surgeries: left hip replacement, port-a-cath - Family History Family History: States: Unknown Family Hx - Social History Current smoker - smoking cessation education provided: No - Immunization History Hx Tetanus Toxoid Vaccination: Yes Hx Influenza Vaccination: Yes Hx Pneumococcal Vaccination: Yes - Home Medications Home Medications: Ambulatory Orders Medication Instructions Recorded Gabapentin [Neurontin] 300 mg PO Q8 12/05/15 Zolpidem [Ambien] 10 mg PO HS 01/16/16 Losartan [Cozaar] 100 mg PO DAILY 02/01/16 Latanoprost 0.005% Opht [Xalatan 1 drop OU HS 05/26/17 Opht] Pravastatin Sodium [Pravachol] 40 mg PO DAILY 10/29/17 Ferrous Sulfate [Feosol] 324 mg PO TID 12/15/17 Furosemide [Lasix] 40 mg PO DAILY 12/15/17 Budesonide/Formoterol Fumarate 2 puff IH Q12 03/30/18 [Symbicort 160-4.5 Mcg Inhaler] Cyclobenzaprine [Flexeril] 10 mg PO HS 03/30/18 Fluticasone Nasal [Flonase] 2 spray NOAH DAILY PRN 03/30/18 Levobunolol HCl [Levobunolol HCl] 1 drop EACHEYE Q12 03/30/18 Multivit-Min/FA/Lycopen/Lutein 1 tab PO DAILY 03/30/18 [Centrum Silver Tablet] Naproxen [Naprosyn] 500 mg PO Q12 PRN 03/30/18 Omeprazole [Omeprazole] 40 mg PO DAILY 03/30/18 Potassium Chloride [Klor-Con 10] 10 meq PO DAILY 03/30/18 Sulfamethoxazole/Trimethoprim 1 tab PO Q12 03/30/18 [Bactrim DS Tab] - Allergies Allergies/Adverse Reactions: Allergies Allergy/AdvReac Type Severity Reaction Status Date / Time amoxicillin Allergy RASH Verified 03/30/18 15:04 Penicillins Allergy RASH Verified 03/30/18 15:04 shellfish derived Allergy PAIN Verified 03/30/18 15:04 Sulfa (Sulfonamide Allergy RASH Verified 03/30/18 15:04 Antibiotics) Review of Systems ROS Statement: Except As Marked, All Systems Reviewed And Found Negative (As per HPI, otherwise negative) Constitutional: Negative for: Fever, Chills Cardiovascular: Negative for: Chest Pain Respiratory: Negative for: Shortness of Breath Musculoskeletal: Positive for: Other (swelling to left leg) Neurological: Positive for: Other (syncope). Negative for: Numbness, Dizziness Physical Exam - Reviewed Nursing Documentation Reviewed: Yes Vital Signs Reviewed: Yes - Physical Exam Appears: Positive for: Non-toxic, No Acute Distress (tired appearing) Head Exam: Positive for: ATRAUMATIC, NORMAL INSPECTION, NORMOCEPHALIC Skin: Positive for: Warm, Dry Eye Exam: Positive for: Other (2cm linear superficial laceration on left lateral eyebrow, soft hematoma below) Neck: Positive for: Painless ROM, Supple Cardiovascular/Chest: Positive for: Regular Rate, Rhythm. Negative for: Murmur Respiratory: Positive for: Normal Breath Sounds. Negative for: Respiratory Distress Gastrointestinal/Abdominal: Positive for: Soft. Negative for: Tenderness Extremity: Positive for: Pedal Edema (left leg is greater than right leg. Left leg diffusely edematous), Other (right leg has pressure dressing applied by wound care. Lateral LEFT knee has 3 puncture wounds and wounds and serosanguinous from most superior wound ) Lymphatic: Negative for: Adenopathy Neurologic/Psych: Positive for: Alert, Oriented (x3). Negative for: Motor/ Sensory Deficits - Laboratory Results Result Diagrams: 03/30/18 17:13 03/30/18 17:13 - ECG O2 Sat by Pulse Oximetry: 100 (RA) Pulse Ox Interpretation: Normal Medical Decision Making Medical Decision Making: Time: 1547 Initial Impression: syncope and acute on chronic edema Differential Diagnosis includes but is not limited to: anemia, electrolyte abnormalities, heatstroke, arrhythmia, DVT, arthritis, effusion Initial Plan: --BBK Type and Screen --Head w/o Contrast CT --EKG --CMP --Magnesium --Phosphorous --Troponin I --ED Urine dipstick --CBC w/ Differential --PTT --Prothrombin Time --Glucose, POC Routine --Blood Culture --Wound Culture --IV Insertion --Duplex Lower Extremity Vein Left [US] --Reevaluation Accession No. : [id number] Patient Name / ID : DIONE RUFF / [id number] Exam Date : 03/30/2018 16:18:14 ( Approved ) Study Comment : Sex / Age : F / 67Y Creator : Nergito Park MD Dictator : Negrito Park MD Dietary Supervisor : Volunteer Fire Fighter : Negrito Park MD Approver2 : Report Date : 03/30/2018 17:04:42 My Comment : PROCEDURE: CT HEAD WITHOUT CONTRAST. HISTORY: Posttraumatic syncopal event COMPARISON: 02/01/2016. CT head TECHNIQUE: Axial computed tomography images were obtained through the head/brain without intravenous contrast. Coronal and sagittal reconstructed images. Radiation dose: Total exam DLP = 783.49 mGy-cm. This CT exam was performed using one or more of the following dose reduction techniques: Automated exposure control, adjustment of the mA and/or kV according to patient size, and/or use of iterative reconstruction technique. FINDINGS: HEMORRHAGE: No intracranial hemorrhage. BRAIN: No mass effect or edema. No atrophy or chronic microvascular ischemic changes. VENTRICLES: Unremarkable. No hydrocephalus. CALVARIUM: Unremarkable. PARANASAL SINUSES: Unremarkable as visualized. No significant inflammatory changes. MASTOID AIR CELLS: Unremarkable as visualized. No inflammatory changes. OTHER FINDINGS: None. IMPRESSION: No acute intracranial abnormalities. No significant findings to account for the clinical presentation. No significant interval change compared to the prior examination(s). Accession No. : [id number] Patient Name / ID : DIONE RUFF / [id number] Exam Date : 03/30/2018 16:21:39 ( Approved ) Study Comment : Sex / Age : F / 67Y Creator : Negrito Park MD Dictator : Negrito Park MD Dietary Supervisor : Volunteer Fire Fighter : Negrito Park MD Approver2 : Report Date : 03/30/2018 17:07:35 My Comment : HISTORY: LEFT leg swelling . PRIORS: None. FINDINGS: 2-D, color and duplex Doppler analysis of the lower extremity venous circulation using routine protocol from the femoral veins through the popliteal veins. Venous compressibility: Normal. Flow and augmentation patterns: Normal. Visualized veins upper third of calf: Normal. Ray cyst: None. IMPRESSION: No sonographic or Doppler evidence for DVT in left lower extremity. DW pt findings and plan of care. 545p DW Dr Munoz admitting for Dr Mabry PMD. [facility] Podiatry resident for Dr York Wound care Scribe Attestation: Documented by Elliot Craig, acting as a scribe for Yuko Valverde MD Provider Scribe Attestation: All medical record entries made by the Scribe were at my direction and personally dictated by me. I have reviewed the chart and agree that the record accurately reflects my personal performance of the history, physical exam, medical decision making, and the department course for this patient. I have also personally directed, reviewed, and agree with the discharge instructions and disposition. Disposition - Clinical Impression Clinical Impression: Syncope, Head injury, Eyebrow laceration Counseled Patient/Family Regarding: Studies Performed, Diagnosis - Disposition Disposition Time: 17:30 Condition: FAIR - Pt Status Changed To: Hospital Disposition Of: Observation - POA Present On Arrival: Falls Or Trauma, Deep Vein Thrombosis / PE
--- NOTE | 2018-03-30 17:06 | CT ---
PROCEDURE: CT HEAD WITHOUT CONTRAST. HISTORY: Posttraumatic syncopal event COMPARISON: 02/01/2016. CT head TECHNIQUE: Axial computed tomography images were obtained through the head/brain without intravenous contrast. Coronal and sagittal reconstructed images. Radiation dose: Total exam DLP = 783.49 mGy-cm. This CT exam was performed using one or more of the following dose reduction techniques: Automated exposure control, adjustment of the mA and/or kV according to patient size, and/or use of iterative reconstruction technique. FINDINGS: HEMORRHAGE: No intracranial hemorrhage. BRAIN: No mass effect or edema. No atrophy or chronic microvascular ischemic changes. VENTRICLES: Unremarkable. No hydrocephalus. CALVARIUM: Unremarkable. PARANASAL SINUSES: Unremarkable as visualized. No significant inflammatory changes. MASTOID AIR CELLS: Unremarkable as visualized. No inflammatory changes. OTHER FINDINGS: None. IMPRESSION: No acute intracranial abnormalities. No significant findings to account for the clinical presentation. No significant interval change compared to the prior examination(s).
--- NOTE | 2018-03-30 17:09 | US ---
HISTORY: LEFT leg swelling . PRIORS: None. FINDINGS: 2-D, color and duplex Doppler analysis of the lower extremity venous circulation using routine protocol from the femoral veins through the popliteal veins. Venous compressibility: Normal. Flow and augmentation patterns: Normal. Visualized veins upper third of calf: Normal. Ray cyst: None. IMPRESSION: No sonographic or Doppler evidence for DVT in left lower extremity.
[2018-03-30 17:30] LABS: BASO % 0.6 % (0.0-2.0); EOS # 0.2 K/uL (0.0-0.7); EOS % 3.9 % (0.0-4.0); HEMOGLOBIN 10.3 g/dL (12.0-16.0); LYMPH # 0.6 K/uL (1.0-4.3); LYMPH % 10.2 % (20.0-40.0); MEAN CELL VOLUME 82.7 fl (81.0-99.0); MEAN CORPUSCULAR HEMOGLOBIN 25.3 pg (27.0-31.0); MEAN CORPUSCULAR HGB CONC 30.6 g/dL (33.0-37.0); MEAN PLATELET VOLUME 7.8 fl (7.2-11.7); MONO # 0.9 K/uL (0.0-0.8); MONO % 14.6 % (0.0-10.0); NEUT # 4.2 K/uL (1.8-7.0); NEUT % 70.7 % (50.0-75.0); NRBC % 0.1 % (0.0-0.0); RBC 4.07 Mil/uL (3.80-5.20); RED CELL DISTRIBUTION WIDTH 16.7 % (11.5-14.5)
[2018-03-30 17:32] LABS: ALB/GLOB RATIO 0.9 (1.0-2.1); ALBUMIN 3.3 g/dL (3.5-5.0); ALT/SGPT 19 U/L (9-52); AST/SGOT 22 U/L (14-36); BLOOD UREA NITROGEN 21 mg/dl (7-17); CALCIUM 8.5 mg/dL (8.4-10.2); GFR AFRICAN-AMERICAN 55; GFR NON-AFRICAN AMERICAN 45
[2018-03-30 18:10] LABS: PARTIAL THROMBOPLASTIN TIME 36.5 Seconds (25.6-37.1); PROTHROMBIN TIME 11.1 Seconds (9.8-13.1)
--- NOTE | 2018-03-30 18:20 | RAD ---
HISTORY: SYNCOPE COMPARISON: Chest radiograph dated 10/29/2017. FINDINGS: LUNGS: No active pulmonary disease. PLEURA: No significant pleural effusion identified, no pneumothorax apparent. CARDIOVASCULAR: Atherosclerotic aortic calcifications. Cardiomediastinal silhouette stably enlarged. OSSEOUS STRUCTURES: Unchanged. VISUALIZED UPPER ABDOMEN: Normal. OTHER FINDINGS: Right internal jugular access chest port with catheter tip in the distal SVC. IMPRESSION: No active disease.
[2018-03-30] MEDS ORDERED: Acetaminophen-Codeine 300/30 mg Tab PO STA (18:32)
[2018-03-30] MEDS ORDERED: Acetaminophen-Codeine 300/30 mg Tab ONE (18:37)
--- NOTE | 2018-03-30 19:01 | CP.PCM.CON ---
History of Present Illness - History of Present Illness History of Present Illness: Podiatry Consult note for attending, Dr. Schaffer 67 year old female with a PMHx of hypertension, rheumatoid arthritis, PVD, and DVT presents to the ED complaining of syncope. Podiatry was consulted for a stable, chronic right lateral leg ulceration. Patient sees Dr. Schaffer in the wound care clinic every Thursday and Thursday to have the Unna Boot placed. Patient last had the UnnaBoot dressing put on Thursday03/26/18. Patient states she was due for another dressing change today, however, came to the ED instead due to a episode of syncope. Patient denies any pain or other pedal complaints. Patient denies fever or chills. PMHx: HTN, rheumatoid arthritis, PVD, DVT, Syncope PSHx: Left Hip Replacement, port-acath Shx: current smoker Allergies: Amoxicillin, Penicillin, Shellfish, Sulfa drugs Review of Systems - Review of Systems All systems: reviewed and no additional remarkable complaints except Review of Systems: As per HPI Past Patient History - Past Medical History & Family History Past Medical History?: Yes - Past Social History Smoking Status: Never Smoked - CARDIAC Hx Hypertension: Yes - PULMONARY Hx Respiratory Disorders: No - NEUROLOGICAL Hx Neurological Disorder: No - HEENT Hx HEENT Problems: No - RENAL Hx Chronic Kidney Disease: No - ENDOCRINE/METABOLIC Hx Endocrine Disorders: No - HEMATOLOGICAL/ONCOLOGICAL Hx Blood Disorders: No Other/Comment: R ankle blood clots 2012 - INTEGUMENTARY Hx Dermatological Problems: Yes Hx Cellulitis: Yes Other/Comment: WOUND ULCER R leg - MUSCULOSKELETAL/RHEUMATOLOGICAL Hx Arthritis: Yes Hx Rheumatoid Arthritis: Yes - GASTROINTESTINAL Hx Gastrointestinal Disorders: No - GENITOURINARY/GYNECOLOGICAL Hx Genitourinary Disorders: No - PSYCHIATRIC Hx Psychophysiologic Disorder: No Hx Emotional Abuse: No Hx Physical Abuse: No Hx Substance Use: No - SURGICAL HISTORY Hx Joint Replacement: Yes (TOTAL RIGHT KNEE REPLACEMENT 2010) Hx Orthopedic Surgery: Yes (left knee replaced) Other/Comment: SX FOR BLOOD CLOTS RT ANKLE - ANESTHESIA Hx Anesthesia: Yes Hx Anesthesia Reactions: No Hx Malignant Hyperthermia: No Meds Allergies/Adverse Reactions: Allergies Allergy/AdvReac Type Severity Reaction Status Date / Time amoxicillin Allergy RASH Verified 03/30/18 15:04 Penicillins Allergy RASH Verified 03/30/18 15:04 shellfish derived Allergy PAIN Verified 03/30/18 15:04 Sulfa (Sulfonamide Allergy RASH Verified 03/30/18 15:04 Antibiotics) Physical Exam - Extremities Exam Additional comments: Right Lower Extremity- dressing left intact, CFT less than 3 seconds X 5, patient able to wiggle toes Left Lower Extremity VASC: DP and PT faintly palpable, CFT less than 3 seconds X 5, TG warm to cool, non-pitting noted to the dorsum of the left foot NEURO: grossly intact DERM: no open wounds, no clinical signs of infection MSK: no pain on palpation, ROM within normal limits Results - Vital Signs Recent Vital Signs: Last Vital Signs Temp 98.6 F 03/30/18 15:04 Pulse 76 03/30/18 15:04 Resp 18 03/30/18 15:04 BP 141/86 03/30/18 15:04 Pulse Ox 100 03/30/18 17:53 - Labs Result Diagrams: 03/30/18 17:13 03/30/18 17:13 Labs: Laboratory Results - last 24 hr 03/30/18 03/30/18 03/30/18 15:17 17:13 17:13 WBC 6.0 RBC 4.07 Hgb 10.3 L Hct 33.6 L MCV 82.7 D MCH 25.3 L MCHC 30.6 L RDW 16.7 H Plt Count 266 MPV 7.8 Neut % (Auto) 70.7 Lymph % (Auto) 10.2 L Stafford % (Auto) 14.6 H Eos % (Auto) 3.9 Baso % (Auto) 0.6 Neut # (Auto) 4.2 Lymph # (Auto) 0.6 L Stafford # (Auto) 0.9 H Eos # (Auto) 0.2 Baso # (Auto) 0.0 PT INR APTT Sodium 137 Potassium 3.9 Chloride 102 Carbon Dioxide 29 Anion Gap 10 BUN 21 H Creatinine 1.2 Est GFR ( Amer) 55 Est GFR (Non-Af Amer) 45 POC Glucose (mg/dL) 89 Random Glucose 105 Calcium 8.5 Phosphorus 3.6 Magnesium 2.0 Total Bilirubin 0.2 AST 22 ALT 19 Alkaline Phosphatase 82 Troponin I < 0.0120 Total Protein 6.9 Albumin 3.3 L D Globulin 3.5 Albumin/Globulin Ratio 0.9 L 03/30/18 17:37 WBC RBC Hgb Hct MCV MCH MCHC RDW Plt Count MPV Neut % (Auto) Lymph % (Auto) Stafford % (Auto) Eos % (Auto) Baso % (Auto) Neut # (Auto) Lymph # (Auto) Stafford # (Auto) Eos # (Auto) Baso # (Auto) PT 11.1 INR 1.0 APTT 36.5 Sodium Potassium Chloride Carbon Dioxide Anion Gap BUN Creatinine Est GFR ( Amer) Est GFR (Non-Af Amer) POC Glucose (mg/dL) Random Glucose Calcium Phosphorus Magnesium Total Bilirubin AST ALT Alkaline Phosphatase Troponin I Total Protein Albumin Globulin Albumin/Globulin Ratio Assessment & Plan - Assessment and Plan (Free Text) Assessment: 67 year old female with a PMHx of hypertension, rheumatoid arthritis, PVD, and DVT presents to the ED complaining of syncope. Podiatry was consulted for a stable, chronic right lateral leg ulceration. Plan: Patient seen and evaluated at bedside Plan discussed with attending Dr. Schaffer Patient declined dressing change in the ED as she would like the same dressing to be applied Patient UnnaBoot dressing left intact Podiatry will see the patient on the floor, and do the appropriate dressing change on 03/31/18 All patient questions answered Thank you for the consult Podiatry will follow patient while she is in-house
[2018-03-31] MEDS ORDERED: Naproxen 500 MG TAB PO PRN (00:42)
[2018-03-31] MEDS ORDERED: Acetaminophen-Codeine 300/30 mg Tab PO ONE (04:56)
[2018-03-31 08:21] VITALS: BP 127/72; PULSE 79; RESP 20; TEMP 98.3
[2018-03-31] MEDS ORDERED: Patient's Own Med (Ferrous Sulfate [Feosol] 324 MG) PO SCH (09:00)
[2018-03-31] MEDS ORDERED: [UNRECOGNIZED DRUG - OTHER] OU SCH (09:00)
[2018-03-31] MEDS ORDERED: Pantoprazole 40 mg EC Tab PO SCH (09:00)
[2018-03-31] MEDS ORDERED: Potassium Chloride 10 mEq ER Tab PO SCH (09:00)
[2018-03-31] MEDS ORDERED: Multivitamin With Minerals Tab PO SCH (09:00)
[2018-03-31] MEDS ORDERED: Pravastatin Sodium 40 MG TAB PO SCH (09:00)
[2018-03-31] MEDS ORDERED: Fluticasone-Salmeterol 250-50mcg Diskus IH SCH (09:00)
[2018-03-31 14:12] VITALS: O2SAT 100
--- NOTE | 2018-03-31 21:34 | HP ---
HISTORY OF PRESENT ILLNESS: This is a 67-year-old female with history of multiple medical problems including status post right hip replacement, hypertension, left leg ulcer being treated by podiatry, Dr. Bernard. The patient was in her way to wound care center on the day of admission, and she tripped and fell. The patient denied to have any loss of consciousness. The patient had a small wound in the left forehead that was addressed in the emergency room. The denied to have any loss of consciousness. No urinary incontinence or tongue bite. Other review of systems is negative. ALLERGIES: THE PATIENT IS ALLERGIC TO AMOXICILLIN, PENICILLIN, SHELLFISH, AND SULFONAMIDES. PAST MEDICAL HISTORY: As above. SOCIAL HISTORY: The patient denied smoking, EtOH, or substance abuse. FAMILY HISTORY: Noncontributory. MEDICATIONS: Reviewed as per MAR. PHYSICAL EXAMINATION: GENERAL: The patient was in bed, not in any cardiopulmonary distress at the time of this examination. VITAL SIGNS: Blood pressure 127/72, temperature 98.3, respiratory rate 20, and pulse 79. HEENT: Pupils equal and reactive to light. Normal-appearing mucosa of the conjunctivae, oropharynx, and nasal membrane mucosa. NECK: Supple. No JVD. No carotid bruit. No lymph node. No thyromegaly. CHEST AND LUNGS: Bilateral symmetrical expansion. Good air exchange. No rales, no rhonchi. CARDIOVASCULAR SYSTEM: System PMI not localized. S1, S2. No additional sounds. ABDOMEN: Normoactive bowel sounds. No tenderness. No organomegaly. No masses. EXTREMITIES: No cyanosis, no clubbing, no edema. 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 No neurological deficit could be appreciated. ASSESSMENT: 1. Status post fall with injury to the left forehead. 2. Hypertension. 3. History of bronchial asthma. 4. Osteoarthritis. 5. Right leg ulcer, on Unna boot. PLAN: 1. Monitor the patient on telemetry. 2. Wound care as per Podiatry. 3. Resume the patient's home medications. Terry Munoz MD
[2018-03-31] MEDS ORDERED: Latanoprost 0.005% Opht SOUTION OU SCH (22:00)
--- NOTE | 2018-03-31 23:09 | CON ---
DATE: 03/31/2018 CARDIOLOGY CONSULTATION REASON FOR CONSULTATION: Syncopal episode. HISTORY OF PRESENT ILLNESS: The patient is very co-operative in history taking. The patient is 67-year-old female who has history of rheumatoid arthritis, history of bilateral total knee replacement, history of DVT, and history of chronic leg ulcers. She presented because of fall. The patient stated that she tripped because of her shoes, sustained a right eyebrow injury. The patient denies feeling dizziness or passing out, and is unaware of any prior cardiac history. The patient does not recall experiencing palpitation. SOCIAL HISTORY: Nonsmoker. Nondrinker. She lives in a senior citizen home. REVIEW OF SYSTEMS: No nausea or vomiting. No fever or chills MEDICATIONS: Advair one puff every 12 hours, Ambien 10 mg at bedtime, Cozaar 100 mg once a day, Flexeril 10 mg once a day, Flonase 2 sprays p.r.n., heparin 5000 units subcutaneous every 8 hours, Klor-Con 10 mEq once daily, Lasix 40 mg p.o. once a day, gabapentin 300 mg every 8 hours, Protonix 40 mg p.o. once a day, multivitamin one tablet once a day. PAST MEDICAL HISTORY: Hypertension, DVT, bilateral total knee replacement. PHYSICAL EXAMINATION: GENERAL: The patient is an elderly female, who does not appear to be in acute distress. VITAL SIGNS: Blood pressure 127/72, heart rate 79, temperature 98.3, respiratory rate 20. HEENT: A band-aid attached to the left eyebrow injury. NECK: No JVD. CHEST: Bilateral rhonchi. HEART: S1 and S2 regular. ABDOMEN: Soft. EXTREMITIES: A 2 to 3 + pitting edema. Scar of previous bilateral total knee replacement noted. Dressings applied to both legs which appears to be soaked with serous fluid. LABORATORY DATA: Hemoglobin and hematocrit 10.2 and 32.6, white count 6, and platelet count 266,000. PT, INR, and PTT are within normal limits. Sodium 137, potassium 3.9, chloride 102, CO2 of 29, glucose 105, BUN 21, and creatinine 1.2. One set of troponin is negative. EKG revealed normal sinus rhythm at the rate of 74. Echocardiographic study performed in 2016 revealed normal left ventricular size with mild concentric elevation, normal ejection fraction, and mild deviated left atrium with grade 1 abnormal relaxation pattern. Lower extremity venous Doppler, no sonographic evidence of DVT in the left lower extremity. Head CT scan without contrast: no acute intracranial abnormality. No significant findings account for the patient's clinical presentation. ASSESSMENT: 1. Status post fall. 2. History of deep venous thrombosis in the past. 3. Hypertension. 4. Status post bilateral total knee replacement. 5. Consider bilateral leg cellulitis. RECOMMENDATIONS: Continue current Ambien 10 mg once a day, Cozaar 100 mg once a day, Flexeril 10 mg once a day, Flonase 2 sprays p.r.n., subcutaneous heparin 5000 units every 8 hours, Klor-Con 10 mEq once daily, Lasix 40 mg p.o. once a day, naproxen 500 mg p.o. every 12 hours p.r.n, Neurontin 300 mg every 8 hours, Pravachol 40 mg once a day, Protonix 40 mg once a day. Obtain urine for drug screen. Schedule patient for carotid Doppler, and continue telemetry monitoring; however, the patient has made up her mind that she wants to sign against medical advice. The case will be discussed with primary physician, Dr. Munoz. Hussain Webb MD
--- NOTE | 2018-04-01 05:52 | DS ---
REASON FOR ADMISSION: This is a 67-year-old female, who was admitted after a fall and injury to the left forehead. COURSE OF HOSPITALIZATION: The patient was admitted to medical floor after the left forefoot wound was dressed by the emergency room, and had a Steri-Strips on it. The patient's medications were resumed, and the patient was being monitored, observed for 24 hours. The patient has been observed as the history was not clear regarding the fall. The patient signed against medical advice. I explained to her the need for further observation and possible testing but the patient refused and she signed against medical advice. She is fully awake, alert, and oriented x3 and said that she would like to spend 03/31/2018 at home. FINAL DIAGNOSES: 1. Fall with head trauma. 2. Hypertension. 3. Osteoarthritis. 4. Left leg ulcer, on Unna boot. 5. History of bronchial asthma. Daniel MD Alexander
--- NOTE | 2018-04-01 08:22 | CARD ---
APPROVED REPORT EKG Measurement Heart [id number] <Conclusion> Normal sinus rhythm Normal ECG
== END 2018-03-31 12:44 | disposition left against medical advice (07) ==
LOC: H.ER 15:02 → H.ERHOLD 17:49 → H.TEL 23:23
PROVIDERS: ADMIT Internal Medicine; ATTEND Internal Medicine
DX: S09.90XA Unspecified injury of head, initial encounter (principal); I10 Essential (primary) hypertension; J45.909 Unspecified asthma, uncomplicated; M06.9 Rheumatoid arthritis, unspecified; E11.51 Type 2 diabetes mellitus with diabetic peripheral angiopathy without gangrene; Z88.2 Allergy status to sulfonamides; Z88.0 Allergy status to penicillin; Z91.013 Allergy to seafood; Z86.718 Personal history of other venous thrombosis and embolism; F17.200 Nicotine dependence, unspecified, uncomplicated; L97.929 Non-pressure chronic ulcer of unspecified part of left lower leg with unspecified severity; M19.90 Unspecified osteoarthritis, unspecified site; S01.112A Laceration without foreign body of left eyelid and periocular area, initial encounter; W01.0XXA Fall on same level from slipping, tripping and stumbling without subsequent striking against object, initial encounter
CPT/HCPCS: 70450; 71045; 80053; 81025; 82948; 83735; 84100; 84484; 85025; 85610; 85730; 86850; 86900; 87040; 87070; 87149; 87205; 93005; 93971; 96372; 99285; G0378; J1644

== ENCOUNTER 2018-10-04 12:26 | Inpatient (IN) | payer MEDICARE ==
[2018-10-04 12:26] VITALS: BMI 28.4
[2018-10-04] MEDS ORDERED: Morphine 4 MG/ML VIAL IV STA (14:23)
--- NOTE | 2018-10-04 15:06 | CP.PCM.CON ---
History of Present Illness - History of Present Illness History of Present Illness: Podiatry consult note for Dr. Schaffer 68F pmhx of HTN, PVD, DVT, glaucoma and chronic ulceration presents to the ED for venous stasis ulceration on right lower extremity. States that she has had surgery on these ulcerations in the past but they did not take as there was too much drainage. States that she was last seen by Dr. Schaffer last Thursday and had new compressive dressings applied. States that she keeps her dressings clean and dry. She reports some left knee pain today which she states has just started to progress over the past month. States that she had a knee surgery in 2017. Denies N/V/F/C/SOB/CP and has no other acute complaints. PMHx: see above PSHx: left knee and hip surgery, graft harvest, portacath All: PCN, shellfish, sulfa Past Patient History - Past Medical History & Family History Past Medical History?: Yes - Past Social History Smoking Status: Never Smoked - CARDIAC Hx Hypertension: Yes - PULMONARY Hx Respiratory Disorders: No - NEUROLOGICAL Hx Neurological Disorder: No - HEENT Hx HEENT Problems: No - RENAL Hx Chronic Kidney Disease: No - ENDOCRINE/METABOLIC Hx Endocrine Disorders: No - HEMATOLOGICAL/ONCOLOGICAL Hx Blood Disorders: No Hx AIDS: No Hx Human Immunodeficiency Virus (HIV): No - INTEGUMENTARY Hx Dermatological Problems: Yes - MUSCULOSKELETAL/RHEUMATOLOGICAL Hx Arthritis: Yes Hx Rheumatoid Arthritis: Yes - GASTROINTESTINAL Hx Gastrointestinal Disorders: No - GENITOURINARY/GYNECOLOGICAL Hx Genitourinary Disorders: No - PSYCHIATRIC Hx Psychophysiologic Disorder: No Hx Substance Use: No - SURGICAL HISTORY Hx Joint Replacement: Yes (TOTAL RIGHT KNEE REPLACEMENT 2010) Hx Orthopedic Surgery: Yes (left knee replaced) Other/Comment: SX FOR BLOOD CLOTS RT ANKLE - ANESTHESIA Hx Anesthesia: Yes Hx Anesthesia Reactions: No Hx Malignant Hyperthermia: No Meds Allergies/Adverse Reactions: Allergies Allergy/AdvReac Type Severity Reaction Status Date / Time amoxicillin Allergy RASH Verified 08/23/18 13:47 Penicillins Allergy RASH Verified 08/23/18 13:47 shellfish derived Allergy PAIN Verified 08/23/18 13:47 Sulfa (Sulfonamide Allergy RASH Verified 08/23/18 13:47 Antibiotics) Physical Exam - Constitutional Appears: Well, Non-toxic, No Acute Distress - Head Exam Head Exam: ATRAUMATIC, NORMOCEPHALIC - Extremities Exam Additional comments: RLE dressing is clean, dry, intact - left in place Vasc: DP and PT pulses 1/4; cap refill <3 seconds to all digits Neuro: gross and protective sensation intact b/l - Neurological Exam Neurological exam: Alert, Oriented x3 - Psychiatric Exam Psychiatric exam: Normal Affect, Normal Mood Results - Vital Signs Recent Vital Signs: Last Vital Signs Temp 97 F L 10/04/18 13:02 Pulse 82 10/04/18 13:02 Resp 18 10/04/18 13:02 BP 150/75 10/04/18 13:02 Pulse Ox 99 10/04/18 13:02 Assessment & Plan - Assessment and Plan (Free Text) Assessment: 68F with pmhx of PMHx of HTN, PVD, DVT, glaucoma, seen and evaluated in the ED for right lower extremity venous stasis ulceration Plan: Patient seen and evaluated Discussed in detail with Dr. Schaffer Dressing left intact Patient for surgery tomorrow 9:00AM - debridement of ulcer and harvest for graft Maintain NPO after midnight Medical clearance appreciated Patient will f/u with Dr. Schaffer after surgery Podiatry will follow patient while in house Thank you for the consult - Date & Time Date: 10/04/18 Time: 15:12
--- NOTE | 2018-10-04 15:36 | US ---
Date of service: 10/04/2018 HISTORY: Pain. PRIORS: 03/30/2018. FINDINGS: 2-D, color and duplex Doppler analysis of the lower extremity venous circulation using routine protocol from the femoral veins through the popliteal veins. Venous compressibility: Normal. Flow and augmentation patterns: Normal. Visualized veins upper third of calf: Normal. Ray cyst: None. There is an enlarged left inguinal lymph node which measures 3.5 x 1.7 x 1.0 cm. IMPRESSION: No sonographic or Doppler evidence for DVT in left lower extremity. Solitary enlarged left inguinal lymph node which may be infectious, inflammatory or neoplastic in etiology. Clinical follow-up is advised
[2018-10-04] MEDS ORDERED: Morphine 4 MG/ML VIAL ONE (15:42)
--- NOTE | 2018-10-04 15:42 | ED PDOC ---
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 Patient will be receiving a skin graft tomorrow on her right lower extremity. She is also complaints of left leg leg from her knee to left hip. No trauma. PMD: Dr. Mabry Past Medical History Reviewed: Historical Data, Nursing Documentation, Vital Signs Vital Signs: Last Vital Signs Temp 97 F L 10/04/18 13:02 Pulse 82 10/04/18 13:02 Resp 18 10/04/18 13:02 BP 150/75 10/04/18 13:02 Pulse Ox 99 10/04/18 13:02 - Medical History PMH: Arthritis, Diabetes, Deep Vein Thrombosis (left upper arm), HTN, Rheumatoid Arthritis Denies: HIV, Chronic Kidney Disease - Surgical History Surgical History: No Surg Hx - Family History Family History: States: Unknown Family Hx - Immunization History Hx Tetanus Toxoid Vaccination: Yes Hx Influenza Vaccination: Yes Hx Pneumococcal Vaccination: Yes - Home Medications Home Medications: Ambulatory Orders Medication Instructions Recorded Gabapentin [Neurontin] 300 mg PO Q8 12/05/15 Zolpidem [Ambien] 10 mg PO HS PRN 01/16/16 Latanoprost 0.005% Opht [Xalatan 1 drop BOTHEYES HS 05/26/17 Opht] Furosemide [Lasix] 40 mg PO DAILY 12/15/17 Multivit-Min/FA/Lycopen/Lutein 1 tab PO DAILY 03/30/18 [Centrum Silver Tablet] Omeprazole 40 mg PO HS 03/30/18 Potassium Chloride [Klor-Con 10] 10 meq PO DAILY 03/30/18 Brimonidine 0.15% [Alphagan P 1 drop EACHEYE Q12 10/04/18 0.15% Opht] Diclofenac Sodium [Voltaren] 75 mg PO Q12 PRN 10/04/18 Ferrous Sulfate [Feosol] 325 mg PO DAILY 10/04/18 Oxycodone HCl/Acetaminophen 1 tab PO Q6 PRN 10/04/18 [Percocet 10-325 mg Tablet] amLODIPine [Norvasc] 5 mg PO DAILY 10/04/18 - Allergies Allergies/Adverse Reactions: Allergies Allergy/AdvReac Type Severity Reaction Status Date / Time amoxicillin Allergy RASH Verified 08/23/18 13:47 Penicillins Allergy RASH Verified 08/23/18 13:47 shellfish derived Allergy PAIN Verified 08/23/18 13:47 Sulfa (Sulfonamide Allergy RASH Verified 08/23/18 13:47 Antibiotics) Review of Systems ROS Statement: Except As Marked, All Systems Reviewed And Found Negative Musculoskeletal: Positive for: Leg Pain (left; from knee to hip) Physical Exam - Reviewed Nursing Documentation Reviewed: Yes Vital Signs Reviewed: Yes - Physical Exam Appears: Positive for: No Acute Distress Head Exam: Positive for: ATRAUMATIC, NORMAL INSPECTION, NORMOCEPHALIC Skin: Positive for: Normal Color, Warm, Dry, Rash Eye Exam: Positive for: EOMI, Normal appearance, PERRL Cardiovascular/Chest: Positive for: Regular Rate, Rhythm. Negative for: Murmur Respiratory: Positive for: Normal Breath Sounds. Negative for: Respiratory Distress Extremity: Positive for: Tenderness (mild tenderness to left anterior knee), Other (right lower extremity deferred for podiatry. Left lower extremity: old scar to left anterior knee ). Negative for: Swelling (erythema, induration or ecchymosis to left knee) Neurologic/Psych: Positive for: Alert, Oriented. Negative for: Motor/Sensory Deficits - Laboratory Results Result Diagrams: 10/06/18 14:13 10/06/18 14:13 - ECG O2 Sat by Pulse Oximetry: 99 (RA) Pulse Ox Interpretation: Normal Medical Decision Making Medical Decision Makin:22 Impression: left knee pain; surgical admission Initial Plan: --EKG --CBC --CMP --CXR --PTT/PT --Morphine 2 mg IV --LLE Duplex US --Left knee x-ray 15:37 Duplex US FINDINGS: 2-D, color and duplex Doppler analysis of the lower extremity venous circulation using routine protocol from the femoral veins through the popliteal veins. Venous compressibility: Normal. Flow and augmentation patterns: Normal. Visualized veins upper third of calf: Normal. Ray cyst: None. There is an enlarged left inguinal lymph node which measures 3.5 x 1.7 x 1.0 cm. IMPRESSION: No sonographic or Doppler evidence for DVT in left lower extremity. Solitary enlarged left inguinal lymph node which may be infectious, inflammatory or neoplastic in etiology. Clinical follow-up is advised 16:38 Left knee x-ray FINDINGS: BONES: There is diffuse bone demineralization. No acute displaced fracture or bone destruction. Bone alignment is normal. JOINTS: Status post total cemented knee arthroplasty. Lucency surrounding the hardware in the proximal tibia measures 2 mm. No evidence for loosening or hardware complications. JOINT EFFUSION: Small suprapatellar joint effusion. OTHER FINDINGS: None. IMPRESSION: Status post total cemented knee arthroplasty, no acute displaced fracture or dislocation. Small suprapatellar joint effusion. Scribe Attestation: Documented by Olesya Haynes acting as a scribe for Noni Rodarte MD Provider Scribe Attestation: All medical record entries made by the Scribe were at my direction and personally dictated by me. I have reviewed the chart and agree that the record accurately reflects my personal performance of the history, physical exam, medical decision making, and the department course for this patient. I have also personally directed, reviewed, and agree with the discharge instructions and disposition. Disposition - Clinical Impression Clinical Impression: Venous stasis ulcer - Patient ED Disposition Is Patient to be Admitted: Yes - Disposition Disposition Time: 15:53 Condition: STABLE - Pt Status Changed To: Hospital Disposition Of: Inpatient - Admit Certification Admit to Inpatient:: After my assessment, the patient will require hospitalization for at least two midnights. This is because of the severity of symptoms shown, intensity of services needed, and/or the medical risk in this patient being treated as an outpatient. - POA Present On Arrival: None
[2018-10-04 15:48] LABS: BASO # 0.1 K/uL (0.0-0.2); BASO % 1.1 % (0.0-2.0); EOS # 0.2 K/uL (0.0-0.7); EOS % 2.6 % (0.0-4.0); HEMOGLOBIN 9.6 g/dL (12.0-16.0); LYMPH % 11.6 % (20.0-40.0); MEAN CELL VOLUME 84.6 fl (81.0-99.0); MEAN CORPUSCULAR HEMOGLOBIN 25.9 pg (27.0-31.0); MEAN CORPUSCULAR HGB CONC 30.6 g/dL (33.0-37.0); MEAN PLATELET VOLUME 7.9 fl (7.2-11.7); MONO # 1.2 K/uL (0.0-0.8); MONO % 14.6 % (0.0-10.0); NEUT # 5.9 K/uL (1.8-7.0); NEUT % 70.1 % (50.0-75.0); NRBC % 0.2 % (0.0-0.0); RBC 3.71 Mil/uL (3.80-5.20); RED CELL DISTRIBUTION WIDTH 16.5 % (11.5-14.5); WHITE BLOOD COUNT 8.5 K/uL (4.8-10.8)
[2018-10-04 15:57] LABS: INR 1.1
[2018-10-04 15:59] LABS: PARTIAL THROMBOPLASTIN TIME 89.5 Seconds (25.6-37.1)
[2018-10-04 16:04] LABS: ALB/GLOB RATIO 1.1 (1.0-2.1); ALBUMIN 3.8 g/dL (3.5-5.0); ALT/SGPT 20 U/L (9-52); AST/SGOT 21 U/L (14-36); BLOOD UREA NITROGEN 17 mg/dl (7-17); CALCIUM 8.8 mg/dL (8.4-10.2); GFR NON-AFRICAN AMERICAN > 60
--- NOTE | 2018-10-04 16:39 | RAD ---
Date of service: 10/04/2018 PROCEDURE: CHEST RADIOGRAPH, 1 VIEW HISTORY: Admission COMPARISON: 03/30/2018. FINDINGS: Right-sided MediPort terminates in the SVC. LUNGS: The lungs are well inflated. There is mild pulmonary venous congestion. No focal consolidation. PLEURA: No pneumothorax or pleural effusion. CARDIOVASCULAR: The heart is normal in size. No aortic atherosclerotic calcifications present. OSSEOUS STRUCTURES: Within normal limits for the patient's age. VISUALIZED UPPER ABDOMEN: Normal. OTHER FINDINGS: None. IMPRESSION: No active pulmonary disease. Mild pulmonary venous congestion.
--- NOTE | 2018-10-04 16:41 | RAD ---
Date of service: 10/04/2018 PROCEDURE: Left Knee Radiographs. HISTORY: Pain. COMPARISON: 10/30/2017 FINDINGS: BONES: There is diffuse bone demineralization. No acute displaced fracture or bone destruction. Bone alignment is normal. JOINTS: Status post total cemented knee arthroplasty. Lucency surrounding the hardware in the proximal tibia measures 2 mm. No evidence for loosening or hardware complications. JOINT EFFUSION: Small suprapatellar joint effusion. OTHER FINDINGS: None. IMPRESSION: Status post total cemented knee arthroplasty, no acute displaced fracture or dislocation. Small suprapatellar joint effusion.
[2018-10-04] MEDS ORDERED: Patient's Own Med (Oxycodone Hcl/Acetaminophen [Percocet 10-325 Mg Tablet] 1 TAB) PO PRN (19:38)
[2018-10-04] MEDS ORDERED: Patient's Own Med (Brimonidine 0.15% [Alphagan P 0.15% Opht] 1 DROP) EACHEYE SCH (21:00)
[2018-10-04] MEDS ORDERED: Oxycodone/Acetaminophen 5/325 mg Tab PO PRN (22:43)
[2018-10-04] MEDS: Oxycodone/Acetaminophen 5/325 mg Tab PO PRN (22:58)
[2018-10-04] MEDS: Pantoprazole 40 mg EC Tab PO SCH (23:05)
[2018-10-04] MEDS: Brimonidine 0.2% 50 DROP/5 ML BOTTLE OU SCH (23:39)
[2018-10-05] MEDS ORDERED: Lidocaine 1% Inj (20ml) ONE (08:17)
[2018-10-05] MEDS ORDERED: Bupivacaine 0.5% Inj(30mL) ONE (08:17)
[2018-10-05] MEDS ORDERED: ceFAZolin IV 1 gm in Dextrose 0 GM/0 ML BAG IVPB ONE (08:18)
--- NOTE | 2018-10-05 08:28 | CP.PCM.PN ---
Subjective - Date & Time of Evaluation Date of Evaluation: 10/05/18 Time of Evaluation: 08:26 - Subjective Subjective: Podiatry progress note for Dr. Schaffer 68F seen and evaluated at bedside. Resting comfortably. Denies pain or complaints with right sided dressing. States that she is aware of surgery today. NPO status confirmed. Denies N/V/F/C/SOB/CP and has no other acute complaints. Objective - Vital Signs/Intake and Output Vital Signs (last 24 hours): Temp Pulse Resp BP Pulse Ox 97.5 F L 74 20 156/84 H 100 10/05/18 07:53 10/05/18 07:53 10/05/18 07:53 10/05/18 07:53 10/05/18 07:53 - Medications Medications: Current Medications Amlodipine Besylate (Norvasc) 5 mg PO DAILY [facility] Brimonidine Tartrate (Alphagan 0.2% Opht) 1 drop OU Q12 [facility] Last Admin: 10/04/18 23:39 Dose: 1 drop Doxycycline Hyclate (Doryx) 100 mg PO Q12 [facility]; Protocol Ferrous Sulfate (Feosol) 325 mg PO DAILY [facility] Furosemide (Lasix) 40 mg PO DAILY [facility] Gabapentin (Neurontin) 300 mg PO Q8 [facility] Last Admin: 10/05/18 01:40 Dose: Not Given Home Med (Diclofenac Sodium [Voltaren]) 75 mg PO Q12 PRN PRN Reason: Pain, moderate (4-7) Multivitamins/Minerals (Therapeutic-M Tab) 1 tab PO DAILY [facility] Oxycodone/Acetaminophen (Percocet 5/325 Mg Tab) 1 tab PO Q6 PRN PRN Reason: Pain, moderate (4-7) Stop: 10/07/18 22:44 Oxycodone/Acetaminophen (Percocet 5/325 Mg Tab) 2 tab PO Q6 PRN PRN Reason: Pain, severe (8-10) Stop: 10/07/18 22:45 Last Admin: 10/04/18 22:58 Dose: 2 tab Pantoprazole Sodium (Protonix Ec Tab) 40 mg PO HS [facility] Last Admin: 10/04/18 23:05 Dose: 40 mg Potassium Chloride (Klor-Con 10) 10 meq PO DAILY [facility] Zolpidem Tartrate (Ambien) 5 mg PO HS PRN PRN Reason: Insomnia - Labs Labs: 10/04/18 15:40 10/04/18 15:40 PT 12.0 Seconds (9.8-13.1) 10/04/18 15:40 INR 1.1 10/04/18 15:40 APTT 89.5 Seconds (25.6-37.1) H 10/04/18 15:40 - Constitutional Appears: Well, Non-toxic, No Acute Distress - Head Exam Head Exam: ATRAUMATIC, NORMOCEPHALIC - Extremities Exam Additional comments: RLE dressing is clean, dry, intact - left in place Vasc: DP and PT pulses 1/4; cap refill <3 seconds to all digits Neuro: gross and protective sensation intact b/l - Neurological Exam Neurological Exam: Alert, Awake, Oriented x3 - Psychiatric Exam Psychiatric exam: Normal Affect, Normal Mood Assessment and Plan - Assessment and Plan (Free Text) Assessment: 68F seen and evaluated at bedside preoperatively for right leg wound debridement and harvest for graft application Plan: Pt was seen and examined at bedside Pt NPO status was confirmed All pre-op testing and clearance in chart Pt has exhausted all conservative treatment at this time and is opting for surgical intervention Pt was explained procedure and post-operative course All pt's questions were answered to satisfaction No guarantees were made Pt understands all risks, benefits and complications of procedure Pt will follow-up with Dr. Schaffer within 1 week of surgery
[2018-10-05] MEDS ORDERED: Clindamycin 600mg/50ml D5W 600 MG/50 ML VIAL IVPB ONE (08:33)
[2018-10-05] MEDS ORDERED: Bupivacaine 0.5% Inj(30mL) IJ ONE (08:33)
[2018-10-05] MEDS ORDERED: Lidocaine 100 MG in Sodium Chloride 0.9% 100 ML IV ONE (08:33)
[2018-10-05] MEDS ORDERED: Sodium Chloride 0.9% 1,000 ML IV SCH (08:45)
[2018-10-05] MEDS: Potassium Chloride 10 mEq ER Tab PO SCH ×2 (08:55→16:14)
[2018-10-05] MEDS: Multivitamin With Minerals Tab PO SCH (08:56)
[2018-10-05] MEDS: Brimonidine 0.2% 50 DROP/5 ML BOTTLE OU SCH ×2 (08:57→20:13)
--- NOTE | 2018-10-05 10:20 | CP.PCM.CON ---
History of Present Illness - History of Present Illness History of Present Illness: THE PATIENT IS A 68 YEAR OLD FEMALE WHO WILL HAVE A RIGHT LATERAL LOWER LEG SKIN GRAFT FOR AN ULCER. I HAVE BEEN ASKED TO CLEAR HER FOR SURGERY. SHE HAS A HISTORY OF HYPERTENSION AND SHE HAD RLR DVT YEARS AGO. SHE DENIES CAD, CHEST PAIN, DM OR COPD. Past Patient History - Past Medical History & Family History Past Medical History?: Yes - Past Social History Smoking Status: Never Smoked - CARDIAC Hx Hypertension: Yes - PULMONARY Hx Respiratory Disorders: No - NEUROLOGICAL Hx Neurological Disorder: No - HEENT Hx HEENT Problems: No - RENAL Hx Chronic Kidney Disease: No - ENDOCRINE/METABOLIC Hx Endocrine Disorders: No - HEMATOLOGICAL/ONCOLOGICAL Hx Blood Disorders: No Hx AIDS: No Hx Human Immunodeficiency Virus (HIV): No - INTEGUMENTARY Hx Dermatological Problems: Yes - MUSCULOSKELETAL/RHEUMATOLOGICAL Hx Arthritis: Yes Hx Rheumatoid Arthritis: Yes - GASTROINTESTINAL Hx Gastrointestinal Disorders: No - GENITOURINARY/GYNECOLOGICAL Hx Genitourinary Disorders: No - PSYCHIATRIC Hx Psychophysiologic Disorder: No Hx Substance Use: No - SURGICAL HISTORY Hx Joint Replacement: Yes (TOTAL RIGHT KNEE REPLACEMENT 2010) Hx Orthopedic Surgery: Yes (left knee replaced) Other/Comment: SX FOR BLOOD CLOTS RT ANKLE - ANESTHESIA Hx Anesthesia: Yes Hx Anesthesia Reactions: No Hx Malignant Hyperthermia: No Meds Allergies/Adverse Reactions: Allergies Allergy/AdvReac Type Severity Reaction Status Date / Time amoxicillin Allergy RASH Verified 08/23/18 13:47 Penicillins Allergy RASH Verified 08/23/18 13:47 shellfish derived Allergy PAIN Verified 08/23/18 13:47 Sulfa (Sulfonamide Allergy RASH Verified 08/23/18 13:47 Antibiotics) - Medications Medications: Current Medications Amlodipine Besylate (Norvasc) 5 mg PO DAILY [facility] Last Admin: 10/05/18 08:56 Dose: Not Given Brimonidine Tartrate (Alphagan 0.2% Opht) 1 drop OU Q12 [facility] Last Admin: 10/05/18 08:57 Dose: 1 drop Doxycycline Hyclate (Doryx) 100 mg PO Q12 [facility]; Protocol Ferrous Sulfate (Feosol) 325 mg PO DAILY [facility] Last Admin: 10/05/18 08:55 Dose: Not Given Furosemide (Lasix) 40 mg PO DAILY [facility] Last Admin: 10/05/18 08:55 Dose: Not Given Gabapentin (Neurontin) 300 mg PO Q8 [facility] Last Admin: 10/05/18 08:55 Dose: Not Given Home Med (Diclofenac Sodium [Voltaren]) 75 mg PO Q12 PRN PRN Reason: Pain, moderate (4-7) Sodium Chloride (Sodium Chloride 0.9%) 1,000 mls @ 0 mls/hr IV .Q0M [facility] Stop: 10/06/18 08:34 Multivitamins/Minerals (Therapeutic-M Tab) 1 tab PO DAILY [facility] Last Admin: 10/05/18 08:56 Dose: Not Given Oxycodone/Acetaminophen (Percocet 5/325 Mg Tab) 1 tab PO Q6 PRN PRN Reason: Pain, moderate (4-7) Stop: 10/07/18 22:44 Oxycodone/Acetaminophen (Percocet 5/325 Mg Tab) 2 tab PO Q6 PRN PRN Reason: Pain, severe (8-10) Stop: 10/07/18 22:45 Last Admin: 10/04/18 22:58 Dose: 2 tab Pantoprazole Sodium (Protonix Ec Tab) 40 mg PO HS [facility] Last Admin: 10/04/18 23:05 Dose: 40 mg Potassium Chloride (Klor-Con 10) 10 meq PO DAILY [facility] Last Admin: 10/05/18 08:55 Dose: Not Given Zolpidem Tartrate (Ambien) 5 mg PO HS PRN PRN Reason: Insomnia Physical Exam - Respiratory Exam Respiratory Exam: Clear to Auscultation Bilateral - Cardiovascular Exam Cardiovascular Exam: REGULAR RHYTHM, +S1, +S2 - Extremities Exam Additional comments: RIGHT LEG WITH DRESSINGS LLE WITHOUT EDEMA - Additional Findings Additional findings: EKG NSR(MOTION ARTEFACT) CXR REPORT SEEN BUT JUST CHRONIC CHANGES IN MY OPINION Results - Vital Signs Recent Vital Signs: Last Vital Signs Temp 97.5 F L 10/05/18 07:53 Pulse 74 10/05/18 07:53 Resp 20 10/05/18 07:53 BP 156/84 H 10/05/18 07:53 Pulse Ox 100 10/05/18 07:53 - Labs Result Diagrams: 10/06/18 14:13 10/06/18 14:13 Labs: Laboratory Results - last 24 hr 10/04/18 10/04/18 10/04/18 15:40 15:40 15:40 WBC 8.5 RBC 3.71 L Hgb 9.6 L Hct 31.4 L MCV 84.6 MCH 25.9 L MCHC 30.6 L RDW 16.5 H Plt Count 383 D MPV 7.9 Neut % (Auto) 70.1 Lymph % (Auto) 11.6 L [place] % (Auto) 14.6 H Eos % (Auto) 2.6 Baso % (Auto) 1.1 Neut # (Auto) 5.9 Lymph # (Auto) 1.0 [place] # (Auto) 1.2 H Eos # (Auto) 0.2 Baso # (Auto) 0.1 PT 12.0 INR 1.1 APTT 89.5 H Sodium 141 Potassium 4.0 Chloride 105 Carbon Dioxide 25 Anion Gap 15 BUN 17 Creatinine 0.9 Est GFR ( Amer) > 60 Est GFR (Non-Af Amer) > 60 Random Glucose 93 Calcium 8.8 Total Bilirubin 0.1 L AST 21 ALT 20 Alkaline Phosphatase 109 Total Protein 7.2 Albumin 3.8 Globulin 3.4 Albumin/Globulin Ratio 1.1 Assessment & Plan - Assessment and Plan (Free Text) Assessment: HYPERTENSION RIGHT FOOT ULCER Plan: THE PATIENT IS CLEARED FOR SURGERY
[2018-10-05] MEDS ORDERED: Ropivacaine 0.5% 30ML IV ONE (10:43)
[2018-10-05] MEDS ORDERED: Lactated Ringer's 1,000 ML IV ONE (10:45)
[2018-10-05] MEDS ORDERED: Oxycodone/Acetaminophen 5/325 mg Tab PO PRN (11:49)
[2018-10-05] MEDS ORDERED: HYDROmorphone 0.5 mg/0.5 ml ISec IVP PRN (11:52)
--- NOTE | 2018-10-05 11:54 | PCM.SURG1 ---
Surgeon's Initial Post Op Note - Surgeon's Notes Surgeon: Dr. York, DPM Protohistorian: Dr. Yessenia Hernández PGY1 Type of Anesthesia: IV Sedation Pre-Operative Diagnosis: Right non-healing ulceration Operative Findings: See dictation. I: None. M: 3-0 Prolene, 2-0 Vicryl Post-Operative Diagnosis: Same Operation Performed: Right wound debridement, right full thickness graft harvest Specimen/Specimens Removed: None Estimated Blood Loss: EBL {In ML}: 1 Blood Products Given: N/A Drains Used: No Drains Post-Op Condition: Good Date of Surgery/Procedure: 10/05/18 Time of Surgery/Procedure: 11:56
--- NOTE | 2018-10-05 11:59 | PCM.ANESB2 ---
Popliteal Nerve Block - Popliteal Nerve Block Date of Procedure: 10/05/18 Anesthesiologist: Soy Pre-Procedure Diagnosis: Nonhealing right leg ucer Post-Procedure Diagnosis: Same Procedure Performed: Popliteal Nerve Block Right - Procedure Popliteal Nerve Block: This procedure was explained to the patient that it is for post-operative pain management. Consent was obtained after a thorough discussion with the patient regarding the benefits and possible complications of local anesthetic block of the sciatic nerve at the popliteal level. The patient was brought to the ope rating room and standard monitors are applied. Time-out was held with the circulating nurse to confirm the correct surgery and the appropriate block. Under general anesthesia, patient's operative leg was gently raised and supported and the groove in between the biceps femoris and vastus lateralis muscles was carefully palpated. The skin approximately 8cm above the popliteal crease was then marked. The ultrasound transducer was then applied to the posterior thigh approximately 8cm above the popliteal crease in the transverse plane and the sciatic nerve before its division was visualized lateral to the popliteal artery and in between the bicep femoris and semimembranosus/semitendinosus muscles. After identification, the lateral portion of the thigh was prepped with Betadine solution three times with chloraprep. At this point, a # 21 gauge Stimuplex insulated 4 inch needle was inserted into pre-marked area and advanced in a perpendicular direction. The needle was inserted above the ultrasound transducer in-plane towards the sciatic nerve in a [id number] direction. Needle advancement was performed carefully under direct ultrasound visualization. Nerve stimulator was used and dorsiflexion of the __right___ foot was elicited at a current of __0.4___ MA. After repeated negative aspiration, __2___cc of __0.5___ % ___ropivicaien was injected and this was flowed with _28 cc of _0.5 % _ropivacaine . Under ultrasound guidance the local anesthetics were observed surrounding sciatic nerve . The needle was removed intact and sterile dressing was applied. The patient tolerated the popliteal nerve block well with stable vital signs and was subsequently prepared for the surgery.
[2018-10-05] MEDS: Lactated Ringer's 1,000 ML IV SCH ×2 (13:53→21:02)
[2018-10-05] MEDS: Oxycodone/Acetaminophen 5/325 mg Tab PO PRN (20:13)
--- NOTE | 2018-10-05 20:24 | CARD ---
APPROVED REPORT Date of service: 10/04/2018 EKG Measurement Heart [id number] <Conclusion> Normal sinus rhythm Right atrial enlargement Borderline ECG
[2018-10-05] MEDS: Pantoprazole 40 mg EC Tab PO SCH (21:01)
[2018-10-06] MEDS: Oxycodone/Acetaminophen 5/325 mg Tab PO PRN ×3 (06:35→20:20)
--- NOTE | 2018-10-06 07:27 | OP ---
PROCEDURE DATE: 10/05/2018 SURGEON: Froilan Bernard DPM CONSTRUCTION [employer] LABORER: Yessenia Salinas, PGY-1 ANESTHESIOLOGIST: Derrick Olivier MD ANESTHESIA: IV sedation with regional block. PREOPERATIVE DIAGNOSIS: Right leg nonhealing wound. POSTOPERATIVE DIAGNOSIS: Right leg nonhealing wound. PROCEDURES: 1. Right leg graft harvest polarity TE. 2. Right leg wound debridement with Misonix, Preperation of wound bed for graft. INDICATIONS: The patient is a 68-year-old female with the above diagnosis. The patient has exhausted all conservative treatment at this time and now requires surgical intervention. The patient signed the consent after careful explanation of risks, benefits, complications, and alternatives for surgical procedure. No guarantees were given nor implied. N.p.o. status was confirmed prior to taking the patient to operating room. PREPARATION: The patient was brought back into the operating room and placed on the operating room table in the supine position. Time-out was performed for identification of the correct patient and procedure. The patient received a right popliteal block. The right foot was then prepped and draped in the normal sterile manner and the procedure began. No tourniquet was used during this procedure. DESCRIPTION OF PROCEDURE: 1. First, attention was directed to the lateral proximal one-third of the leg, where a 3 cm x 1 cm full-thickness elliptical incision was made using a #15 blade, making sure to include all layers of skin from the epidermis to subcutaneous fat. The graft was then passed off the operating field and placed in a sterile specimen cup. A 40 mL of crystalloid solution and 0.5 mL of gentamicin were added to the graft and properly passed off the sterile field in to the appropriate specimen barrier to be shipped for processing. The incision site was then copiously irrigated with sterile saline, and the subcutaneous tissue was sutured with 2-0 Vicryl and the skin was sutured with 3-0 Prolene. 2. Next, attention was then drawn to the right leg wound, measuring 8 cm x 5 cm. Utilizing the Misonix headpiece on the setting of 7, the ulcer was debrided of all superficial fibrotic and nonviable tissue to a real granular bleeding wound bed. The ulceration site was then copiously irrigated with sterile saline. The incision site and wound were then individually dressed with Adaptic, gauze, Kerlix, and Eze bandage. POSTOPERATIVE CONDITION: The patient tolerated anesthesia and procedure well and was escorted to the recovery room with neurovascular status intact to the right leg with vital signs stable. The patient will remain in-house and Podiatry will continue to follow. Yessenia Salinas Froilan Bernard DPM [facility]
[2018-10-06] MEDS: Brimonidine 0.2% 50 DROP/5 ML BOTTLE OU SCH ×2 (08:22→20:15)
[2018-10-06] MEDS: Multivitamin With Minerals Tab PO SCH (08:23)
[2018-10-06] MEDS: Potassium Chloride 10 mEq ER Tab PO SCH (08:23)
--- NOTE | 2018-10-06 09:36 | CP.PCM.PN ---
Subjective - Date & Time of Evaluation Date of Evaluation: 10/06/18 Time of Evaluation: 08:45 - Subjective Subjective: NO CHEST PAIN OR SOB Objective - Vital Signs/Intake and Output Vital Signs (last 24 hours): Temp Pulse Resp BP Pulse Ox 98.3 F 70 19 143/78 96 10/06/18 08:00 10/06/18 08:00 10/06/18 08:00 10/06/18 08:24 10/06/18 08:00 - Medications Medications: Current Medications Acetaminophen (Tylenol 325mg Tab) 325 mg PO Q4 PRN PRN Reason: Pain, Mild (1-3) Amlodipine Besylate (Norvasc) 5 mg PO DAILY [facility] Last Admin: 10/06/18 08:24 Dose: 5 mg Brimonidine Tartrate (Alphagan 0.2% Opht) 1 drop OU Q12 [facility] Last Admin: 10/06/18 08:22 Dose: 1 drop Doxycycline Hyclate (Doryx) 100 mg PO Q12 [facility]; Protocol Last Admin: 10/06/18 08:23 Dose: 100 mg Ferrous Sulfate (Feosol) 325 mg PO DAILY [facility] Last Admin: 10/06/18 08:23 Dose: 325 mg Furosemide (Lasix) 40 mg PO DAILY [facility] Last Admin: 10/06/18 08:24 Dose: 40 mg Gabapentin (Neurontin) 300 mg PO Q8 [facility] Last Admin: 10/06/18 08:23 Dose: 300 mg Home Med (Diclofenac Sodium [Voltaren]) 75 mg PO Q12 PRN PRN Reason: Pain, moderate (4-7) Multivitamins/Minerals (Therapeutic-M Tab) 1 tab PO DAILY [facility] Last Admin: 10/06/18 08:23 Dose: 1 tab Oxycodone/Acetaminophen (Percocet 5/325 Mg Tab) 2 tab PO Q6 PRN PRN Reason: Pain, severe (8-10) Stop: 10/07/18 22:45 Last Admin: 10/06/18 06:35 Dose: 2 tab Oxycodone/Acetaminophen (Percocet 5/325 Mg Tab) 1 tab PO Q4 PRN PRN Reason: Pain, moderate (4-7) Stop: 10/08/18 11:50 Pantoprazole Sodium (Protonix Ec Tab) 40 mg PO HS [facility] Last Admin: 10/05/18 21:01 Dose: 40 mg Potassium Chloride (Klor-Con 10) 10 meq PO DAILY [facility] Last Admin: 10/06/18 08:23 Dose: 10 meq Zolpidem Tartrate (Ambien) 5 mg PO HS PRN PRN Reason: Insomnia - Labs Labs: 10/04/18 15:40 10/04/18 15:40 PT 12.0 Seconds (9.8-13.1) 10/04/18 15:40 INR 1.1 10/04/18 15:40 APTT 89.5 Seconds (25.6-37.1) H 10/04/18 15:40 - Respiratory Exam Respiratory Exam: Clear to Ausculation Bilateral - Cardiovascular Exam Cardiovascular Exam: REGULAR RHYTHM, +S1, +S2 - Extremities Exam Additional comments: RIGHT LEG WITH SURGICAL DRESSINGS - Additional Findings Additional findings: OR NOTES REVIEWED WITH RIGHT WOUND DEBRIDEMENT AND FULL THICKNESS SKIN GRAFT HARVESTING Assessment and Plan - Assessment and Plan (Free Text) Assessment: S/P PODIATRY SURGERY HYPERTENSION Plan: CONTINUE AMLODIPINE PER PODIATRY
--- NOTE | 2018-10-06 09:39 | CP.PCM.PN ---
Subjective - Date & Time of Evaluation Date of Evaluation: 10/06/18 Time of Evaluation: 09:37 - Subjective Subjective: Podiatry progress note for Dr. Schaffer 68F seen and evaluated at bedside POD 1 right leg wound debridement and harvest for graft. Resting comfortably. Denies pain or complaints with right sided dressing. States she still has some numbness in her right lower leg but knows it is from the nerve block she received. Denies N/V/F/C/SOB/CP and has no other acute complaints. Objective - Vital Signs/Intake and Output Vital Signs (last 24 hours): Temp Pulse Resp BP Pulse Ox 98.3 F 70 19 143/78 96 10/06/18 08:00 10/06/18 08:00 10/06/18 08:00 10/06/18 08:24 10/06/18 08:00 - Medications Medications: Current Medications Acetaminophen (Tylenol 325mg Tab) 325 mg PO Q4 PRN PRN Reason: Pain, Mild (1-3) Amlodipine Besylate (Norvasc) 5 mg PO DAILY [facility] Last Admin: 10/06/18 08:24 Dose: 5 mg Brimonidine Tartrate (Alphagan 0.2% Opht) 1 drop OU Q12 [facility] Last Admin: 10/06/18 08:22 Dose: 1 drop Doxycycline Hyclate (Doryx) 100 mg PO Q12 [facility]; Protocol Last Admin: 10/06/18 08:23 Dose: 100 mg Ferrous Sulfate (Feosol) 325 mg PO DAILY [facility] Last Admin: 10/06/18 08:23 Dose: 325 mg Furosemide (Lasix) 40 mg PO DAILY [facility] Last Admin: 10/06/18 08:24 Dose: 40 mg Gabapentin (Neurontin) 300 mg PO Q8 [facility] Last Admin: 10/06/18 08:23 Dose: 300 mg Home Med (Diclofenac Sodium [Voltaren]) 75 mg PO Q12 PRN PRN Reason: Pain, moderate (4-7) Multivitamins/Minerals (Therapeutic-M Tab) 1 tab PO DAILY [facility] Last Admin: 10/06/18 08:23 Dose: 1 tab Oxycodone/Acetaminophen (Percocet 5/325 Mg Tab) 2 tab PO Q6 PRN PRN Reason: Pain, severe (8-10) Stop: 10/07/18 22:45 Last Admin: 10/06/18 06:35 Dose: 2 tab Oxycodone/Acetaminophen (Percocet 5/325 Mg Tab) 1 tab PO Q4 PRN PRN Reason: Pain, moderate (4-7) Stop: 10/08/18 11:50 Pantoprazole Sodium (Protonix Ec Tab) 40 mg PO HS [facility] Last Admin: 10/05/18 21:01 Dose: 40 mg Potassium Chloride (Klor-Con 10) 10 meq PO DAILY [facility] Last Admin: 10/06/18 08:23 Dose: 10 meq Zolpidem Tartrate (Ambien) 5 mg PO HS PRN PRN Reason: Insomnia - Labs Labs: 10/04/18 15:40 10/04/18 15:40 PT 12.0 Seconds (9.8-13.1) 10/04/18 15:40 INR 1.1 10/04/18 15:40 APTT 89.5 Seconds (25.6-37.1) H 10/04/18 15:40 - Constitutional Appears: Well, Non-toxic, No Acute Distress - Head Exam Head Exam: ATRAUMATIC, NORMOCEPHALIC - Extremities Exam Additional comments: RLE dressing clean and dry Neuro vascular status intact to the RLE No signs of infection distal or proximal to dressing appreciated - Neurological Exam Neurological Exam: Alert, Awake, Oriented x3 - Psychiatric Exam Psychiatric exam: Normal Affect, Normal Mood Assessment and Plan - Assessment and Plan (Free Text) Assessment: 68F POD 1 right leg wound debridement and harvest for graft Plan: Patient seen and evaluated Discussed in detail with Dr. Schaffer Afebrile, absent leukocytosis Dressing left intact Patient for OR tomorrow 7:45 AM for graft placement NPO after midnight ordered Cardiology, Dr. Anders consulted - recs appreciated Will continue to follow
[2018-10-06] MEDS ORDERED: Magnesium Hydroxide Susp 30 ml UD PO ONE (10:31)
[2018-10-06 14:16] LABS: HEMOGLOBIN 10.1 g/dL (12.0-16.0); MEAN CELL VOLUME 84.1 fl (81.0-99.0); MEAN CORPUSCULAR HEMOGLOBIN 26.4 pg (27.0-31.0); MEAN CORPUSCULAR HGB CONC 31.4 g/dL (33.0-37.0); RBC 3.84 Mil/uL (3.80-5.20); RED CELL DISTRIBUTION WIDTH 16.4 % (11.5-14.5); WHITE BLOOD COUNT 10.3 K/uL (4.8-10.8)
[2018-10-06 14:56] LABS: BLOOD UREA NITROGEN 12 mg/dl (7-17); CALCIUM 9.2 mg/dL (8.4-10.2); GFR NON-AFRICAN AMERICAN > 60
--- NOTE | 2018-10-06 16:35 | RAD ---
PROCEDURE: Left Hip X-ray Radiographs. HISTORY: Left hip pain, fell at home COMPARISON: CT left hip 11/01/2017 FINDINGS: BONES: Patient status post left total hip arthroplasty for prior left femoral neck fracture. No interval fractures noted. No hardware failure appreciated L4-5 disc space narrowing with prominent marginal osteophytosis noted. Right L5 sacralized transverse process. Bilateral bony excrescence off each lateral iliac crest noted. JOINTS: Sacroiliac and pubic symphyseal joints unremarkable. Mild right hip joint space narrowing. SOFT TISSUES: Moderate stool retention in large popcorn type calcified uterine fibroids noted. Additional bilateral tiny hemipelvic phleboliths inferred. OTHER FINDINGS: None. IMPRESSION: No interval fracture seen. Total left hip arthroplasty-hardware appears intact. Other findings as above.
--- NOTE | 2018-10-06 17:37 | HP ---
HISTORY OF PRESENT ILLNESS: The patient is a 68-year-old female with history of multiple medical problems including osteoarthritis, status post right hip replacement, presented for chronic right leg ulcer. The patient was seen by Podiatry and referred to hospital for admission and further management of the right leg ulcer. The patient denied to have any chest pain or shortness of breath. The patient had previous history of DVT many years ago. The patient has no nausea or vomiting and other review of system is negative. ALLERGIES: POSITIVE FOR AMOXICILLIN, PENICILLIN, SHELLFISH AND SULFA. MEDICATIONS: As per MAR, reviewed and ordered. SOCIAL HISTORY: Denied history of smoking, EtOH or substance abuse. FAMILY HISTORY: Noncontributory. PAST MEDICAL HISTORY: Bronchial asthma, osteoarthritis, and hypertension. PHYSICAL EXAMINATION: GENERAL: The patient is in bed, not in any cardiopulmonary distress. VITAL SIGNS: Blood pressure 137/85, temperature 98.1, respiratory rate 18 and pulse 84. HEENT: Pupils equal, reactive to light. Normal-appearing mucosa of the conjunctivae, oropharynx and nasal membrane mucosa. NECK: Supple. No JVD. No carotid bruit. No lymph node. No thyromegaly. CHEST AND LUNGS: Bilateral symmetrical expansion. Good air exchange. No rales, no rhonchi. CARDIOVASCULAR: PMI not localized. S1 and S2. No additional sounds. ABDOMEN: Normoactive bowel sounds. No tenderness. No organomegaly. No masses. EXTREMITIES: No cyanosis, no clubbing. Right foot is surgically dressed by Podiatry. REHABILITATION ENGINEER: Alert, awake, oriented x2. No neurological deficit could be appreciated. ASSESSMENT: Hypertension, osteoarthritis, and chronic right leg ulcer. PLAN: Followup Podiatry recommendations and for possible skin graft. Cardiology consult was called for to clear the patient before surgery. Resume the patient's home medications and pain management. Terry Munoz MD
[2018-10-06] MEDS: Pantoprazole 40 mg EC Tab PO SCH (21:06)
[2018-10-07] MEDS ORDERED: Lidocaine 1% Inj (20ml) ONE (07:21)
[2018-10-07] MEDS ORDERED: Bupivacaine 0.5% Inj(30mL) ONE (07:21)
[2018-10-07] MEDS ORDERED: Lactated Ringer's 1,000 ML IV ONE (07:30)
[2018-10-07] MEDS ORDERED: Propofol 10 mg/ml Inj (20 ML) ONE (07:33)
[2018-10-07] MEDS ORDERED: Midazolam 2 MG/2 ML VIAL ONE (07:34)
[2018-10-07] MEDS ORDERED: Lidocaine 1% 5ml Abboject ONE (07:34)
[2018-10-07] MEDS ORDERED: Lidocaine 2% Jelly (5 ml) TOP ONE (07:34)
[2018-10-07] MEDS ORDERED: Lidocaine 1% Inj (20ml) IJ ONE ×2 (07:35→08:15)
[2018-10-07] MEDS ORDERED: Bupivacaine 0.5% Inj(30mL) IJ ONE ×2 (07:35→08:15)
[2018-10-07] MEDS ORDERED: Clindamycin 600mg/50ml D5W 600 MG/50 ML VIAL IVPB ONE (07:35)
--- NOTE | 2018-10-07 07:35 | CP.PCM.PN ---
Subjective - Date & Time of Evaluation Date of Evaluation: 10/07/18 Time of Evaluation: 07:32 - Subjective Subjective: Podiatry progress note for Dr. Schaffer 68F seen and evaluated at bedside POD 2 right leg wound debridement and harvest for graft. Resting comfortably. Reports pain to the RLE and states that all feeling has come back since the nerve block wore off. Aware of surgery today for graft placement. Denies N/V/F/C/SOB/CP and has no other acute complaints. NPO status confirmed. Objective - Vital Signs/Intake and Output Vital Signs (last 24 hours): Temp Pulse Resp BP Pulse Ox 97.5 F L 86 20 146/80 99 10/07/18 07:25 10/07/18 07:25 10/07/18 07:25 10/07/18 07:25 10/07/18 07:25 - Medications Medications: Current Medications Acetaminophen (Tylenol 325mg Tab) 325 mg PO Q4 PRN PRN Reason: Pain, Mild (1-3) Amlodipine Besylate (Norvasc) 5 mg PO DAILY [facility] Last Admin: 10/06/18 08:24 Dose: 5 mg Brimonidine Tartrate (Alphagan 0.2% Opht) 1 drop OU Q12 [facility] Last Admin: 10/06/18 20:15 Dose: 1 drop Docusate Sodium (Colace) 100 mg PO BID [facility] Last Admin: 10/06/18 16:26 Dose: 100 mg Ferrous Sulfate (Feosol) 325 mg PO DAILY [facility] Last Admin: 10/06/18 08:23 Dose: 325 mg Furosemide (Lasix) 40 mg PO DAILY [facility] Last Admin: 10/06/18 08:24 Dose: 40 mg Gabapentin (Neurontin) 300 mg PO Q8 [facility] Last Admin: 10/07/18 00:56 Dose: 300 mg Home Med (Diclofenac Sodium [Voltaren]) 75 mg PO Q12 PRN PRN Reason: Pain, moderate (4-7) Multivitamins/Minerals (Therapeutic-M Tab) 1 tab PO DAILY [facility] Last Admin: 10/06/18 08:23 Dose: 1 tab Oxycodone/Acetaminophen (Percocet 5/325 Mg Tab) 2 tab PO Q6 PRN PRN Reason: Pain, severe (8-10) Stop: 10/07/18 22:45 Last Admin: 10/06/18 20:20 Dose: 2 tab Oxycodone/Acetaminophen (Percocet 5/325 Mg Tab) 1 tab PO Q4 PRN PRN Reason: Pain, moderate (4-7) Stop: 10/08/18 11:50 Pantoprazole Sodium (Protonix Ec Tab) 40 mg PO HS [facility] Last Admin: 10/06/18 21:06 Dose: 40 mg Potassium Chloride (Klor-Con 10) 10 meq PO DAILY [facility] Last Admin: 10/06/18 08:23 Dose: 10 meq Zolpidem Tartrate (Ambien) 5 mg PO HS PRN PRN Reason: Insomnia - Labs Labs: 10/06/18 14:13 10/06/18 14:13 PT 12.0 Seconds (9.8-13.1) 10/04/18 15:40 INR 1.1 10/04/18 15:40 APTT 89.5 Seconds (25.6-37.1) H 10/04/18 15:40 - Constitutional Appears: Well, Non-toxic, No Acute Distress - Head Exam Head Exam: ATRAUMATIC, NORMOCEPHALIC - Extremities Exam Additional comments: RLE dressing clean and dry Neuro vascular status intact to the RLE No signs of infection distal or proximal to dressing appreciated - Neurological Exam Neurological Exam: Alert, Awake, Oriented x3 - Psychiatric Exam Psychiatric exam: Normal Affect, Normal Mood Assessment and Plan - Assessment and Plan (Free Text) Assessment: 68F POD 2 right leg wound debridement and harvest for graft; seen preoperatively for graft placement today Plan: Pt was seen and examined at bedside Pt NPO status was confirmed All pre-op testing and clearance in chart Pt has exhausted all conservative treatment at this time and is opting for surgical intervention Pt was explained procedure and post-operative course All pt's questions were answered to satisfaction No guarantees were made Pt understands all risks, benefits and complications of procedure Pt will follow-up with Dr. Schaffre within 1 week of surgery
[2018-10-07] MEDS ORDERED: Sodium Chloride 0.9% 1,000 ML IV SCH (07:45)
[2018-10-07] MEDS ORDERED: HYDROmorphone 0.5 mg/0.5 ml ISec IVP PRN (08:30)
[2018-10-07] MEDS ORDERED: Lactated Ringer's 1,000 ML IV SCH (08:30)
--- NOTE | 2018-10-07 08:33 | PCM.SURG1 ---
Surgeon's Initial Post Op Note - Surgeon's Notes Surgeon: Dr. York Cardiology Nurse Practitioner: Dr. Yessenia Hernández PGY1 Anesthesia Administered By: Dr. Sands Pre-Operative Diagnosis: Right non-healing ulceration Operative Findings: See dictation. I: 20 cc of 1:1 mix 1% lidocaine plain, 0.5% marcaine plain. M: Polarity full thickness skin graft Post-Operative Diagnosis: Same Operation Performed: Full thickness skin graft to R leg Specimen/Specimens Removed: None Estimated Blood Loss: EBL {In ML}: 1 Blood Products Given: N/A Drains Used: No Drains Post-Op Condition: Good Date of Surgery/Procedure: 10/07/18 Time of Surgery/Procedure: 08:33
--- NOTE | 2018-10-07 09:48 | CP.PCM.PN ---
Subjective - Date & Time of Evaluation Date of Evaluation: 10/07/18 Time of Evaluation: 07:00 - Subjective Subjective: NO CHEST PAIN OR SOB Objective - Vital Signs/Intake and Output Vital Signs (last 24 hours): Temp Pulse Resp BP Pulse Ox 98.0 F 78 20 152/86 H 99 10/07/18 09:15 10/07/18 09:15 10/07/18 09:15 10/07/18 09:15 10/07/18 09:15 Intake and Output: 10/07/18 10/07/18 06:59 18:59 Intake Total 400 Balance 400 - Medications Medications: Current Medications Acetaminophen (Tylenol 325mg Tab) 325 mg PO Q4 PRN PRN Reason: Pain, Mild (1-3) Amlodipine Besylate (Norvasc) 5 mg PO DAILY [facility] Last Admin: 10/06/18 08:24 Dose: 5 mg Brimonidine Tartrate (Alphagan 0.2% Opht) 1 drop OU Q12 [facility] Last Admin: 10/06/18 20:15 Dose: 1 drop Docusate Sodium (Colace) 100 mg PO BID [facility] Last Admin: 10/06/18 16:26 Dose: 100 mg Ferrous Sulfate (Feosol) 325 mg PO DAILY [facility] Last Admin: 10/06/18 08:23 Dose: 325 mg Furosemide (Lasix) 40 mg PO DAILY [facility] Last Admin: 10/06/18 08:24 Dose: 40 mg Gabapentin (Neurontin) 300 mg PO Q8 [facility] Last Admin: 10/07/18 00:56 Dose: 300 mg Home Med (Diclofenac Sodium [Voltaren]) 75 mg PO Q12 PRN PRN Reason: Pain, moderate (4-7) Hydromorphone HCl (Dilaudid) 0.5 mg IVP Q10M PRN PRN Reason: Pain, moderate (4-7) Stop: 10/07/18 10:31 Sodium Chloride (Sodium Chloride 0.9%) 1,000 mls @ 0 mls/hr IV .Q0M [facility] Stop: 10/08/18 07:36 Lactated Ringer's (Lactated Ringer's) 1,000 mls @ 100 mls/hr IV .Q10H [facility] Last Admin: 10/07/18 08:30 Dose: 0 mls Multivitamins/Minerals (Therapeutic-M Tab) 1 tab PO DAILY [facility] Last Admin: 10/06/18 08:23 Dose: 1 tab Ondansetron HCl (Zofran Inj) 4 mg IVP ONCE PRN PRN Reason: Nausea/Vomiting Stop: 10/07/18 10:31 Oxycodone/Acetaminophen (Percocet 5/325 Mg Tab) 2 tab PO Q6 PRN PRN Reason: Pain, severe (8-10) Stop: 10/07/18 22:45 Last Admin: 10/06/18 20:20 Dose: 2 tab Oxycodone/Acetaminophen (Percocet 5/325 Mg Tab) 1 tab PO Q4 PRN PRN Reason: Pain, moderate (4-7) Stop: 10/08/18 11:50 Pantoprazole Sodium (Protonix Ec Tab) 40 mg PO HS [facility] Last Admin: 10/06/18 21:06 Dose: 40 mg Potassium Chloride (Klor-Con 10) 10 meq PO DAILY [facility] Last Admin: 10/06/18 08:23 Dose: 10 meq Zolpidem Tartrate (Ambien) 5 mg PO HS PRN PRN Reason: Insomnia - Labs Labs: 10/06/18 14:13 10/06/18 14:13 PT 12.0 Seconds (9.8-13.1) 10/04/18 15:40 INR 1.1 10/04/18 15:40 APTT 89.5 Seconds (25.6-37.1) H 10/04/18 15:40 - Respiratory Exam Respiratory Exam: Clear to Ausculation Bilateral - Cardiovascular Exam Cardiovascular Exam: REGULAR RHYTHM, +S1 Assessment and Plan - Assessment and Plan (Free Text) Assessment: RIGHT LEG ULCER HYPERTENSION Plan: FOR SKIN GRAFTING TODAY
--- NOTE | 2018-10-07 10:00 | PN ---
DATE: 10/06/2018 SUBJECTIVE: The patient was seen 10/06/2018. She is postoperative day #1. PHYSICAL EXAMINATION: VITAL SIGNS: Blood pressure was 143/78, temperature 97.8, respiratory rate 18 and pulse 74. HEENT: Pupils equal, reactive to light. Normal-appearing mucosa of the conjunctiva, oropharyngeal and nasal membrane mucosa. NECK: Supple. No JVD. No carotid bruit. No lymph node. No thyromegaly. CHEST AND LUNGS: Bilateral symmetrical expansion. Good air exchange. No rales. No rhonchi. CARDIOVASCULAR SYSTEM: PMI not localized. S1, S2. No additional sounds. ABDOMEN: Normoactive bowel sounds. No tenderness. No organomegaly. No masses. EXTREMITIES: No cyanosis. No clubbing. No edema. DRAWER IN HAND: Alert, awake, oriented x2. No neurological deficit could be appreciated. Right foot is surgically dressed. ASSESSMENT: 1. Postoperative day #1 status post chronic right foot ulcer skin grafting. 2. Hypertension. 3. Osteoarthritis. 4. Left hip pain. PLAN: We will order x-ray for the left hip and pain management and continue current medications and follow Podiatry recommendations. Terry Munoz MD
[2018-10-07] MEDS: Brimonidine 0.2% 50 DROP/5 ML BOTTLE OU SCH ×2 (11:02→21:48)
[2018-10-07] MEDS: Potassium Chloride 10 mEq ER Tab PO SCH (11:03)
[2018-10-07] MEDS: Multivitamin With Minerals Tab PO SCH (11:04)
--- NOTE | 2018-10-07 16:45 | CP.PCM.CON ---
History of Present Illness - History of Present Illness History of Present Illness: Orthopedic consult: Dr. Rivera Patient is a 68 y/o female c/o L knee and hip pain for the past month. The patient was admitted due to RLE ulceration which was grafted in OR. Patient c/o L hip and knee pain which has persisted over the past month without history of trauma. The patient has history of L TKA performed in [address] Rivera and has been f/u in office routinely. Her last appt 2 months ago, she had similar complaints and was sent for course of therapy and oral medications which has helped minimally. Currently she has pain that is moderate and located medially. She reports a soft mass at the knee that was present last month but has since subsided. The pain is associated with swelling and stiffness. She is able to WB and ambulate with mild pain causing her to shuffle. She also c/o L hip pain which began shortly following the knee pain last month. She attributes the pain to the unsteady gait she has had due to her knee pain. She has history of L ZORAN due to femoral neck fx in October [address] Rinaldi. Currently, she denies CP/SOB/N/V/D/fever/dysuria/melena. Review of Systems - Review of Systems All systems: reviewed and no additional remarkable complaints except Review of Systems: as per HPI Past Patient History - Past Medical History & Family History Past Medical History?: Yes Past Family History: Reviewed and not pertinent - Past Social History Smoking Status: Never Smoked Alcohol: None Drugs: Denies - CARDIAC Hx Hypertension: Yes - PULMONARY Hx Respiratory Disorders: No - NEUROLOGICAL Hx Neurological Disorder: No - HEENT Hx HEENT Problems: No - RENAL Hx Chronic Kidney Disease: No - ENDOCRINE/METABOLIC Hx Endocrine Disorders: No - HEMATOLOGICAL/ONCOLOGICAL Hx Blood Disorders: No Hx AIDS: No Hx Human Immunodeficiency Virus (HIV): No - INTEGUMENTARY Hx Dermatological Problems: Yes - MUSCULOSKELETAL/RHEUMATOLOGICAL Hx Arthritis: Yes Hx Rheumatoid Arthritis: Yes - GASTROINTESTINAL Hx Gastrointestinal Disorders: No - GENITOURINARY/GYNECOLOGICAL Hx Genitourinary Disorders: No - PSYCHIATRIC Hx Psychophysiologic Disorder: No Hx Substance Use: No - SURGICAL HISTORY Hx Joint Replacement: Yes (TOTAL RIGHT KNEE REPLACEMENT 2010) Hx Orthopedic Surgery: Yes (left knee replaced) Other/Comment: SX FOR BLOOD CLOTS RT ANKLE - ANESTHESIA Hx Anesthesia: Yes Hx Anesthesia Reactions: No Hx Malignant Hyperthermia: No Meds Allergies/Adverse Reactions: Allergies Allergy/AdvReac Type Severity Reaction Status Date / Time amoxicillin Allergy RASH Verified 08/23/18 13:47 Penicillins Allergy RASH Verified 08/23/18 13:47 shellfish derived Allergy PAIN Verified 08/23/18 13:47 Sulfa (Sulfonamide Allergy RASH Verified 08/23/18 13:47 Antibiotics) - Medications Medications: Current Medications Acetaminophen (Tylenol 325mg Tab) 325 mg PO Q4 PRN PRN Reason: Pain, Mild (1-3) Amlodipine Besylate (Norvasc) 5 mg PO DAILY [facility] Last Admin: 10/07/18 11:04 Dose: 5 mg Brimonidine Tartrate (Alphagan 0.2% Opht) 1 drop OU Q12 [facility] Last Admin: 10/07/18 11:02 Dose: 1 drop Diphenhydramine HCl (Benadryl) 25 mg PO Q6 PRN PRN Reason: Itching / Pruritus Last Admin: 10/07/18 11:06 Dose: 25 mg Docusate Sodium (Colace) 100 mg PO BID [facility] Last Admin: 10/07/18 11:02 Dose: 100 mg Ferrous Sulfate (Feosol) 325 mg PO DAILY [facility] Last Admin: 10/07/18 11:03 Dose: 325 mg Furosemide (Lasix) 40 mg PO DAILY [facility] Last Admin: 10/07/18 11:03 Dose: 40 mg Gabapentin (Neurontin) 300 mg PO Q8 [facility] Last Admin: 10/07/18 11:04 Dose: 300 mg Home Med (Diclofenac Sodium [Voltaren]) 75 mg PO Q12 PRN PRN Reason: Pain, moderate (4-7) Sodium Chloride (Sodium Chloride 0.9%) 1,000 mls @ 0 mls/hr IV .Q0M [facility] Stop: 10/08/18 07:36 Lactated Ringer's (Lactated Ringer's) 1,000 mls @ 100 mls/hr IV .Q10H [facility] Last Admin: 10/07/18 08:30 Dose: 150 mls Multivitamins/Minerals (Therapeutic-M Tab) 1 tab PO DAILY [facility] Last Admin: 10/07/18 11:04 Dose: 1 tab Oxycodone/Acetaminophen (Percocet 5/325 Mg Tab) 2 tab PO Q6 PRN PRN Reason: Pain, severe (8-10) Stop: 10/07/18 22:45 Last Admin: 10/06/18 20:20 Dose: 2 tab Oxycodone/Acetaminophen (Percocet 5/325 Mg Tab) 1 tab PO Q4 PRN PRN Reason: Pain, moderate (4-7) Stop: 10/08/18 11:50 Pantoprazole Sodium (Protonix Ec Tab) 40 mg PO HS [facility] Last Admin: 10/06/18 21:06 Dose: 40 mg Potassium Chloride (Klor-Con 10) 10 meq PO DAILY [facility] Last Admin: 10/07/18 11:03 Dose: 10 meq Zolpidem Tartrate (Ambien) 5 mg PO HS PRN PRN Reason: Insomnia Physical Exam - Constitutional Appears: Well, No Acute Distress - Head Exam Head Exam: ATRAUMATIC, NORMOCEPHALIC - Eye Exam Eye Exam: EOMI, Normal appearance, PERRL - ENT Exam ENT Exam: Mucous Membranes Moist - Respiratory Exam Respiratory Exam: NORMAL BREATHING PATTERN - Cardiovascular Exam Cardiovascular Exam: +S1, +S2 - GI/Abdominal Exam GI & Abdominal Exam: Soft. absent: Tenderness - Extremities Exam Additional comments: L knee: midline incision well healed mild swelling and effusion tenderness diffuse medially well balanced prosthesis no warmth or erythema ROM 0-90 deg sensation intact SP/DP/TN motor intact EHL/FHL/TA/G/Q/HS calves soft NT b/l L hip: anterior hip incision well healed no masses/lesions/warmth/erythema tenderness at hip flexors FROM without pain Results - Vital Signs Recent Vital Signs: Last Vital Signs Temp 98.1 F 10/07/18 16:00 Pulse 72 10/07/18 16:00 Resp 18 10/07/18 16:00 BP 137/79 10/07/18 16:00 Pulse Ox 99 10/07/18 16:00 - Labs Result Diagrams: 10/06/18 14:13 10/06/18 14:13 - Impressions Impression: Accession No. : [id number] Patient Name / ID : DIONE RUFF / [id number] Exam Date : 10/04/2018 15:42:15 ( Approved ) Study Comment : Sex / Age : F / 68Y Creator : Alice Rothman MD Dictator : Alice Rothman MD Fire Dispatcher : Indigo [employer] Tender Cloth : Alice Rothman MD Approver2 : Report Date : 10/04/2018 16:37:46 My Comment : Date of service: 10/04/2018 PROCEDURE: Left Knee Radiographs. HISTORY: Pain. COMPARISON: 10/30/2017 FINDINGS: BONES: There is diffuse bone demineralization. No acute displaced fracture or bone destruction. Bone alignment is normal. JOINTS: Status post total cemented knee arthroplasty. Lucency surrounding the hardware in the proximal tibia measures 2 mm. No evidence for loosening or hardware complications. JOINT EFFUSION: Small suprapatellar joint effusion. OTHER FINDINGS: None. IMPRESSION: Status post total cemented knee arthroplasty, no acute displaced fracture or d islocation. Small suprapatellar joint effusion. Accession No. : [id number] Patient Name / ID : DIONE RUFF / [id number] Exam Date : 10/07/2018 13:55:13 ( Approved ) Study Comment : Sex / Age : F / 68Y Creator : Negrito Park MD Dictator : Negrito Park MD Fire Dispatcher : [employer] Tender Cloth : Negrito Park MD Approver2 : Report Date : 10/07/2018 16:56:30 My Comment : PROCEDURE: Left Hip X-ray Radiographs. HISTORY: left hip and knee pain COMPARISON: October 06, 2018. Left hip 10/29/2017 pelvis documenting subcapital fracture proximal left femur. FINDINGS: BONES: Satisfactory position alignment of components left ZORAN. JOINTS: Degenerative changes right hip are stable. SOFT TISSUES: Normal. OTHER FINDINGS: Stable partially calcified fibroids. IMPRESSION: No acute findings related to/ accounting for the clinical presentation. Assessment & Plan (1) Pain due to knee joint prosthesis Assessment and Plan: -Dr. Rivera recommends continued conservative management at this time -PT/OT WBAT -pain control -orthopedically stable for discharge to home -f/u in office with Dr. Rivera within 7-10 days -above d/w Dr. Rivera in agreement Status: Acute (2) Strain of hip flexor Assessment and Plan: -hardware intact, no loosening -PT/OT -pain control, NSAID's Status: Acute
--- NOTE | 2018-10-07 17:02 | RAD ---
PROCEDURE: Left Hip X-ray Radiographs. HISTORY: left hip and knee pain COMPARISON: October 06, 2018. Left hip 10/29/2017 pelvis documenting subcapital fracture proximal left femur. FINDINGS: BONES: Satisfactory position alignment of components left ZORAN. JOINTS: Degenerative changes right hip are stable. SOFT TISSUES: Normal. OTHER FINDINGS: Stable partially calcified fibroids. IMPRESSION: No acute findings related to/ accounting for the clinical presentation.
--- NOTE | 2018-10-07 17:02 | RAD ---
Date of service: 10/07/2018 PROCEDURE: Left Knee Radiographs. HISTORY: Venous stasis ulcer. Pain. No history of recent/ related trauma provided COMPARISON: 10/04/2018 FINDINGS: BONES: Stable position of components left TKA. JOINTS: No significant interval change compared to the prior examination(s). JOINT EFFUSION: None. OTHER FINDINGS: None. IMPRESSION: No acute or significant findings related to/ accounting for the clinical presentation. Additional benign and/or incidental findings described above. No significant interval change compared to the prior examination(s).
[2018-10-07] MEDS: Pantoprazole 40 mg EC Tab PO SCH (21:49)
--- NOTE | 2018-10-08 02:42 | PN ---
DATE: 10/07/2018 SUBJECTIVE: The patient was seen today, 10/07/2018, postoperative after placing a skin graft. The patient was complaining of left hip pain and left knee swelling. PHYSICAL EXAMINATION: VITAL SIGNS: Blood pressure 161/80, temperature 97.8, respiratory rate 19, and pulse 88. HEENT: Pupils equal and reactive to light. Normal-appearing mucosa of the conjunctivae, oropharynx, and nasal membrane mucosa. NECK: Supple. No JVD. No carotid bruit. No lymph node. No thyromegaly. CHEST AND LUNGS: Bilateral symmetrical expansion. Good air exchange. No rales, no rhonchi. CARDIOVASCULAR SYSTEM: PMI not localized. S1, S2. No additional sounds. ABDOMEN: Normoactive bowel sounds. No tenderness. No organomegaly. No masses. EXTREMITIES: No cyanosis, no clubbing, and there is swelling of knee with also decreased range of motion of the left hip. The right foot is surgically dressed after the surgery. ASSESSMENT: Status post left hip replacement, left knee osteoarthritis with possible knee effusion, status post chronic ulcer treatment, management of the right foot with skin grafting, hypertension, history of bronchial asthma. PLAN: We will order x-ray of the left hip and orthopedic consult. Follow podiatry recommendations. Terry Munoz MD
[2018-10-08 06:45] VITALS: RESP 20
--- NOTE | 2018-10-08 09:05 | CP.PCM.PN ---
Subjective - Date & Time of Evaluation Date of Evaluation: 10/08/18 Time of Evaluation: 09:03 - Subjective Subjective: Podiatry progress note for Dr. Schaffer 68F seen and evaluated at bedside POD 3 right leg wound debridement and harvest for graft/POD 1 graft placement. Resting comfortably. Denies any pain or discomfort to the right lower extremity. States she contacted the wound center and needs the dressing reinforced before she goes home. Denies N/V/F/C/SOB/CP and has no other acute complaints. Objective - Vital Signs/Intake and Output Vital Signs (last 24 hours): Temp Pulse Resp BP Pulse Ox 98.2 F 80 20 166/93 H 100 10/08/18 04:30 10/08/18 04:30 10/08/18 04:30 10/08/18 04:30 10/08/18 04:30 - Medications Medications: Current Medications Acetaminophen (Tylenol 325mg Tab) 325 mg PO Q4 PRN PRN Reason: Pain, Mild (1-3) Amlodipine Besylate (Norvasc) 5 mg PO DAILY [facility] Last Admin: 10/07/18 11:04 Dose: 5 mg Brimonidine Tartrate (Alphagan 0.2% Opht) 1 drop OU Q12 [facility] Last Admin: 10/07/18 21:48 Dose: 1 drop Diphenhydramine HCl (Benadryl) 25 mg PO Q6 PRN PRN Reason: Itching / Pruritus Last Admin: 10/07/18 11:06 Dose: 25 mg Docusate Sodium (Colace) 100 mg PO BID [facility] Last Admin: 10/07/18 17:05 Dose: 100 mg Ferrous Sulfate (Feosol) 325 mg PO DAILY [facility] Last Admin: 10/07/18 11:03 Dose: 325 mg Furosemide (Lasix) 40 mg PO DAILY [facility] Last Admin: 10/07/18 11:03 Dose: 40 mg Gabapentin (Neurontin) 300 mg PO Q8 [facility] Last Admin: 10/08/18 00:24 Dose: 300 mg Home Med (Diclofenac Sodium [Voltaren]) 75 mg PO Q12 PRN PRN Reason: Pain, moderate (4-7) Lactated Ringer's (Lactated Ringer's) 1,000 mls @ 100 mls/hr IV .Q10H [facility] Last Admin: 10/07/18 08:30 Dose: 150 mls Multivitamins/Minerals (Therapeutic-M Tab) 1 tab PO DAILY [facility] Last Admin: 10/07/18 11:04 Dose: 1 tab Oxycodone/Acetaminophen (Percocet 5/325 Mg Tab) 1 tab PO Q4 PRN PRN Reason: Pain, moderate (4-7) Stop: 10/08/18 11:50 Pantoprazole Sodium (Protonix Ec Tab) 40 mg PO HS [facility] Last Admin: 10/07/18 21:49 Dose: 40 mg Potassium Chloride (Klor-Con 10) 10 meq PO DAILY [facility] Last Admin: 10/07/18 11:03 Dose: 10 meq - Labs Labs: 10/06/18 14:13 10/06/18 14:13 PT 12.0 Seconds (9.8-13.1) 10/04/18 15:40 INR 1.1 10/04/18 15:40 APTT 89.5 Seconds (25.6-37.1) H 10/04/18 15:40 - Constitutional Appears: Well, Non-toxic, No Acute Distress - Head Exam Head Exam: ATRAUMATIC, NORMOCEPHALIC - Extremities Exam Additional comments: RLE dressing clean and dry Neuro vascular status intact to the RLE No signs of infection distal or proximal to dressing appreciated - Neurological Exam Neurological Exam: Alert, Awake, Oriented x3 - Psychiatric Exam Psychiatric exam: Normal Affect, Normal Mood Assessment and Plan - Assessment and Plan (Free Text) Assessment: 68F POD 3 right leg wound debridement and graft harvest, POD 1 graft placement Plan: Patient seen and evaluated Discussed in detail with Dr. Schaffer Afebrile Coban wrap applied superficially over dressing Patient happy with dressing security All questions and concerns addressed Patient will f/u with Dr. Schaffer in [facility] [place] center in 1 week Patient stable for discharge
--- NOTE | 2018-10-08 09:16 | CP.PCM.PN ---
Subjective - Date & Time of Evaluation Date of Evaluation: 10/08/18 Time of Evaluation: 09:00 - Subjective Subjective: NO CHEST PAIN OR SOB Objective - Vital Signs/Intake and Output Vital Signs (last 24 hours): Temp Pulse Resp BP Pulse Ox 98.2 F 80 20 166/93 H 100 10/08/18 04:30 10/08/18 04:30 10/08/18 04:30 10/08/18 04:30 10/08/18 04:30 - Medications Medications: Current Medications Acetaminophen (Tylenol 325mg Tab) 325 mg PO Q4 PRN PRN Reason: Pain, Mild (1-3) Amlodipine Besylate (Norvasc) 5 mg PO DAILY [facility] Last Admin: 10/07/18 11:04 Dose: 5 mg Brimonidine Tartrate (Alphagan 0.2% Opht) 1 drop OU Q12 [facility] Last Admin: 10/07/18 21:48 Dose: 1 drop Diphenhydramine HCl (Benadryl) 25 mg PO Q6 PRN PRN Reason: Itching / Pruritus Last Admin: 10/07/18 11:06 Dose: 25 mg Docusate Sodium (Colace) 100 mg PO BID [facility] Last Admin: 10/07/18 17:05 Dose: 100 mg Ferrous Sulfate (Feosol) 325 mg PO DAILY [facility] Last Admin: 10/07/18 11:03 Dose: 325 mg Furosemide (Lasix) 40 mg PO DAILY [facility] Last Admin: 10/07/18 11:03 Dose: 40 mg Gabapentin (Neurontin) 300 mg PO Q8 [facility] Last Admin: 10/08/18 00:24 Dose: 300 mg Home Med (Diclofenac Sodium [Voltaren]) 75 mg PO Q12 PRN PRN Reason: Pain, moderate (4-7) Lactated Ringer's (Lactated Ringer's) 1,000 mls @ 100 mls/hr IV .Q10H [facility] Last Admin: 10/07/18 08:30 Dose: 150 mls Multivitamins/Minerals (Therapeutic-M Tab) 1 tab PO DAILY [facility] Last Admin: 10/07/18 11:04 Dose: 1 tab Oxycodone/Acetaminophen (Percocet 5/325 Mg Tab) 1 tab PO Q4 PRN PRN Reason: Pain, moderate (4-7) Stop: 10/08/18 11:50 Pantoprazole Sodium (Protonix Ec Tab) 40 mg PO HS [facility] Last Admin: 10/07/18 21:49 Dose: 40 mg Potassium Chloride (Klor-Con 10) 10 meq PO DAILY [facility] Last Admin: 10/07/18 11:03 Dose: 10 meq - Labs Labs: 10/06/18 14:13 10/06/18 14:13 PT 12.0 Seconds (9.8-13.1) 10/04/18 15:40 INR 1.1 10/04/18 15:40 APTT 89.5 Seconds (25.6-37.1) H 10/04/18 15:40 - Respiratory Exam Respiratory Exam: Clear to Ausculation Bilateral - Cardiovascular Exam Cardiovascular Exam: REGULAR RHYTHM, +S1, +S2 Assessment and Plan - Assessment and Plan (Free Text) Assessment: S/P SKIN GRAFTING OF RIGHT LEG ULCER HYPERTENSION Plan: FOR DISCHARGE TODAY CONTINUE AMLODIPINE
[2018-10-08 09:24] VITALS: BP 155/91; PULSE 82; TEMP 98; O2SAT 99
[2018-10-08] MEDS: Brimonidine 0.2% 50 DROP/5 ML BOTTLE OU SCH (09:52)
[2018-10-08] MEDS: Potassium Chloride 10 mEq ER Tab PO SCH (09:53)
[2018-10-08] MEDS: Multivitamin With Minerals Tab PO SCH (09:55)
--- NOTE | 2018-10-08 10:22 | OP ---
PROCEDURE DATE: 10/07/2018 SURGEON: Froilan Bernard DPM ELECTRICAL SERVICE TECHNICIAN: Dr. Carlyn Salinas, PGY-1 ANESTHESIOLOGIST: Diego Sands MD ANESTHESIA: IV sedation with local. PREOPERATIVE DIAGNOSIS: Right leg nonhealing wound. POSTOPERATIVE DIAGNOSIS: Right leg nonhealing wound. NAME OF PROCEDURE: Right leg full thickness skin graft with polarity te INDICATION: The patient is a 68-year-old female with the above diagnosis. The patient has exhausted all conservative treatments at this time and now requires surgical intervention. The patient signed the consent after careful explanation of risks, benefits, complications, and alternatives for surgical procedure. No guarantees were given nor implied. NPO status was confirmed prior to taking the patient to the operating room. PREPARATION: The patient was brought into the operating room and placed on the operating room table in a supine position. Time-out was performed for identification of the correct patient and procedure. The right leg was then prepped and draped in a normal sterile manner, and the procedure began. No tourniquet was used during this procedure. The right leg was mechanically debrided with chlorhexidine scrub brushes. DESCRIPTION OF PROCEDURE: Attention was drawn to the right leg wound measuring 8 x 5 cm. A 20 mL of 1:1 mixture of 0.5% Marcaine plain and 1% lidocaine plain was administered in a local block fashion to the right leg wound. The Polarity te full thickness graft harvested two days prior from the patient was then applied with a spatula to the wound, a silicone dressing was then applied. The wound was then dressed with gauze, Kerlix, and finally wrapped in Webril and Eze. POSTOPERATIVE CONDITION: The patient tolerated the local anesthesia and procedure well and was escorted to the recovery room with all neurovascular status intact to the right leg and vital signs stable. The patient will remain in-house. Podiatry will continue to follow. Upon discharge, the patient will follow up with Dr. Bernard in the wound care center within one week. CARLYN SALINAS Froilan Bernard DPM MTDJ [place]
--- NOTE | 2018-10-10 14:45 | DS ---
REASON FOR ADMISSION: A 68-year-old -[place] female with history of multiple medical problems, was admitted for chronic leg ulcer management. COURSE OF HOSPITALIZATION: The patient had skin grafting of the leg ulcer in two stages. The patient also was complaining of left hip pain and left knee pain. The patient had orthopedic consultation done by Dr. Rivera. The patient did well in surgery and postoperatively and discharged home, to be continued on the same medication and follow with Orthopedic Surgery as well as her primary care physician for further management. FINAL DIAGNOSES: Chronic leg ulcer, hypertension, bronchial asthma, osteoarthritis, status post left total hip replacement, left knee osteoarthritis. [facility] MD [place]
== END 2018-10-08 12:24 | disposition home or self-care (01) | DRG 264 ==
LOC: H.ER 12:26 → H.ERHOLD 15:53 → H.MEDSURG1 17:45
PROVIDERS: ADMIT Internal Medicine; ATTEND Internal Medicine
PROC: 0HBKXZZ Excision of Right Lower Leg Skin, External Approach (ICD-10-PCS; 2018-10-05)
PROC: 0HDKXZZ Extraction of Right Lower Leg Skin, External Approach (ICD-10-PCS; 2018-10-05)
PROC: 3E0T3BZ Introduction of Anesthetic Agent into Peripheral Nerves and Plexi, Percutaneous Approach (ICD-10-PCS; principal; 2018-10-05 09:00)
PROC: 0HRKX73 Replacement of Right Lower Leg Skin with Autologous Tissue Substitute, Full Thickness, External Approach (ICD-10-PCS; 2018-10-07)
PROC: 0HDKXZZ Extraction of Right Lower Leg Skin, External Approach (ICD-10-PCS; 2018-10-07)
DX: I87.8 Other specified disorders of veins (principal); L97.919 Non-pressure chronic ulcer of unspecified part of right lower leg with unspecified severity; T84.84XA Pain due to internal orthopedic prosthetic devices, implants and grafts, initial encounter; E11.51 Type 2 diabetes mellitus with diabetic peripheral angiopathy without gangrene; I10 Essential (primary) hypertension; Z86.718 Personal history of other venous thrombosis and embolism; Z96.653 Presence of artificial knee joint, bilateral; Y83.1 Surgical operation with implant of artificial internal device as the cause of abnormal reaction of the patient, or of later complication, without mention of misadventure at the time of the procedure; Z88.2 Allergy status to sulfonamides; Z88.0 Allergy status to penicillin; Z91.013 Allergy to seafood; Z96.642 Presence of left artificial hip joint; E11.622 Type 2 diabetes mellitus with other skin ulcer; M06.9 Rheumatoid arthritis, unspecified

== ENCOUNTER 2019-01-05 04:23 | Emergency (ER) | payer MEDICARE ==
[2019-01-05 04:23] VITALS: BMI 27.4
[2019-01-05 04:32] VITALS: O2SAT 99
--- NOTE | 2019-01-05 05:28 | ED PDOC ---
Lower Extremity Pain/Injury Time Seen by Provider: 01/05/19 04:31 Chief Complaint (Nursing): Hip Pain Chief Complaint (Provider): Hip Pain History Per: Patient History/Exam Limitations: no limitations Onset/Duration Of Symptoms: Days (x 1) Current Symptoms Are (Timing): Still Present Additional Complaint(s): 68 year old female with a history of DVT presents to the ED for evaluation of left hip pain since yesterday morning. Patient reports she feels pain radiating down her left leg to her knee and noticed her leg seems more swollen and heavier. She wears an Unna boot for a chronic ulcer. Patient had a prosthesis placed at her left hip in October 2017 and also another at her left knee. She does not take any anti-coagulation medication. Denies chest pain and shortness of breath. PMD: Dr. Mabry - Risk Factors DVT Risk Factors: Pos: History Of DVT Past Medical History Reviewed: Historical Data, Nursing Documentation, Vital Signs Vital Signs: Last Vital Signs Temp 98.6 F 01/05/19 04:29 Pulse 73 01/05/19 04:29 Resp 16 01/05/19 04:29 BP 147/88 01/05/19 04:29 Pulse Ox 99 01/05/19 04:29 - Medical History PMH: Arthritis, Diabetes, Deep Vein Thrombosis (left upper arm), HTN, Rheumatoid Arthritis Denies: HIV, Chronic Kidney Disease - Surgical History Surgical History: No Surg Hx - Family History Family History: States: Unknown Family Hx - Social History Current smoker - smoking cessation education provided: No Alcohol: None - Immunization History Hx Tetanus Toxoid Vaccination: Yes Hx Influenza Vaccination: Yes Hx Pneumococcal Vaccination: Yes - Home Medications Home Medications: Ambulatory Orders Medication Instructions Recorded Gabapentin [Neurontin] 300 mg PO Q8 12/05/15 Zolpidem [Ambien] 10 mg PO HS PRN 01/16/16 Latanoprost 0.005% Opht [Xalatan 1 drop BOTHEYES HS 05/26/17 Opht] Furosemide [Lasix] 40 mg PO DAILY 12/15/17 Multivit-Min/FA/Lycopen/Lutein 1 tab PO DAILY 03/30/18 [Centrum Silver Tablet] Omeprazole 40 mg PO HS 03/30/18 Potassium Chloride [Klor-Con 10] 10 meq PO DAILY 03/30/18 Brimonidine 0.15% [Alphagan P 1 drop EACHEYE Q12 10/04/18 0.15% Opht] Diclofenac Sodium [Voltaren] 75 mg PO Q12 PRN 10/04/18 Ferrous Sulfate [Feosol] 325 mg PO DAILY 10/04/18 Oxycodone HCl/Acetaminophen 1 tab PO Q6 PRN 10/04/18 [Percocet 10-325 mg Tablet] amLODIPine [Norvasc] 5 mg PO DAILY 10/04/18 traMADol [Ultram] 50 mg PO Q8 #10 tab 01/05/19 - Allergies Allergies/Adverse Reactions: Allergies Allergy/AdvReac Type Severity Reaction Status Date / Time amoxicillin Allergy RASH Verified 08/23/18 13:47 Penicillins Allergy RASH Verified 08/23/18 13:47 shellfish derived Allergy PAIN Verified 08/23/18 13:47 Sulfa (Sulfonamide Allergy RASH Verified 08/23/18 13:47 Antibiotics) Review of Systems ROS Statement: Except As Marked, All Systems Reviewed And Found Negative Musculoskeletal: Positive for: Leg Pain (left knee pain), Other (left hip pain) Physical Exam - Reviewed Nursing Documentation Reviewed: Yes Vital Signs Reviewed: Yes - Physical Exam Appears: Positive for: In Acute Distress (mild painful) Head Exam: Positive for: ATRAUMATIC, NORMOCEPHALIC Skin: Positive for: Warm, Dry Eye Exam: Positive for: EOMI, PERRL ENT: Negative for: Pharyngeal Erythema, Tonsillar Exudate Neck: Positive for: Painless ROM, Supple Cardiovascular/Chest: Positive for: Regular Rate, Rhythm. Negative for: Murmur Respiratory: Positive for: Normal Breath Sounds. Negative for: Respiratory Distress Gastrointestinal/Abdominal: Positive for: Soft. Negative for: Tenderness Back: Positive for: Normal Inspection. Negative for: Decreased ROM Extremity: Positive for: Tenderness (to deep palpation to the left knee with palpation log roll elicited), Pedal Edema (left lower leg and foot), Swelling (diffusely edematous left knee; Flexion limited secondary to pain), Other (5/5 plantar and dorsal flexion of left foot; light touch intact at all distributions of the foot ) Lymphatic: Negative for: Adenopathy Neurological/Psych: Positive for: Awake, Alert. Negative for: Motor/Sensory Deficits - Laboratory Results Result Diagrams: 01/05/19 05:45 04/10/19 05:45 - ECG O2 Sat by Pulse Oximetry: 99 (RA) Pulse Ox Interpretation: Normal Medical Decision Making Medical Decision Makin:53 Impression: Atraumatic left hip and knee pain Differential dxs include but are not limited to: hip strain, knee strain, acute fracture vs DVT --CMP --CBC --PTT --PT --Left knee x-ray --Left hip x-ray 06:19 Left hip x-ray: no fracture or dislocation. Prosthesis in place. Left hip with pelvis x-ray: no fracture or dislocation. Prosthesis in place. 05:42 --Toradol 30 mg IM --Tylenol 975 mg PO --Duplex US Left 07:00 Patient to be signed out to Dr. Lara pending US results, re-evaluation and final disposition. Scribe Attestation: Documented by Olesya Haynes, acting as a scribe for Yuko Valverde MD Provider Scribe Attestation: All medical record entries made by the Scribe were at my direction and personally dictated by me. I have reviewed the chart and agree that the record accurately reflects my personal performance of the history, physical exam, medical decision making, and the department course for this patient. I have also personally directed, reviewed, and agree with the discharge instructions and disposition Disposition - Clinical Impression Clinical Impression: Hip pain - Patient ED Disposition Is Patient to be Admitted: Transfer of Care - Disposition Referrals: Diya Mabry MD [Primary Care Provider] - Disposition: Transfer of Care Disposition Time: 07:05 Condition: STABLE Prescriptions: traMADol [Ultram] 50 mg PO Q8 #10 tab Forms: [facility] (Estonian) Patient Signed Over To: Garland Lara
[2019-01-05 05:54] LABS: PROTHROMBIN TIME 11.3 Seconds (9.8-13.1)
[2019-01-05 05:55] LABS: BASO % 0.3 % (0.0-2.0); EOS # 0.3 K/uL (0.0-0.7); EOS % 3.3 % (0.0-4.0); HEMOGLOBIN 10.5 g/dL (12.0-16.0); LYMPH # 0.7 K/uL (1.0-4.3); LYMPH % 7.4 % (20.0-40.0); MEAN CELL VOLUME 82.2 fl (81.0-99.0); MEAN CORPUSCULAR HEMOGLOBIN 25.9 pg (27.0-31.0); MEAN CORPUSCULAR HGB CONC 31.5 g/dL (33.0-37.0); MEAN PLATELET VOLUME 8.3 fl (7.2-11.7); MONO # 1.2 K/uL (0.0-0.8); NEUT # 7.6 K/uL (1.8-7.0); RBC 4.05 Mil/uL (3.80-5.20); RED CELL DISTRIBUTION WIDTH 16.8 % (11.5-14.5); WHITE BLOOD COUNT 9.9 K/uL (4.8-10.8)
[2019-01-05 05:57] LABS: PARTIAL THROMBOPLASTIN TIME 30.5 Seconds (25.6-37.1)
[2019-01-05 06:03] LABS: ALB/GLOB RATIO 1.1 (1.0-2.1); ALBUMIN 3.7 g/dL (3.5-5.0); ALT/SGPT 20 U/L (9-52); AST/SGOT 23 U/L (14-36); BLOOD UREA NITROGEN 20 mg/dl (7-17); CALCIUM 8.5 mg/dL (8.4-10.2); GFR NON-AFRICAN AMERICAN > 60
[2019-01-05 06:06] LABS: PLATELET COUNT 294 K/uL (130-400)
--- NOTE | 2019-01-05 07:04 | ED PDOC ---
- Laboratory Results Result Diagrams: 01/05/19 05:45 01/05/19 05:45 Lab Results: PT 11.3 Seconds (9.8-13.1) 01/05/19 05:45 INR 1.0 01/05/19 05:45 APTT 30.5 Seconds (25.6-37.1) 01/05/19 05:45 Total Bilirubin 0.5 mg/dl (0.2-1.3) 01/05/19 05:45 AST 23 U/L (14-36) 01/05/19 05:45 ALT 20 U/L (9-52) 01/05/19 05:45 Alkaline Phosphatase 89 U/L (38-126) 01/05/19 05:45 Total Protein 7.1 G/DL (6.3-8.2) 01/05/19 05:45 Albumin 3.7 g/dL (3.5-5.0) 01/05/19 05:45 Globulin 3.4 gm/dL (2.2-3.9) 01/05/19 05:45 Albumin/Globulin Ratio 1.1 (1.0-2.1) 01/05/19 05:45 - ECG O2 Sat by Pulse Oximetry: 99 (RA) Pulse Ox Interpretation: Normal Medical Decision Making Medical Decision Making: Time: 7:00 Patient with a past medical history of DVT is presenting to the ED for evaluation of left hip and was signed out to me by Dr. Valverde pending Ultrasound and final ER disposition. Scribe Attestation: Documented by Yoanna Monroy, acting as a scribe for Garland Lara MD. Provider Scribe Attestation: All medical record entries made by the Scribe were at my direction and personally dictated by me. I have reviewed the chart and agree that the record accurately reflects my personal performance of the history, physical exam, medical decision making, and the department course for this patient. I have also personally directed, reviewed, and agree with the discharge instructions and disposition. Disposition - Clinical Impression Clinical Impression: Hip pain - POA Present On Arrival: None - Disposition Referrals: Diya Mabry MD [Primary Care Provider] - Disposition: Routine/Home Disposition Time: 10:58 Condition: FAIR Prescriptions: traMADol [Ultram] 50 mg PO Q8 #10 tab Instructions: Hip Pain, Joint Pain Forms: [facility] (Slovak)
[2019-01-05 07:11] LABS: BANDS 1 % (0-2); BASOPHIL 1 % (0-2); EOSINOPHIL 3 % (0-7); LYMPHOCYTE 8 % (20-50); MONOCYTE 14 % (0-10); NEUTROPHIL 73 % (42-75); TOTAL CELLS COUNTED 100
[2019-01-05 07:12] LABS: HYPOCHROMIC SLIGHT; PLATELET ESTIMATE NORMAL (NORMAL)
[2019-01-05 09:44] VITALS: BP 142/75; PULSE 79; RESP 18; TEMP 98.8
--- NOTE | 2019-01-05 10:49 | US ---
Date of service: 01/05/2019 HISTORY: LEFT leg pain and swelling h/o DVT. PRIORS: None. FINDINGS: 2-D, color and duplex Doppler analysis of the lower extremity venous circulation using routine protocol from the femoral veins through the popliteal veins. Venous compressibility: Normal. Flow and augmentation patterns: Normal. Visualized veins upper third of calf: Normal. Ray cyst: None. Incidentally noted in the left groin is a normal-appearing lymph node measuring 1.6 x 0.9 by 2.4 cm. Its fatty hilum is maintained. No suspect cortical thickening seen. IMPRESSION: No sonographic or Doppler evidence for DVT in left lower extremity. Incidentally noted in the left groin is a normal appearing lymph node here.
--- NOTE | 2019-01-05 15:39 | RAD ---
PROCEDURE: Left Hip X-ray Radiographs. HISTORY: Left hip pain h/o prosthesis COMPARISON: None. TECHNIQUE: 3 views obtained. FINDINGS: BONES: Bone alignment is normal. There is no acute displaced fracture or bone destruction. There is diffuse bone demineralization. JOINTS: The is mild degenerative osteoarthrosis in the right hip joint. Status post left hip arthroplasty. No hardware complications. SOFT TISSUES: There are lobular calcifications overlying the pelvis most compatible with calcified fibroids. OTHER FINDINGS: None. IMPRESSION: No acute displaced fracture or dislocation. Please note occult fractures cannot be excluded on plain radiographs. If there is a persistent clinical concern, an MRI of the hip may be performed for further evaluation.
--- NOTE | 2019-01-05 15:44 | RAD ---
Date of service: 01/05/2019 PROCEDURE: Left Knee Radiographs. HISTORY: Pain. COMPARISON: 10/07/2018 TECHNIQUE: 3 views obtained. FINDINGS: BONES: There is severe diffuse bone demineralization. There is no acute displaced fracture or bone destruction. Bone alignment is normal. JOINTS: Status post total cemented knee arthroplasty. There is 3 mm lucency medial to the stem of the femoral prosthesis. JOINT EFFUSION: There is a small suprapatellar joint effusion. OTHER FINDINGS: There is mild periarticular soft tissue swelling. IMPRESSION: No acute displaced fracture or dislocation. 3 mm lucency medial to the stem of the femoral prosthesis may represent loosening. Small suprapatellar joint effusion.
== END 2019-01-05 12:54 | disposition home or self-care (01) ==
LOC: H.ER 04:23
DX: M25.552 Pain in left hip (principal)
CPT/HCPCS: 73502; 73562; 80053; 85025; 85610; 85730; 93971; 96374; 99284; J1885